=== PATIENT | male | born 1985 | race American Indian/Alaskan Native ===

== ENCOUNTER 2017-03-17 17:02 | Inpatient (IN) | payer MEDICARE, OTHER ==
[2017-03-17] MEDS ORDERED: Oxycodone/Acetaminophen 5/325 mg Tab PO STA ×2 (17:12→18:14)
[2017-03-17] MEDS ORDERED: Oxycodone/Acetaminophen 5/325 mg Tab ONE ×2 (17:26→18:17)
[2017-03-17 17:27] VITALS: BMI 33.9
--- NOTE | 2017-03-17 17:31 | C.PDOC ---
History Of Present Illness 31 y/o male brought to ER by EMT presenting complaints of acute bilateral knee pain. Patient states sitting down on sofa and when standing felt sudden pain and deformity accompanied by swelling on both knees. Patient has past medical history of extensive cardiac and hemodialysis but no blood thinners. No other complaints at this time. Time Seen by Provider: 03/17/17 17:05 Chief Complaint (Nursing): Lower Extremity Problem/Injury History Per: Patient History/Exam Limitations: no limitations Onset/Duration Of Symptoms: Hrs Current Symptoms Are (Timing): Still Present Severity: Mild - Hip Description Of Injury: Other (Sudden after sitting on sofa ) Past Medical History Reviewed: Historical Data, Nursing Documentation, Vital Signs Vital Signs: Last Vital Signs Temp 98.2 F 03/17/17 17:15 Pulse 87 03/17/17 20:10 Resp 22 03/17/17 20:10 BP 164/103 H 03/17/17 20:17 Pulse Ox 97 03/17/17 20:10 - Medical History PMH: Asthma (last attack sep 2013), HTN, End Stage Renal Disease (dialysis [facility]) , Chronic Kidney Disease - [facility] Procedures HEMODIALYSIS (10/05/13) OTHER SKIN & SUBQ I D (06/04/13) Family History: States: Unknown Family Hx - Social History Hx Tobacco Use: No Hx Alcohol Use: No Hx Substance Use: No - Immunization History Hx Tetanus Toxoid Vaccination: Yes Hx Influenza Vaccination: Yes Hx Pneumococcal Vaccination: No Review Of Systems Except As Marked, All Systems Reviewed And Found Negative. Constitutional: Negative for: Fever, Chills Cardiovascular: Negative for: Chest Pain Respiratory: Negative for: Shortness of Breath Gastrointestinal: Negative for: Nausea, Vomiting, Diarrhea Musculoskeletal: Positive for: Other (Pain on both knees) Skin: Negative for: Rash Physical Exam - Physical Exam Appears: Non-toxic Skin: Normal Color Head: Atraumatic, Normacephalic, No Tenderness Eye(s): bilateral: Normal Inspection Oral Mucosa: Moist Neck: Normal ROM Cardiovascular: Rhythm Regular Respiratory: No Rales, No Rhonchi, No Wheezing Back: Normal Inspection Extremity: Deformity (Bilateral knees deformed w/ bilateral effusions), Other Extremity: Bilateral: Joint Effusion Neurological/Psych: Oriented x3, Normal Speech, Normal Cognition Pain Response: Withdraws With Pain ED Course And Treatment - Laboratory Results Result Diagrams: 03/17/17 17:45 03/17/17 17:45 Lab Interpretation: Abnormal (mild elev Trop) ECG: Interpreted By Me ECG Rhythm: Sinus Rhythm, ST/T Changes (depressions v4-6, no ST elevations) ECG Interpretation: Normal, Abnormal Rate From EC O2 Sat by Pulse Oximetry: 98 Pulse Ox Interpretation: Normal - Radiology CXR: Interpreted by Me CXR Interpretation: Yes: Heart Size (impressive cardiomegaly) - CT Scan/US CT Right Lower Extremity w/o Contrast, Knee Other Rad Studies (CT/US): Interpreted By Me, Read By Radiologist CT/US Interpretation: IMPRESSION: 1. Prajapati Geena. 2. Small joint effusion. 3. The patellar tendon is not resolved as a separate structure however there are indirect findings. which suggest abnormal laxity/rupture of the proximal patellar tendon CT Left Lower Extremity w/o Contrast, Knee Other Rad Studies (CT/US): Interpreted By Me, Read By Radiologist CT/US Interpretation: IMPRESSION: 1. Patella geena. 2. Complex joint effusion suggesting hemarthrosis. 3. The patellar tendon is not resolved as a separate structure however there are indirect findings. which suggest abnormal laxity/ rupture of the proximal patellar tendon Progress Note: due to enlarged cardiac silhouette bedside ultrasound brief exam : no pericardial effusion noted. Reevaluation Time: 21:10 Reassessment Condition: Improved - Physician Consult Information Outcome Of Conversation: d/w Dr. Harris- Bank Note Designer- usually M/W/F HD. pt with significant elev Ca++, was due for parathyroidectomy 05/20 but surgery not performed. aware of mild elev Trop- prob secondary to heart condition and ESRD - no acute interventions required- anti-coagulation contraindicated in bleeding b/l knee joints. pt with no designated PMD. d/w Dr. Diaz- Ortho Coil Maker- ok to Consult. asks for b/l knee immobilizers. 2020: d/w Dr. Parr- Medicine Coil Maker- OK to Tele Obs Critical Care Time - Critical Care Note Total Time (in mins): 90 Documented critical care: time excludes all time spent performing seperately billable procedures. Medical Decision Making Medical Decision Making: b/l patellar tendon rupture while standing from sitting, probably related to osteopenia secondary to lower Ca+ due to elevated PTH 1500 (H) Low EJF approx 20% with defibrillator- pt of Dr. Skinner- consult for Medical Clearance Disposition Doctor Will See Patient In The: Hospital Counseled Patient/Family Regarding: Studies Performed, Diagnosis - Disposition Disposition: HOSPITALIZED Disposition Time: 21:14 Condition: GOOD - Clinical Impression Clinical Impression: Elevated troponin, Patellar tendon rupture - PA / FUR DESIGNER / Resident Statement MD/DO has reviewed & agrees with the documentation as recorded. MD/DO has examined the patient and agrees with the treatment plan. - Scribe Statement The provider has reviewed the documentation as recorded by the Chiquisibliberty Iverson All medical record entries made by the Mel were at my direction and personally dictated by me. I have reviewed the chart and agree that the record accurately reflects my personal performance of the history, physical exam, medical decision making, and the department course for this patient. I have also personally directed, reviewed, and agree with the discharge instructions and disposition.
--- NOTE | 2017-03-17 17:31 | RAD ---
PROCEDURE: CHEST RADIOGRAPH, 1 VIEW HISTORY: SOB COMPARISON: Comparison is made to the previous study dated 07/18/2016 FINDINGS: LUNGS: No significant interval change in the lungs. PLEURA: No pneumothorax or pleural fluid seen. CARDIOVASCULAR: The cardiac silhouette is enlarged. Correlate clinically for possible pericardial effusion. Left-sided AICD is seen in place. OSSEOUS STRUCTURES: No significant abnormalities. VISUALIZED UPPER ABDOMEN: Normal. OTHER FINDINGS: None. IMPRESSION: Enlargement of the cardiac silhouette. Correlate clinically for pericardial effusion. No evidence of acute pulmonary disease.
--- NOTE | 2017-03-17 17:34 | RAD ---
PROCEDURE: Bilateral Knee Radiographs. HISTORY: acute pain/deformity while standing COMPARISON: None. FINDINGS: BONES: Right Knee: No evidence of acute fracture. Suspicious for superior dislocation of the patella. Left Knee: Normal. No fracture. JOINTS: Right Knee: Normal. No osteoarthritis. Left knee: Normal. No osteoarthritis. SOFT TISSUES: Right Knee: Soft tissue swelling seen around the right knee. Left Knee: Normal. JOINT EFFUSION: Right Knee: Suspicious for joint effusion. Left Knee: None. OTHER FINDINGS: None. IMPRESSION: Soft tissue swelling at the right knee. Suspicious for dislocation of the right patella and patellar tendon rupture. Right knee joint effusion. Further assessment by CT or MRI is recommended.
[2017-03-17 17:54] LABS: BASO # 0.1 K/uL (0.0-0.2); BASO % 1.5 % (0.0-2.0); EOS # 0.8 K/uL (0.0-0.7); EOS % 9.2 % (0.0-4.0); HEMATOCRIT 31.7 % (35.0-51.0); LYMPH # 0.9 K/uL (1.0-4.3); LYMPH % 10.2 % (20.0-40.0); MEAN CORPUSCULAR HEMOGLOBIN 30.1 pg (27.0-31.0); MEAN CORPUSCULAR HGB CONC 33.2 g/dL (33.0-37.0); MONO # 0.6 K/uL (0.0-0.8); WHITE BLOOD COUNT 8.7 K/uL (4.8-10.8)
[2017-03-17 17:56] LABS: MEAN CELL VOLUME 90.5 fL (80.0-94.0)
[2017-03-17 18:05] LABS: INR 1.1
[2017-03-17 18:12] LABS: CHLORIDE 89 mmol/L (98-107); SODIUM 135 mmol/L (132-148)
[2017-03-17 18:14] LABS: BILIRUBIN,TOTAL 1.2 mg/dL (0.2-1.3); GFR AFRICAN-AMERICAN 7
[2017-03-17 18:15] LABS: ALB/GLOB RATIO 1.1 (1.0-2.1); ALKALINE PHOSPHATASE 676 U/L (38-126); ALT/SGPT 21 U/L (21-72); AST/SGOT 40 U/L (17-59); BLOOD UREA NITROGEN 66 mg/dL (9-20); CALCIUM 9.6 mg/dl (8.6-10.4); CARBON DIOXIDE 28 mmol/L (22-30); GLUCOSE,RANDOM 140 mg/dL (75-110); TOTAL PROTEIN 7.5 g/dL (6.3-8.3)
[2017-03-17 18:16] LABS: ALCOHOL SERUM < 10 mg/dl (0-10)
--- NOTE | 2017-03-17 19:26 | CT ---
EXAM: CT Right Lower Extremity Without Intravenous Contrast, Knee CLINICAL HISTORY: 31 years old, male; Pain; Knee; Bilatera; Additional info: Suspect patellar lig disrupt TECHNIQUE: Axial computed tomography images of the right knee without intravenous contrast. This CT exam was performed using one or more of the following dose reduction techniques: automated exposure control, adjustment of the mA and/or kV according to patient size, and/or use of iterative reconstruction technique. Coronal and sagittal reformatted images were created and reviewed. COMPARISON: No relevant prior studies available. FINDINGS: Bones/joints: There appears to be right lateral patellar subluxation. A small joint effusion is present. The patellar tendon is not clearly resolved. The distal aspect of the patella is angulated anteriorly which suggests abnormal laxity or disruption of the the patellar ligament. Soft tissue thickening is noted inferior to the patella. There is calcification of patellar ligament. No acute fracture. Soft tissues: See above. Vasculature: Prominent vascular calcifications are present. Other findings: There appears to be Prajapati Jaymie IMPRESSION: 1. Prajapati [place] 2. Small joint effusion. 3. The patellar tendon is not resolved as a separate structure however there are indirect findings which suggest abnormal laxity/rupture of the proximal patellar tendon EXAM: CT Left Lower Extremity Without Intravenous Contrast, Knee CLINICAL HISTORY: 31 years old, male; Pain; Knee; Bilatera; Additional info: Suspect patellar lig disrupt TECHNIQUE: Axial computed tomography images of the left knee without intravenous contrast. This CT exam was performed using one or more of the following dose reduction techniques: automated exposure control, adjustment of the mA and/or kV according to patient size, and/or use of iterative reconstruction technique. Coronal and sagittal reformatted images were created and reviewed. EXAM DATE/TIME: Exam ordered 03/17/2017 5:37 PM COMPARISON: No relevant prior studies available. FINDINGS: Bones/joints: Is osteopenia There is a moderate to large joint effusion with a fluid/fluid level present suggesting hemarthrosis. The distal tip of the patella is angled anteriorly which does suggest disruption of the patellar ligament. There is calcification of the patellar ligament. No acute fracture. No dislocation. Soft tissues: Abnormal soft tissue thickening is noted in the region of the soft tissues inferior to the patella. Other findings: There appears to be Prajapati Jaymie. Vascular calcifications are present. IMPRESSION: 1. Patella jaymie 2. Complex joint effusion suggesting hemarthrosis. 3. The patellar tendon is not resolved as a separate structure however there are indirect findings which suggest abnormal laxity/rupture of the proximal patellar tendon
[2017-03-17] MEDS: Oxycodone/Acetaminophen 5/325 mg Tab PO PRN (23:12)
[2017-03-18] MEDS: Oxycodone/Acetaminophen 5/325 mg Tab PO PRN ×4 (04:36→19:33)
--- NOTE | 2017-03-18 07:46 | CP.PCM.CON ---
History of Present Illness - History of Present Illness History of Present Illness: 31 y/omale with h/o cardiomyopatehy,s/p ICD, esrd on dialysis, HTN lost his footing and sufferedtrauma to both pattellers BL. No LOC or shock, no cp sob Review of Systems - Review of Systems Systems not reviewed;Unavailable: Acuity of Condition - Constitutional Constitutional: Fatigue - EENT Eyes: absent: Change in Vision Ears: absent: Ear Discharge Nose/Mouth/Throat: absent: Nasal Discharge - Cardiovascular Cardiovascular: absent: Palpitations, Syncope - Respiratory Respiratory: absent: Dyspnea on Exertion - Gastrointestinal Gastrointestinal: absent: Abdominal Pain - Genitourinary Genitourinary: absent: Dysuria - Musculoskeletal Musculoskeletal: absent: Back Pain - Integumentary Integumentary: absent: Bleeding Lesions - Neurological Neurological: absent: Tingling - Psychiatric Psychiatric: absent: Anxiety - Endocrine Endocrine: absent: Change in Libido - Hematologic/Lymphatic Hematologic: absent: Easy Bruising Past Patient History - Past Medical History & Family History Past Medical History?: Yes - Past Social History Smoking Status: Never Smoked - CARDIAC Hx Hypertension: Yes - PULMONARY Hx Asthma: Yes (last attack sep 2013) - NEUROLOGICAL Hx Neurological Disorder: No - HEENT Hx HEENT Problems: No - RENAL Hx Chronic Kidney Disease: Yes Date of Last Dialysis Treatment: 09/24/15 - ENDOCRINE/METABOLIC Hx Endocrine Disorders: No - HEMATOLOGICAL/ONCOLOGICAL Hx Blood Disorders: Yes Hx Blood Transfusions: Yes (2010) Hx Blood Transfusion Reaction: No - INTEGUMENTARY Hx Dermatological Problems: No - MUSCULOSKELETAL/RHEUMATOLOGICAL Hx Falls: Yes - GASTROINTESTINAL Hx Gastrointestinal Disorders: No - GENITOURINARY/GYNECOLOGICAL Other/Comment: dialysis pt.doesn't make urine - PSYCHIATRIC Hx Substance Use: No - SURGICAL HISTORY Hx Surgeries: Yes Hx Arteriovenous Shunt: Yes (left upper arm 2010) Hx Vascular Access Device: Yes (2010, removed 2 months later) - ANESTHESIA Hx Anesthesia: Yes Hx Anesthesia Reactions: No Hx Malignant Hyperthermia: No Meds Allergies/Adverse Reactions: Allergies Allergy/AdvReac Type Severity Reaction Status Date / Time No Known Allergies Allergy Verified 07/18/16 01:42 - Medications Medications: Current Medications Acetaminophen (Tylenol 325mg Tab) 325 mg PO Q6 PRN PRN Reason: Pain, moderate (4-7) Cinacalcet (Sensipar) 30 mg PO DAILY [facility] Isosorbide Mononitrate (Imdur) 30 mg PO DAILY [facility] Lisinopril (Zestril) 10 mg PO DAILY [facility] Metoprolol Tartrate (Lopressor) 25 mg PO BID [facility] Oxycodone/Acetaminophen (Percocet 5/325 Mg Tab) 1 tab PO Q4H PRN PRN Reason: Pain, moderate (4-7) Stop: 03/20/17 22:32 Last Admin: 03/18/17 04:36 Dose: 1 tab Sevelamer Carbonate (Renvela) 800 mg PO BID [facility] Physical Exam - Constitutional Appears: Well - Head Exam Head Exam: NORMAL INSPECTION - Eye Exam Eye Exam: Normal appearance - ENT Exam ENT Exam: Mucous Membranes Moist - Respiratory Exam Respiratory Exam: Clear to Auscultation Bilateral - Cardiovascular Exam Cardiovascular Exam: REGULAR RHYTHM - GI/Abdominal Exam GI & Abdominal Exam: Normal Bowel Sounds - Exam External exam: NORMAL EXTERNAL EXAM - Extremities Exam Extremities exam: Positive for: normal inspection - Neurological Exam Neurological exam: Alert, Oriented x3 - Psychiatric Exam Psychiatric exam: Normal Affect, Normal Mood - Skin Skin Exam: Warm Results - Vital Signs Recent Vital Signs: Last Vital Signs Temp 98.2 F 03/17/17 23:20 Pulse 83 03/17/17 23:20 Resp 20 03/17/17 23:20 BP 145/87 03/17/17 23:20 Pulse Ox 99 03/17/17 21:30 - Labs Result Diagrams: 03/19/17 12:04 03/19/17 12:04 Labs: Laboratory Results - last 24 hr 03/18/17 00:28 Total Creatine Kinase 207 H CK-MB (Mass) 0.56 Troponin I, Quant 0.1980 H* Assessment & Plan (1) Elevated troponin Assessment and Plan: Pt s/p nl stress in office troponins prob RV dilatation dialysis for fluid removal will have ICD interrogated Status: Acute (2) Patellar tendon rupture Status: Acute (3) Dilated cardiomyopathy Status: Acute (4) ESRD (end stage renal disease) on dialysis Status: Acute
--- NOTE | 2017-03-18 14:34 | CP.PCM.HP ---
History of Present Illness - History of Present Illness History of Present Illness: COMPREHENSIVE HISTORY & PHYSICAL EXAM HPI PT. ADMITTED WITH JARRETT PATELLAR TENDON RUPTURE PT STATES THAT HE TRIED TO GET UP FROM CHAIR AND HEARD A POP: SOUND AND NOTICED SEVERE PAIN AND SWELLING OF BOTH KNEES . PT WAS EVALUATED IN ER AND HAS JARRETT PATELLAR LIG. TEAR. PT IS HAS NOT TAKE ANY AB, QUINILONES RECENT OR PAST PT HAD BORDERLINE TNI POS PAST HIST. HAS END STAGE CARDIOMYOPATHY WITH EF 15% SEC TO HTN. RENAL FAILURE ON HD , AICD NO DM PERSONAL HIST: Smoking. N Alcohol. Y Allergy N Travel_- . FAMILY HIST : ROS : Constitutional: Negative for weight change, chills, night sweats, fatigue and usage of assist device. Eyes: Negative for redness, swelling, itching, discharge, vision changes, blurry vision, double vision, glaucoma, cataracts, Ears: Negative for hearing loss, ringing, , tinnitus, vertigo Nose: Negative for rhinorrhea, stuffiness, sniffing, itching, postnasal drip, discoloration, nasal congestion and epistaxis. Throat: Negative for throat clearing, sore throat, hoarseness, difficulty swallowing and difficulty speaking. Respiratory: Negative for cough, chest tightness, sputum or phlegm, chronic cough, hemoptysis, wheezing, snoring at night, pleuritic chest pain and daytime somnolence. Cardiovascular: Negative for chest pain, palpitations, orthopnea, PND, Edema of legs, leg cramps, angina, claudication, , irregular heartbeat, Neurology: Negative for irritability, muscle weakness, numbness and tingling, seizures, tremors, migraines, slurred speech, syncope, memory loss, mood changes , recurrent headaches Gastrointestinal: Negative for difficulty swallowing, diarrhea, constipation, black stools, rectal bleeding, nausea, flatulence, reflux, poor appetite, changes in bowel habits, abdominal pain Genitourinary: Negative for frequent urination, hematuria, discharge, incontinence, urinary retention, frequent UTI, Psychiatric: Negative for depression, anxiety/panic, suicidal tendencies, Musculoskeletal: JARRETT KNEE PAIN AND SWELLING . Skin: Negative for rash, ulcers, itching, dry skin and pigmented lesions. P/E: Constitutional: Appears stated age and in no apparent distress. Head: Normocephalic. Ears: External ear canals patent without inflammation. Tympanic membranes intact with normal light reflex and landmark. Eyes: Pupils are central, bilaterally equal, symmetrical and reacts to light with normal movements and no icterus or pallor. Nose: External nares are patent. Mucosa is pink Mouth-Throat: Good general appearance and condition. No post-pharyngeal/oropharyngeal erythema and tonsillar hypertrophy. Good dental hygiene. Neck-Lymphatic: Neck is supple with normal ROM, no thyromegaly, lymph nodes or masses. JVD is normal with no carotid bruit. Lungs: Clear to percussion and auscultation with bilateral normal air entry. Cardiovascular: S1 and S2 are normal with no murmurs, gallops and rub. GI Exam: No hepatomegaly. Abdomen is soft and non-tender. No Organomegaly , masses or hernias are evident and bowel sounds are normal and active. Neurology: Higher function and all cranial nerves intact, with no gross motor or sensory deficit. Superficial and deep reflexes are normal with downwards planters. No cerebellar deficit with normal gait. Musculoskeletal: No tender spots with normal curvature of the spine with no swelling or restricted ROM of the small and large joints. Extremities: Homans sign absent. Intact pulses with no pitting edema, calf tenderness or skin color changes. LEFT ARM AV SHUNT WITH THRILL. BOTH KNEES ARE SWOLLEN WITH DEC. ROM . A GAP IN THE PATELLAR LIGAMENT Skin: No rash, eruptions or abnormal skin pigmentation LAB/RADIOLOGY: ASSESMENT : SPONTANEOUS PATELLAR RUPTURE NON ISCHEMIC CARDIOMYOPATHY WITH AICD CRF ON HD HTN PLAN: LOCAL SUPPORTIVE TREATMENT HIGH RISK FOR SURGICAL INTERVENTION POS TNI ARE NON SPECIFIC Present on Admission - Present on Admission Any Indicators Present on Admission: No Past Patient History - Past Medical History & Family History Past Medical History?: Yes - Past Social History Smoking Status: Never Smoked - CARDIAC Hx Hypertension: Yes - PULMONARY Hx Asthma: Yes (last attack sep 2013) - NEUROLOGICAL Hx Neurological Disorder: No - HEENT Hx HEENT Problems: No - RENAL Hx Chronic Kidney Disease: Yes Date of Last Dialysis Treatment: 09/24/15 - ENDOCRINE/METABOLIC Hx Endocrine Disorders: No - HEMATOLOGICAL/ONCOLOGICAL Hx Blood Disorders: Yes Hx Blood Transfusions: Yes (2010) Hx Blood Transfusion Reaction: No - INTEGUMENTARY Hx Dermatological Problems: No - MUSCULOSKELETAL/RHEUMATOLOGICAL Hx Falls: Yes - GASTROINTESTINAL Hx Gastrointestinal Disorders: No - GENITOURINARY/GYNECOLOGICAL Other/Comment: dialysis pt.doesn't make urine - PSYCHIATRIC Hx Substance Use: No - SURGICAL HISTORY Hx Surgeries: Yes Hx Arteriovenous Shunt: Yes (left upper arm 2010) Hx Vascular Access Device: Yes (2010, removed 2 months later) - ANESTHESIA Hx Anesthesia: Yes Hx Anesthesia Reactions: No Hx Malignant Hyperthermia: No Meds Allergies/Adverse Reactions: Allergies Allergy/AdvReac Type Severity Reaction Status Date / Time No Known Allergies Allergy Verified 07/18/16 01:42 Results - Vital Signs Recent Vital Signs: Last Vital Signs Temp 98.1 F 03/18/17 07:30 Pulse 78 03/18/17 07:30 Resp 18 03/18/17 07:30 BP 130/72 03/18/17 12:37 Pulse Ox 97 03/18/17 07:30 - Labs Result Diagrams: 03/17/17 17:45 03/17/17 17:45 Labs: Laboratory Results - last 24 hr 03/18/17 03/18/17 00:28 07:48 Total Creatine Kinase 207 H 254 H CK-MB (Mass) 0.56 0.61 Troponin I, Quant 0.1980 H* 0.2170 H*
--- NOTE | 2017-03-18 16:17 | CP.PCM.PN ---
Subjective - Date & Time of Evaluation Date of Evaluation: 03/18/17 Time of Evaluation: 16:16 - Subjective Subjective: consulr dictated orders written Objective - Vital Signs/Intake and Output Vital Signs (last 24 hours): Temp Pulse Resp BP Pulse Ox 98.1 F 78 18 130/72 97 03/18/17 07:30 03/18/17 07:30 03/18/17 07:30 03/18/17 12:37 03/18/17 07:30 - Medications Medications: Current Medications Acetaminophen (Tylenol 325mg Tab) 325 mg PO Q6 PRN PRN Reason: Pain, moderate (4-7) Cinacalcet (Sensipar) 30 mg PO DAILY [facility] Isosorbide Mononitrate (Imdur) 30 mg PO DAILY [facility] Last Admin: 03/18/17 09:06 Dose: 30 mg Lisinopril (Zestril) 10 mg PO DAILY [facility] Last Admin: 03/18/17 09:06 Dose: 10 mg Metoprolol Tartrate (Lopressor) 25 mg PO BID [facility] Last Admin: 03/18/17 12:37 Dose: 25 mg Oxycodone/Acetaminophen (Percocet 5/325 Mg Tab) 1 tab PO Q4H PRN PRN Reason: Pain, moderate (4-7) Stop: 03/20/17 22:32 Last Admin: 03/18/17 12:35 Dose: 1 tab Sevelamer Carbonate (Renvela) 2,400 mg PO TIDCC [facility] - Labs Labs: PT 12.8 SECONDS (9.7-12.2) H 03/17/17 17:45 INR 1.1 03/17/17 17:45 APTT 31 SECONDS (21-34) 03/17/17 17:45
--- NOTE | 2017-03-18 17:50 | CON ---
DATE: 03/18/2017 REQUESTING PHYSICIAN: Dr. Parr. HISTORY OF PRESENT ILLNESS: This is 31-year-old black gentleman is being seen in renal consultation because of chronic renal failure, end-stage renal disease, and dialysis dependence. He is on dialysi s Sunday, Sunday and Sunday at the [facility] located in [place]. His last treatmen t was on Sunday without events. Yesterday at home, he tried to get up from a chair and heard bilater al pops in his knees, which became swollen, and he was unable to stand or walk and ER evaluation has shown bilateral patellar ligament tears. This is consistent with his longstanding history of severe secondary hyperparathyroidism, for which we have been trying to get him to have surgical intervention for over the last 2 years without success or to no avail. The patient is well known to us and is followed both in the office and in the dialysis center. His m edicine list includes Renvela 800 three tablets 3 times a day with meals and also with snacks t ablets p.o. daily, sodium bicarbonate 650 twice a day, isosorbide 60 once a day, renal capsules, a mu ltivitamin once a day, clonidine 0.1 in the a.m. and 2 tablets in the p.m., add amlodipine 10, isosor bide 60 in the afternoon. The patient was planning parathyroid surgery with Dr. Hodge, I believe, at [facility]. He was asked to have a transplant and cardiac clearance [facility] in [facility], which was ongoing. Unfortunately, over the past 2-3 years, he has had multiple e xcuses for not following up and having the surgery done when recommended A copious amount of outpatie nt data and charts from the office were printed and placed on his physical paper chart at [facility]. The patient was originally seen by me in 01/2009 at the request of Dr. Demarco Cerna, his prim [place] [facility] physician at that time, in [place] for renal evaluation. At that time, he also had signific ant azotemia with a serum creatinine of 2.88, MDRD clearance of only 34 mL per minute, stage III CKD at presentation, and he was only 23 years old. He had significant accelerated or malignant hypertensi on. He has had some hospital stays with systolics well over 200 over the years. In 01/2009, he was recommended to have admission to the hospital, but he declined. Prior to his initial evaluation, the re was no history of nephritis, nephrosis, Bright's disease, scarlet fever, diphtheria, or rheumatic heart disease. Denied chronic urinary tract infections, bladder infections, cystitis, or pyelonephri tis. Denied frequency, urgency, or hesitancy. There was a significant history of kidney diseases. Ute is aunt had kidney disease, was on dialysis. The whole family has hypertension and his mother also h ad diabetes. During his hospital physical back in 2005, he was told that his blood pressure was high . He has had significant microalbuminuria in the past and workup and evaluation was initiated in . We discussed the need of kidney biopsy at that time. Unfortunately, patient did not follow up wi th any of the recommendations and did not return for further treatment. He then again was seen in 24 09 with a creatinine of 12 and a blood pressure systolic of 204 and I believe he was placed on dialys is at that point in time. Since 2014, we have been strenuously encouraging him to have parathyroid s urgery. He has had some of the highest PTH levels I have seen in my 35 years of nephrology practice; however, it is not the first case of ligament rupture that I have had because of severe secondary hy perparathyroidism. This is a known consequence of poorly controlled secondary hyperparathyroidism. In 2012, he was also seen here at [facility] when he presented with shortness of breath and hype rtension. He also had 05/2013 presentation with an abscess in his right hand that was infected. Had an I and D done by Dr. Ferguson at that time and was placed on antibiotics and thankfully that was n ot a problem thereafter. When seen in renal consultation 11/2011 when he was 26, he was not complian t with his medications at that time and the BUN was 207 with a creatinine of 44. He has had obviousl y a problem with compliance, both to medical care, antibiotics and followup over the years. This was again expressed to him today at the bedside and in front of his family, who hopefully will get him t o follow up with the medical management that has been recommended over the course of the years; michelle jensen, unfortunately, we his rupture of his patellar tendons at this time. SOCIAL HISTORY: Born in 1984 at [place]. Nonsmoker. Single, has a girlfriend. No alcohol, no IV d rug abuse. FAMILY HISTORY: As stated above. REVIEW OF SYSTEMS: Rest of the 10-point review of systems is negative except as outlined above. PHYSICAL EXAMINATION: GENERAL: Shows a well-developed, well-nourished gentleman, in no acute distress. HEAD: Normocephalic, atraumatic. EYES: PERRLA, EOMs full, unable to visualize fundi. NECK: Supple. Neck veins flat, fill from above. No bruit. Thyroid not enlarged. THORAX: Symmetrical. LUNGS: Decreased breath sounds, but clear to percussion and auscultation. CARDIAC: PMI in the 6th left intercostal space to midclavicular line. Heart sounds good quality wit h a II-III/ systolic murmur, no S3, no rub. ABDOMEN: Soft, nontender, no gross organomegaly, no mass, no bruit. EXTREMITIES: Trace edema. Pulses are equal and intact. NEUROLOGIC: Oriented to time, place, and person. Gross motor, sensory, coordination within normal l imits. IMPRESSION: Chronic renal failure, end-stage renal disease in a 31-year-old gentleman with severe se condary hyperparathyroidism. PTH levels despite medications between 3000 and 4000, 65. Parathy roidectomy is still recommended. May need orthopedic intervention, as per ortho. Overall, prognosis is guarded. Presently, the BNP is quite high along with an elevated troponin. Dr. Parr with card iology will follow up in that regard. Overall, prognosis is guarded. We will follow with you and Dr Onur Beth will cover me while here. Thank you for involving me in your patient's care. Toro Meeks MD cc: [id number] TT: 03/18/2017 17:49:41 Confirmation # [id number] Dictation # [id number] ln
[2017-03-19] MEDS: Oxycodone/Acetaminophen 5/325 mg Tab PO PRN ×5 (00:29→21:21)
--- NOTE | 2017-03-19 09:55 | CP.PCM.CON ---
History of Present Illness - History of Present Illness History of Present Illness: Orthopedic consultation requested Dr. Diaz for B knee pain 31M complains of B knee pain x 2 days. He says he was quickly getting up from sofa, and he felt severe pain and heard pop in both knees. After this, he was unable to move his knees and he came to the ER. Denies numbness/tingling. Denies CP/SOB/dizziness. Denies nausea/vomiting. Prior antibiotic use, nothing recent. Denies any prior knee pain, injury, or injection. He denies any other injury. PMH: ESRD on HD, cardiomyopathy, AICD, HTN, asthma, secondary hyperparathyroidism, (parathyroidectomy recommended, patient did not complete) Review of Systems - Review of Systems All systems: reviewed and no additional remarkable complaints except - Constitutional Additional comments: denies - Cardiovascular Cardiovascular: As Per HPI - Respiratory Respiratory: As Per HPI - Gastrointestinal Gastrointestinal: As Per HPI - Musculoskeletal Musculoskeletal: As Per HPI - Integumentary Integumentary: Swelling - Neurological Neurological: As Per HPI - Hematologic/Lymphatic Hematologic: absent: As Per HPI, Easy Bleeding, Easy Bruising, Lymphadenopathy, Other Past Patient History - Past Medical History & Family History Past Medical History?: Yes Past Family History: Reviewed and not pertinent - Past Social History Smoking Status: Never Smoked - CARDIAC Hx Cardiac Disorders: Yes Hx Hypertension: Yes Other/Comment: cardiomyopathy, low EF - PULMONARY Hx Asthma: Yes (last attack sep 2013) - NEUROLOGICAL Hx Neurological Disorder: No - HEENT Hx HEENT Problems: No - RENAL Hx Chronic Kidney Disease: Yes Date of Last Dialysis Treatment: 03/16/17 - ENDOCRINE/METABOLIC Hx Endocrine Disorders: No - HEMATOLOGICAL/ONCOLOGICAL Hx Blood Disorders: Yes Hx Blood Transfusions: Yes (2010) Hx Blood Transfusion Reaction: No - INTEGUMENTARY Hx Dermatological Problems: No - MUSCULOSKELETAL/RHEUMATOLOGICAL Hx Falls: Yes - GASTROINTESTINAL Hx Gastrointestinal Disorders: No - GENITOURINARY/GYNECOLOGICAL Other/Comment: dialysis pt.doesn't make urine - PSYCHIATRIC Hx Substance Use: No - SURGICAL HISTORY Hx Surgeries: Yes Hx Arteriovenous Shunt: Yes (left upper arm 2010) Hx Vascular Access Device: Yes (2010, removed 2 months later) Other/Comment: AICD - ANESTHESIA Hx Anesthesia: Yes Hx Anesthesia Reactions: No Hx Malignant Hyperthermia: No Meds Allergies/Adverse Reactions: Allergies Allergy/AdvReac Type Severity Reaction Status Date / Time No Known Allergies Allergy Verified 07/18/16 01:42 - Medications Medications: Current Medications Acetaminophen (Tylenol 325mg Tab) 325 mg PO Q6 PRN PRN Reason: Pain, moderate (4-7) Cinacalcet (Sensipar) 30 mg PO DAILY [facility] Isosorbide Mononitrate (Imdur) 30 mg PO DAILY [facility] Last Admin: 03/18/17 09:06 Dose: 30 mg Lisinopril (Zestril) 10 mg PO DAILY [facility] Last Admin: 03/18/17 09:06 Dose: 10 mg Metoprolol Tartrate (Lopressor) 25 mg PO BID [facility] Last Admin: 03/18/17 18:27 Dose: 25 mg Oxycodone/Acetaminophen (Percocet 5/325 Mg Tab) 1 tab PO Q4H PRN PRN Reason: Pain, moderate (4-7) Stop: 03/20/17 22:32 Last Admin: 03/19/17 08:28 Dose: 1 tab Pneumococcal Polyvalent Vaccine (Pneumovax 23 Vaccine) 0.5 ml IM .ONCE ONE Stop: 03/19/17 10:01 Sevelamer Carbonate (Renvela) 2,400 mg PO TIDCC [facility] Last Admin: 03/19/17 09:50 Dose: 2,400 mg Physical Exam - Constitutional Appears: Well, No Acute Distress - Head Exam Head Exam: ATRAUMATIC, NORMAL INSPECTION - Respiratory Exam Respiratory Exam: NORMAL BREATHING PATTERN - Cardiovascular Exam Additional comments: +DP/PT pulses BLE calves soft NT neg homans - Expanded Lower Extremities Exam Left Knee exam: effusion, swelling, tenderness (No active extension of knee. Palpable defect of patellar tendon. Patella sits proximally to joint. Sensation intact to BLE. Calves soft NT neg homans. +ROM ankle/toes. Geoff bandages and knee immobilizers applied BLE. ) Neuro vacular tendon exam: no vascular compromise Right Knee exam: effusion (No active extension of knee. Palpable defect of patellar tendon. Patella sits proximally to joint. Sensation intact to BLE. Calves soft NT neg homans. +ROM ankle/toes. Geoff bandages and knee immobilizers applied BLE.) , swelling, tenderness Neuro vacular tendon exam: no vascular compromise - Neurological Exam Neurological exam: Alert, Oriented x3 - Psychiatric Exam Psychiatric exam: Normal Affect, Normal Mood - Skin Skin Exam: Dry, Intact, Normal Color, Warm Results - Vital Signs Recent Vital Signs: Last Vital Signs Temp 98.1 F 03/19/17 07:54 Pulse 93 H 03/19/17 07:54 Resp 20 03/19/17 07:54 BP 147/96 H 03/19/17 07:54 Pulse Ox 97 03/19/17 07:54 - Labs Result Diagrams: 03/17/17 17:45 03/17/17 17:45 Labs: Laboratory Results - last 24 hr 03/18/17 17:11 Total Creatine Kinase 241 H CK-MB (Mass) 0.58 Troponin I, Quant 0.1850 H* Assessment & Plan (1) Rupture of right patellar tendon Assessment and Plan: surgical repair of bilateral patellar tendons indicated knee immobilizer, ice, elevation WBAT in immobilizers, PT referral today d/w Dr. Diaz, states patient to be discharged home and to f/u in office for scheduling as outpatient, likely to be scheduled for surgery 03/27. Will wait for swelling to improve, ice, knee immobilizers at all times. Patient to call immediately upon d/c for f/u appt with Dr. Diaz Patient will need medical/cardio/nephrology clearance prior to OR echo completed today, for HD today Per Dr. Diaz, recommend patient to be started on lovenox and discharged on lovenox 30mg SQ daily for VTE proph as patient increased risk due to swelling and decreased mobility. Lovenox to be held 24 hours prior to OR. PT ordered, patient has approx 12 steps into home. D/w Dr. Diaz, agrees with above Status: Acute (2) Rupture of left patellar tendon Assessment and Plan: see above Status: Acute Radiology Interpretation - Radiology Interpretation #2 Interpretation: Patient Name / ID : KAYLEEN AVALOS / [id number] Exam Date : 03/17/2017 18:39:08 ( Approved ) Study Comment : Sex / Age : M / 31Y Creator : CASSIA LACEY Dictator : Sewing Line Baler : Phototypesetter Operator : CASSIA LACEY Approver2 : Report Date : 03/17/2017 19:25:00 My Comment : [facility] Radiology [address] [place] [address] Tel. no. Patient Name: BAILEY BEYER Pt. Address: [address] [place] [address]. Rec #: [id number] [place] [address]: Don COTA,Mo Hoffman Pt Order Location: [facility] : 1985 Male Age: 31 Order #: [id number] Reason for exam: suspect patellar lig disrupt CT Scan EXT LOWER W/O CONTRAST BI Exam Date: 03/17/17 This imaging exam was performed at [facility] EXAM: CT Right Lower Extremity Without Intravenous Contrast, Knee CLINICAL HISTORY: 31 years old, male; Pain; Knee; Bilatera; Additional info: Suspect patellar lig disrupt TECHNIQUE: Axial computed tomography images of the right knee without intravenous contrast. This CT exam was performed using one or more of the following dose reduction techniques: automated exposure control, adjustment of the mA and/or kV according to patient size, and/or use of iterative reconstruction technique. Coronal and sagittal reformatted images were created and reviewed. COMPARISON: No relevant prior studies available. FINDINGS: Bones/joints: There appears to be right lateral patellar subluxation. A small joint effusion is present. The patellar tendon is not clearly resolved. The distal aspect of the patella is angulated anteriorly which suggests abnormal laxity or disruption of the the patellar ligament. Soft tissue thickening is noted inferior to the patella. There is calcification of patellar ligament. No acute fracture. Soft tissues: See above. Vasculature: Prominent vascular calcifications are present. Other findings: There appears to be Prajapati Geena IMPRESSION: 1. Prajapati [place] 2. Small joint effusion. 3. The patellar tendon is not resolved as a separate structure however there are indirect findings which suggest abnormal laxity/rupture of the proximal patellar tendon EXAM: CT Left Lower Extremity Without Intravenous Contrast, Knee CLINICAL HISTORY: 31 years old, male; Pain; Knee; Bilatera; Additional info: Suspect patellar lig disrupt TECHNIQUE: Axial computed tomography images of the left knee without intravenous contrast. This CT exam was performed using one or more of the following dose reduction techniques: automated exposure control, adjustment of the mA and/or kV according to patient size, and/or use of iterative reconstruction technique. Coronal and sagittal reformatted images were created and reviewed. EXAM DATE/TIME: Exam ordered 03/17/2017 5:37 PM COMPARISON: No relevant prior studies available. FINDINGS: Bones/joints: Is osteopenia There is a moderate to large joint effusion with a fluid/fluid level present suggesting hemarthrosis. The distal tip of the patella is angled anteriorly which does suggest disruption of the patellar ligament. There is calcification of the patellar ligament. No acute fracture. No dislocation. Soft tissues: Abnormal soft tissue thickening is noted in the region of the soft tissues inferior to the patella. Other findings: There appears to be Prajapati [place]. Vascular calcifications are present. IMPRESSION: 1. Patella geena 2. Complex joint effusion suggesting hemarthrosis. 3. The patellar tendon is not resolved as a separate structure however there are indirect findings which suggest abnormal laxity/rupture of the proximal patellar tendon Dictated By: Cassia Lacey MD Dictated Date/Time: 03/17/171924 Signed By: Cassia Lacey MD Date Signed: 1924 Transcribed By: [facility] Transcribe Date/Time : 03/17/171924 AKANKSHA/VALENTIN Patient Name / ID : KAYLEEN AVALOS / [id number] Exam Date : 03/17/2017 17:14:46 ( Approved ) Study Comment : Sex / Age : M / 31Y Creator : Naif Doherty Dictator : Naif Doherty Sewing Line Baler : Phototypesetter Operator : Naif Doherty Approver2 : Report Date : 03/17/2017 17:32:37 My Comment : PROCEDURE: Bilateral Knee Radiographs. HISTORY: acute pain/deformity while standing COMPARISON: None. FINDINGS: BONES: Right Knee: No evidence of acute fracture. Suspicious for superior dislocation of the patella. Left Knee: Normal. No fracture. JOINTS: Right Knee: Normal. No osteoarthritis. Left knee: Normal. No osteoarthritis. SOFT TISSUES: Right Knee: Soft tissue swelling seen around the right knee. Left Knee: Normal. JOINT EFFUSION: Right Knee: Suspicious for joint effusion. Left Knee: None. OTHER FINDINGS: None. IMPRESSION: Soft tissue swelling at the right knee. Suspicious for dislocation of the right patella and patellar tendon rupture. Right knee joint effusion. Further assessment by CT or MRI is recommended.
[2017-03-19] MEDS ORDERED: Pneumococcal 23-Valent Vaccine IM ONE (10:00)
--- NOTE | 2017-03-19 10:56 | CP.PCM.PN ---
<Cheryl Miner - Last Filed: 03/19/17 14:15> Subjective - Date & Time of Evaluation Date of Evaluation: 03/19/17 Time of Evaluation: 10:54 - Subjective Subjective: PGY-[address] Skinner Pt complained of b/l knee pain on knee immobilizer. Denies CP, SOB, diaphoresis , N.V.D.C. Pt is anuric Objective - Vital Signs/Intake and Output Vital Signs (last 24 hours): Temp Pulse Resp BP Pulse Ox 98.1 F 93 H 20 149/82 97 03/19/17 07:54 03/19/17 07:54 03/19/17 07:54 03/19/17 09:51 03/19/17 07:54 - Medications Medications: Current Medications Acetaminophen (Tylenol 325mg Tab) 325 mg PO Q6 PRN PRN Reason: Pain, moderate (4-7) Cinacalcet (Sensipar) 30 mg PO DAILY [facility] Last Admin: 03/19/17 09:51 Dose: 30 mg Isosorbide Mononitrate (Imdur) 30 mg PO DAILY [facility] Last Admin: 03/19/17 09:54 Dose: 30 mg Lisinopril (Zestril) 10 mg PO DAILY [facility] Last Admin: 03/19/17 09:51 Dose: 10 mg Metoprolol Tartrate (Lopressor) 25 mg PO BID [facility] Last Admin: 03/19/17 09:51 Dose: 25 mg Oxycodone/Acetaminophen (Percocet 5/325 Mg Tab) 1 tab PO Q4H PRN PRN Reason: Pain, moderate (4-7) Stop: 03/20/17 22:32 Last Admin: 03/19/17 08:28 Dose: 1 tab Sevelamer Carbonate (Renvela) 2,400 mg PO TIDCC [facility] Last Admin: 03/19/17 09:50 Dose: 2,400 mg - Labs Labs: PT 12.8 SECONDS (9.7-12.2) H 03/17/17 17:45 INR 1.1 03/17/17 17:45 APTT 31 SECONDS (21-34) 03/17/17 17:45 - Constitutional Appears: No Acute Distress - Eye Exam Eye Exam: EOMI, Normal appearance - ENT Exam ENT Exam: Mucous Membranes Moist - Cardiovascular Exam Cardiovascular Exam: REGULAR RHYTHM, +S1, +S2, Murmur (diastolic) - GI/Abdominal Exam GI & Abdominal Exam: Soft, Normal Bowel Sounds. absent: Guarding, Rigid, Tenderness, Organomegaly - Extremities Exam Extremities Exam: Normal Capillary Refill, Pedal Edema. absent: Calf Tenderness Additional comments: increase warmth, no erythemia, inferior knee b/l - Back Exam Back Exam: absent: CVA tenderness (L), CVA tenderness (R) - Neurological Exam Neurological Exam: Alert, Awake, Oriented x3 - Psychiatric Exam Psychiatric exam: Normal Affect, Normal Mood - Skin Skin Exam: Dry, Warm Assessment and Plan - Assessment and Plan (Free Text) Plan: 31 M, Hx non-compliant, cardiomyopathy on ICD, CHF diastolic and systolic, ESRD on HD MWF, asthma, admitted for Patellar tendonitis b/l knees likely secondary to severe secondary hyperparathyroidism. Cardiomyopathy s/p ICD, EF 15%, secondary to HTN Valvular disorder: Severe MR, moderate TR CHF diastolic and systolic - Dilated LV, severe global hypokinesis, EF 30% - pending echo (03/17/17) Elevated BNP and trops - BNP = 112K - trops 0.2 --> 0.2--> 0.18, likely ventricular stretch. No CP Pulm HTN - PASP 55 - may consider RHC: PAH vs Pulm HTN HTN - 149/96, HR 80s - On home isosorbide mononitrate (Imdur) 30, lisinopril 10, lopressor 25 Bid - [ ] get 1 set of vitals s/p dialysis Normocytic anemia, chronic - managed by primary or outpt DVT prophylaxis - discharge home on lovemnox 30mg SQ daily Patellar tendonitis b/l knees with effusion Patellar tendon, proximal laxity suspicious of rupture - knee immobilizer - PT Will S/R/D/w Dr. Skinner <Yair Skinner - Last Filed: 03/19/17 16:36> Objective - Vital Signs/Intake and Output Vital Signs (last 24 hours): Temp Pulse Resp BP Pulse Ox 98.6 F 82 20 151/97 H 97 03/19/17 15:00 03/19/17 15:00 03/19/17 15:00 03/19/17 15:00 03/19/17 15:00 - Medications Medications: Current Medications Acetaminophen (Tylenol 325mg Tab) 325 mg PO Q6 PRN PRN Reason: Pain, moderate (4-7) Cinacalcet (Sensipar) 30 mg PO DAILY [facility] Last Admin: 03/19/17 09:51 Dose: 30 mg Isosorbide Mononitrate (Imdur) 30 mg PO DAILY [facility] Last Admin: 03/19/17 09:54 Dose: 30 mg Lisinopril (Zestril) 10 mg PO DAILY [facility] Last Admin: 03/19/17 09:51 Dose: 10 mg Metoprolol Tartrate (Lopressor) 25 mg PO BID [facility] Last Admin: 03/19/17 09:51 Dose: 25 mg Oxycodone/Acetaminophen (Percocet 5/325 Mg Tab) 1 tab PO Q4H PRN PRN Reason: Pain, moderate (4-7) Stop: 03/20/17 22:32 Last Admin: 03/19/17 15:58 Dose: 1 tab Sevelamer Carbonate (Renvela) 2,400 mg PO TIDCC [facility] Last Admin: 03/19/17 12:00 Dose: Not Given - Labs Labs: 03/19/17 12:04 03/19/17 12:04 PT 12.8 SECONDS (9.7-12.2) H 03/17/17 17:45 INR 1.1 03/17/17 17:45 APTT 31 SECONDS (21-34) 03/17/17 17:45 Assessment and Plan (1) Elevated troponin Status: Acute (2) Patellar tendon rupture Status: Acute (3) Dilated cardiomyopathy Status: Acute (4) ESRD (end stage renal disease) on dialysis Status: Acute Attending/Attestation - Attestation I have personally seen and examined this patient.: Yes I have fully participated in the care of the patient.: Yes I have reviewed all pertinent clinical information, including history, physical exam and plan: Yes Notes (Text): 03/19/17 16:36 Pt stable will have icd checked
[2017-03-19 12:19] LABS: BASO # 0.1 K/uL (0.0-0.2); BASO % 0.8 % (0.0-2.0); EOS # 0.7 K/uL (0.0-0.7); EOS % 7.9 % (0.0-4.0); HEMATOCRIT 26.3 % (35.0-51.0); LYMPH # 1.1 K/uL (1.0-4.3); LYMPH % 11.9 % (20.0-40.0); MEAN CELL VOLUME 90.3 fL (80.0-94.0); MEAN CORPUSCULAR HEMOGLOBIN 30.3 pg (27.0-31.0); MEAN CORPUSCULAR HGB CONC 33.6 g/dL (33.0-37.0); MEAN PLATELET VOLUME 8.1 fL (7.2-11.7); MONO # 0.8 K/uL (0.0-0.8); MONO % 9.1 % (0.0-10.0); NRBC % 0.1 % (0.0-2.0); RED CELL DISTRIBUTION WIDTH 17.1 % (11.5-14.5); WHITE BLOOD COUNT 8.9 K/uL (4.8-10.8)
[2017-03-19 12:20] LABS: POTASSIUM 4.6 mmol/L (3.6-5.2)
[2017-03-19 12:22] LABS: PHOSPHOROUS 7.4 mg/dL (2.5-4.5); TOTAL PROTEIN 7.1 g/dL (6.3-8.3)
[2017-03-19 12:23] LABS: CALCIUM 9.6 mg/dl (8.6-10.4); MAGNESIUM 2.4 mg/dL (1.6-2.3)
[2017-03-19 12:59] LABS: THYROID STIMULATING HORMONE 4.38 mIU/L (0.46-4.68)
--- NOTE | 2017-03-19 13:42 | CP.PCM.PN ---
Subjective - Date & Time of Evaluation Date of Evaluation: 03/19/17 Time of Evaluation: 13:39 - Subjective Subjective: afebrile PAIN BOTH KNEES CARDIAC STATUS STABLE ECHO : EF 35-40% RVE , SEVERE PULM HTN , MOD MR , LAR , LV FILLING WV UP , CT KNEES SHOWS HEMARTHROSIS . ORTHO REC LEVONEX ? BRI Objective - Vital Signs/Intake and Output Vital Signs (last 24 hours): Temp Pulse Resp BP Pulse Ox 98.3 F 82 17 153/83 H 96 03/19/17 11:30 03/19/17 12:30 03/19/17 12:30 03/19/17 12:30 03/19/17 12:30 - Medications Medications: Current Medications Acetaminophen (Tylenol 325mg Tab) 325 mg PO Q6 PRN PRN Reason: Pain, moderate (4-7) Cinacalcet (Sensipar) 30 mg PO DAILY [facility] Last Admin: 03/19/17 09:51 Dose: 30 mg Isosorbide Mononitrate (Imdur) 30 mg PO DAILY [facility] Last Admin: 03/19/17 09:54 Dose: 30 mg Lisinopril (Zestril) 10 mg PO DAILY [facility] Last Admin: 03/19/17 09:51 Dose: 10 mg Metoprolol Tartrate (Lopressor) 25 mg PO BID [facility] Last Admin: 03/19/17 09:51 Dose: 25 mg Oxycodone/Acetaminophen (Percocet 5/325 Mg Tab) 1 tab PO Q4H PRN PRN Reason: Pain, moderate (4-7) Stop: 03/20/17 22:32 Last Admin: 03/19/17 08:28 Dose: 1 tab Sevelamer Carbonate (Renvela) 2,400 mg PO TIDCC [facility] Last Admin: 03/19/17 09:50 Dose: 2,400 mg - Labs Labs: 03/19/17 12:04 03/19/17 12:04 PT 12.8 SECONDS (9.7-12.2) H 03/17/17 17:45 INR 1.1 03/17/17 17:45 APTT 31 SECONDS (21-34) 03/17/17 17:45
[2017-03-20] MEDS: Oxycodone/Acetaminophen 5/325 mg Tab PO PRN ×5 (01:26→22:06)
--- NOTE | 2017-03-20 06:50 | CP.PCM.PN ---
Subjective - Date & Time of Evaluation Date of Evaluation: 03/19/17 Time of Evaluation: 15:00 - Subjective Subjective: SEEN ON RENAL F/U RECIEVED HIS HD EARLIER .. TOLERATED WELL ALL PREVIOUS EMR REVIEWED WAS SEEN BY DR TRIPLETT ON RENAL CONSULTATION YESTERDAY Objective - Vital Signs/Intake and Output Vital Signs (last 24 hours): Temp Pulse Resp BP Pulse Ox 99.4 F 83 20 158/99 H 97 03/19/17 23:20 03/20/17 04:25 03/19/17 23:20 03/19/17 23:20 03/19/17 23:20 - Medications Medications: Current Medications Acetaminophen (Tylenol 325mg Tab) 325 mg PO Q6 PRN PRN Reason: Pain, moderate (4-7) Cinacalcet (Sensipar) 30 mg PO DAILY REPLACED BY [facility] Last Admin: 03/19/17 09:51 Dose: 30 mg Isosorbide Mononitrate (Imdur) 30 mg PO DAILY REPLACED BY [facility] Last Admin: 03/19/17 09:54 Dose: 30 mg Lisinopril (Zestril) 10 mg PO DAILY REPLACED BY [facility] Last Admin: 03/19/17 09:51 Dose: 10 mg Metoprolol Tartrate (Lopressor) 25 mg PO BID REPLACED BY [facility] Last Admin: 03/19/17 17:46 Dose: 25 mg Oxycodone/Acetaminophen (Percocet 5/325 Mg Tab) 1 tab PO Q4H PRN PRN Reason: Pain, moderate (4-7) Stop: 03/20/17 22:32 Last Admin: 03/20/17 05:25 Dose: 1 tab Sevelamer Carbonate (Renvela) 2,400 mg PO TIDCC REPLACED BY [facility] Last Admin: 03/19/17 17:45 Dose: 2,400 mg - Labs Labs: 03/19/17 12:04 03/19/17 12:04 PT 12.8 SECONDS (9.7-12.2) H 03/17/17 17:45 INR 1.1 03/17/17 17:45 APTT 31 SECONDS (21-34) 03/17/17 17:45 Assessment and Plan - Assessment and Plan (Free Text) Assessment: ESRD ON HD M W F ANEMIA OF CKD .. ON EPO MULTIPLE CO MORBIDITIES P : C/O CURRENT CARE
--- NOTE | 2017-03-20 08:15 | CP.PCM.PN ---
Subjective - Date & Time of Evaluation Date of Evaluation: 03/20/17 Time of Evaluation: 08:12 - Subjective Subjective: Patient states knee pain is controlled. Denies CP/SOB/dizziness. Denies numbness /tingling. Objective - Vital Signs/Intake and Output Vital Signs (last 24 hours): Temp Pulse Resp BP Pulse Ox 98.7 F 92 H 20 116/77 100 03/20/17 07:45 03/20/17 07:45 03/20/17 07:45 03/20/17 07:45 03/20/17 07:45 Intake and Output: 03/20/17 03/20/17 06:59 18:59 Intake Total 240 Balance 240 - Medications Medications: Current Medications Acetaminophen (Tylenol 325mg Tab) 325 mg PO Q6 PRN PRN Reason: Pain, moderate (4-7) Cinacalcet (Sensipar) 30 mg PO DAILY [facility] Last Admin: 03/19/17 09:51 Dose: 30 mg Isosorbide Mononitrate (Imdur) 30 mg PO DAILY [facility] Last Admin: 03/19/17 09:54 Dose: 30 mg Lisinopril (Zestril) 10 mg PO DAILY [facility] Last Admin: 03/19/17 09:51 Dose: 10 mg Metoprolol Tartrate (Lopressor) 25 mg PO BID [facility] Last Admin: 03/19/17 17:46 Dose: 25 mg Oxycodone/Acetaminophen (Percocet 5/325 Mg Tab) 1 tab PO Q4H PRN PRN Reason: Pain, moderate (4-7) Stop: 03/20/17 22:32 Last Admin: 03/20/17 05:25 Dose: 1 tab Sevelamer Carbonate (Renvela) 2,400 mg PO TIDCC [facility] Last Admin: 03/19/17 17:45 Dose: 2,400 mg - Labs Labs: 03/19/17 12:04 03/19/17 12:04 PT 12.8 SECONDS (9.7-12.2) H 03/17/17 17:45 INR 1.1 03/17/17 17:45 APTT 31 SECONDS (21-34) 03/17/17 17:45 - Extremities Exam Additional comments: +ROM ankle/toes, knee immob intact, calves soft NT neg homans +DP pulses Assessment and Plan (1) Rupture of right patellar tendon Assessment & Plan: plan d/c home and return for OR as outpatient needs clearance for OR Per Dr. Diaz, start lovenox (or heparin) now, to be held 24 hours pre op PT OOB d/w Dr. Diaz, agrees with above Status: Acute (2) Rupture of left patellar tendon Status: Acute
--- NOTE | 2017-03-20 09:45 | CARD ---
APPROVED REPORT EKG Measurement Heart [id number] <Conclusion> Normal sinus rhythm Moderate voltage criteria for LVH, may be normal variant T wave abnormality, consider lateral ischemia Prolonged QT Abnormal ECG
--- NOTE | 2017-03-20 10:21 | CP.PCM.PN ---
<Lino Vee - Last Filed: 03/20/17 10:14> Subjective - Date & Time of Evaluation Date of Evaluation: 03/20/17 Time of Evaluation: 07:45 - Subjective Subjective: Cardiology Progress Note Dr. Skinner Patient seen and examined at the bedside. No acute distress. No issues overnight. Received dialysis yesterday, tolerated well. He states no SOB today , and his chest pain is fully resolved and has not recurred since receiving dialysis. Some persistent knee pain, but well controlled on current regimen. He denies all other cardiovascular complaints this morning. 12 point review of systems was completed and negative except for the above, stated complaints. He is pending ICD interrogation, possibly today. Objective - Vital Signs/Intake and Output Vital Signs (last 24 hours): Temp Pulse Resp BP Pulse Ox 98.7 F 92 H 20 136/80 100 03/20/17 07:45 03/20/17 07:45 03/20/17 07:45 03/20/17 09:07 03/20/17 07:45 Intake and Output: 03/20/17 03/20/17 06:59 18:59 Intake Total 240 Balance 240 - Medications Medications: Current Medications Acetaminophen (Tylenol 325mg Tab) 325 mg PO Q6 PRN PRN Reason: Pain, moderate (4-7) Cinacalcet (Sensipar) 30 mg PO DAILY [facility] Last Admin: 03/20/17 09:08 Dose: 30 mg Isosorbide Mononitrate (Imdur) 30 mg PO DAILY [facility] Last Admin: 03/20/17 09:09 Dose: 30 mg Lisinopril (Zestril) 10 mg PO DAILY [facility] Last Admin: 03/20/17 09:07 Dose: 10 mg Metoprolol Tartrate (Lopressor) 25 mg PO BID [facility] Last Admin: 03/20/17 09:07 Dose: 25 mg Oxycodone/Acetaminophen (Percocet 5/325 Mg Tab) 1 tab PO Q4H PRN PRN Reason: Pain, moderate (4-7) Stop: 03/20/17 22:32 Last Admin: 03/20/17 09:44 Dose: 1 tab Sevelamer Carbonate (Renvela) 2,400 mg PO TIDCC [facility] Last Admin: 03/20/17 09:04 Dose: 2,400 mg - Labs Labs: 03/19/17 12:04 03/19/17 12:04 PT 12.8 SECONDS (9.7-12.2) H 03/17/17 17:45 INR 1.1 03/17/17 17:45 APTT 31 SECONDS (21-34) 03/17/17 17:45 - Constitutional Appears: Well, Non-toxic, No Acute Distress - Head Exam Head Exam: ATRAUMATIC, NORMAL INSPECTION, NORMOCEPHALIC - Eye Exam Eye Exam: EOMI, Normal appearance. absent: Conjunctival injection, Scleral icterus Pupil Exam: absent: Irregular, Unequal - ENT Exam ENT Exam: Mucous Membranes Moist - Neck Exam Neck Exam: Full ROM - Respiratory Exam Respiratory Exam: Clear to Ausculation Bilateral, NORMAL BREATHING PATTERN. absent: Accessory Muscle Use, Chest Wall Tenderness, Decreased Breath Sounds, Rales, Rhonchi, Wheezes - Cardiovascular Exam Cardiovascular Exam: REGULAR RHYTHM, RRR, +S1, +S2, Murmur (holosystolic murmur , most prominent at left 2nd intercostal space). absent: Bradycardia, Tachycardia - GI/Abdominal Exam GI & Abdominal Exam: Soft, Normal Bowel Sounds. absent: Distended, Firm, Rigid , Diminished Bowel Sounds, Hyperactive Bowel Sounds, Hypoactive Bowel Sounds - Extremities Exam Additional comments: Limited exam as wearing immobilizers/casts and SCDs No pedal edema Faintly palpable bilateral dorsalis pedis pulses Warm to palpation No gross erythema, tenderness to palpation, or temperature abnormalities of bilateral feet Left arm AV fisutala for dialysis bandaged, palpable thrill - Back Exam Back Exam: NORMAL INSPECTION. absent: rash noted - Neurological Exam Neurological Exam: Alert, Awake, Oriented x3 - Psychiatric Exam Psychiatric exam: Normal Affect, Normal Mood - Skin Skin Exam: Dry, Intact, Normal Color, Warm Assessment and Plan (1) Elevated troponin Assessment & Plan: EKG 03/17/17: Unusual P axis and short ND, probable junctional tachycardia, Voltage criteria for left ventricular hypertrophy, T wave abnormality, consider lateral ischemia, Prolonged QT, Abnormal ECG EKG 03/18/17: Normal sinus rhythm, Moderate voltage criteria for LVH, may be normal variant, T wave abnormality, consider lateral ischemia, Prolonged QT, Abnormal ECG Echo 09/25/15: LVEF 32%, Dilated LV with severe global hypokinesis, Mod-Severe MR, Mod TR, Mod-Severe Pulm HTN (PASP = 55mmHG) Echo 03/18/17: read pending Trops (admit --> most recent): 0.1920, 0.1980, 0.2170, 0.1850, 0.1970 -ACS vs 2/2 fluid overload causing RV dilation vs Renal leak -Hx of Cardiomyopathy s/p ICD secondary to poorly controlled HTN, EF 15% -Fluid overloaded, 2/2 increased PO intake and ESRD on HD (MWF). -Cardiac stable, hemodynamically stable, No chest pain currently, trops holding steady -Will need to interrogate ICD, possibly today -Continue medical management, HD as per Nephro Status: Acute (2) Chest pain Assessment & Plan: EKG 03/17/17: Unusual P axis and short ND, probable junctional tachycardia, Voltage criteria for left ventricular hypertrophy, T wave abnormality, consider lateral ischemia, Prolonged QT, Abnormal ECG EKG 03/18/17: Normal sinus rhythm, Moderate voltage criteria for LVH, may be normal variant, T wave abnormality, consider lateral ischemia, Prolonged QT, Abnormal ECG Echo 09/25/15: LVEF 32%, Dilated LV with severe global hypokinesis, Mod-Severe MR, Mod TR, Mod-Severe Pulm HTN (PASP = 55mmHG) Echo 03/18/17: read pending Trops (admit --> most recent): 0.1920, 0.1980, 0.2170, 0.1850, 0.1970 -ACS vs RV strain 2/2 fluid overload vs anxiety: resolved -No chest pain on exam today -Hemodynamically stable, cardiac stable, trops holding steady -Continue to monitor Status: Resolved (3) Dilated cardiomyopathy Assessment & Plan: EKG 03/17/17: Unusual P axis and short ND, probable junctional tachycardia, Voltage criteria for left ventricular hypertrophy, T wave abnormality, consider lateral ischemia, Prolonged QT, Abnormal ECG EKG 03/18/17: Normal sinus rhythm, Moderate voltage criteria for LVH, may be normal variant, T wave abnormality, consider lateral ischemia, Prolonged QT, Abnormal ECG Echo 09/25/15: LVEF 32%, Dilated LV with severe global hypokinesis, Mod-Severe MR, Mod TR, Mod-Severe Pulm HTN (PASP = 55mmHG) Echo 03/18/17: read pending Trops (admit --> most recent): 0.1920, 0.1980, 0.2170, 0.1850, 0.1970 -Hx Cardiomyopathy with EF 32% (on last echo, current echo read pending), 2/2 to poorly controlled HTN (pt frequently noted to be non-compliant) -s/p ICD, will likely need to interrogate -continue to medically manage Status: Chronic (4) ESRD (end stage renal disease) on dialysis Assessment & Plan: Trops (admit --> most recent): 0.1920, 0.1980, 0.2170, 0.1850, 0.1970 -HD MWF, continue as per Nephro -elevated trops may be due to renal leak vs RV strain from fluid overload, will continue to monitor s/p dialysis Status: Chronic (5) HTN (hypertension) Assessment & Plan: -Intermittently elevated BPs, improved since HD yesterday -Cardiomyopathy 2/2 poorly controlled HTN, frequently noted to be non-compliant with med regimen and followup -Continue daily Imdur and Lisinopril, BID Metoprolol -continue to monitor Status: Chronic - Assessment and Plan (Free Text) Assessment: Case discussed with Dr. Skinner. <Yair Skinner - Last Filed: 03/20/17 19:46> Objective - Vital Signs/Intake and Output Vital Signs (last 24 hours): Temp Pulse Resp BP Pulse Ox 98.2 F 88 20 133/71 96 03/20/17 15:00 03/20/17 15:00 03/20/17 15:00 03/20/17 17:29 03/20/17 15:00 - Medications Medications: Current Medications Acetaminophen (Tylenol 325mg Tab) 325 mg PO Q6 PRN PRN Reason: Pain, moderate (4-7) Cinacalcet (Sensipar) 30 mg PO DAILY [facility] Last Admin: 03/20/17 09:08 Dose: 30 mg Heparin Sodium (Porcine) (Heparin) 5,000 units SC Q12 [facility] Isosorbide Mononitrate (Imdur) 30 mg PO DAILY [facility] Last Admin: 03/20/17 09:09 Dose: 30 mg Lisinopril (Zestril) 10 mg PO DAILY [facility] Last Admin: 03/20/17 09:07 Dose: 10 mg Metoprolol Tartrate (Lopressor) 25 mg PO BID [facility] Last Admin: 03/20/17 17:29 Dose: 25 mg Oxycodone/Acetaminophen (Percocet 5/325 Mg Tab) 1 tab PO Q4H PRN PRN Reason: Pain, moderate (4-7) Stop: 03/20/17 22:32 Last Admin: 03/20/17 15:50 Dose: 1 tab Sevelamer Carbonate (Renvela) 2,400 mg PO TIDCC [facility] Last Admin: 03/20/17 17:29 Dose: 2,400 mg - Labs Labs: 03/19/17 12:04 03/19/17 12:04 PT 12.8 SECONDS (9.7-12.2) H 03/17/17 17:45 INR 1.1 03/17/17 17:45 APTT 31 SECONDS (21-34) 03/17/17 17:45 Assessment and Plan (1) Elevated troponin Status: Acute (2) Patellar tendon rupture Status: Acute (3) Dilated cardiomyopathy Status: Chronic (4) ESRD (end stage renal disease) on dialysis Status: Chronic Attending/Attestation - Attestation I have personally seen and examined this patient.: Yes I have fully participated in the care of the patient.: Yes I have reviewed all pertinent clinical information, including history, physical exam and plan: Yes Notes (Text): 03/20/17 19:45 d/c with follow up discussed Dana kirby
--- NOTE | 2017-03-20 10:31 | CARD ---
APPROVED REPORT EXAM: Two-dimensional and M-mode echocardiogram with Doppler and color Doppler. Other Information Quality : GoodRhythm : NSR INDICATION Cardiomyopathy DEFI RISK FACTORS Hypertension M-Mode DIMENSIONS RVDd2.11 (2.1-3.2cm)Left Atrium (MM)4.49 (2.5-4.0cm) IVSd1.05 (0.7-1.1cm)Aortic Root3.36 (2.2-3.7cm) LVDd7.85 (4.0-5.6cm)Aortic Cusp Exc.2.50 (1.5-2.0cm) PWd1.25 (0.7-1.1cm)FS (%) 25 % LVDs5.90 (2.0-3.8cm)LVEF (%)48 (>50%) Mitral Valve MV E Ljpmlodi880.3cm/sMV A Elxognlr520.2cm/sE/A ratio1.2 TDI E/Lateral E'0.0E/Medial E'0.0 Tricuspid Valve TR Peak Lqgiiwxf513yw/sTR Peak Gr.40gwHrEJLI48mzOs <Conclusion> Left ventricle: thickness: normal; size: dilated; overall ejection fraction:25%: diastolic filling pressures: elevated; no definitive evidence of an intraluminal thrombus ; suggest contrast studies Mitral valve: annulus: normal: leaflets: mild calcification: excursion: normal; no significant trans-mitral gradient: mild incompetence: left atrium: dilated Aortic valve: leaflets:calcific thickening: excursion: normal; no significant trans-aortic gradient: No significant incompetence: aortic root: normal Right sided Structures: ICD lead noted Pulmonary valve: normal; no significant incompetence; Tricuspid valve: normal;moderate incompetence: Intra-cardiac hemodynamics: pulmonary systolic pressures: 80mmHg; central venous pressures: normal No pericardial effusion
--- NOTE | 2017-03-20 13:19 | CP.PCM.DIS ---
Provider - Provider Date of Admission: 03/17/17 19:43 Attending physician: Aravind Parr MD Time Spent in preparation of Discharge (in minutes): 35 Hospital Course - Lab Results Lab Results: Most Recent Lab Values WBC 8.9 K/uL (4.8-10.8) 03/19/17 12:04 RBC 2.92 Mil/uL (4.40-5.90) L 03/19/17 12:04 Hgb 8.8 g/dL (12.0-18.0) L 03/19/17 12:04 Hct 26.3 % (35.0-51.0) L 03/19/17 12:04 MCV 90.3 fL (80.0-94.0) 03/19/17 12:04 MCH 30.3 pg (27.0-31.0) 03/19/17 12:04 MCHC 33.6 g/dL (33.0-37.0) 03/19/17 12:04 RDW 17.1 % (11.5-14.5) H 03/19/17 12:04 Plt Count 209 K/uL (130-400) 03/19/17 12:04 MPV 8.1 fL (7.2-11.7) 03/19/17 12:04 Neut % (Auto) 70.3 % (50.0-75.0) 03/19/17 12:04 Lymph % (Auto) 11.9 % (20.0-40.0) L 03/19/17 12:04 [place] % (Auto) 9.1 % (0.0-10.0) 03/19/17 12:04 Eos % (Auto) 7.9 % (0.0-4.0) H 03/19/17 12:04 Baso % (Auto) 0.8 % (0.0-2.0) 03/19/17 12:04 Neut # 6.3 K/uL (1.8-7.0) 03/19/17 12:04 Lymph # 1.1 K/uL (1.0-4.3) 03/19/17 12:04 [place] # 0.8 K/uL (0.0-0.8) 03/19/17 12:04 Eos # 0.7 K/uL (0.0-0.7) 03/19/17 12:04 Baso # 0.1 K/uL (0.0-0.2) 03/19/17 12:04 PT 12.8 SECONDS (9.7-12.2) H 03/17/17 17:45 INR 1.1 03/17/17 17:45 APTT 31 SECONDS (21-34) 03/17/17 17:45 Sodium 132 mmol/L (132-148) 03/19/17 12:04 Potassium 4.6 mmol/L (3.6-5.2) 03/19/17 12:04 Chloride 86 mmol/L (98-107) L 03/19/17 12:04 Carbon Dioxide 27 mmol/L (22-30) 03/19/17 12:04 Anion Gap 23 (10-20) H 03/19/17 12:04 BUN 86 mg/dL (9-20) H 03/19/17 12:04 Creatinine 15.2 MG/DL (0.8-1.5) H* D 03/19/17 12:04 Est GFR ( Amer) 5 03/19/17 12:04 Est GFR (Non-Af Amer) 4 03/19/17 12:04 Random Glucose 87 mg/dL (75-110) 03/19/17 12:04 Calcium 9.6 mg/dl (8.6-10.4) 03/19/17 12:04 Phosphorus 7.4 mg/dL (2.5-4.5) H 03/19/17 12:04 Magnesium 2.4 mg/dL (1.6-2.3) H 03/19/17 12:04 Total Bilirubin 1.0 mg/dL (0.2-1.3) 03/19/17 12:04 AST 16 U/L (17-59) L D 03/19/17 12:04 ALT 18 U/L (21-72) L 03/19/17 12:04 Alkaline Phosphatase 611 U/L (38-126) H 03/19/17 12:04 Total Creatine Kinase 173 U/L (55-170) H 03/19/17 12:04 CK-MB (Mass) 0.63 ng/mL (0.0-3.38) 03/19/17 12:04 Troponin I 0.1920 ng/mL (0.00-0.120) H* 03/17/17 17:45 Troponin I, Quant 0.1970 ng/mL (0.00-0.120) H* 03/19/17 12:04 NT-Pro-B Natriuret Pep 75395 pg/mL (0-450) H 03/19/17 12:04 Total Protein 7.1 g/dL (6.3-8.3) 03/19/17 12:04 Albumin 3.6 g/dL (3.5-5.0) 03/19/17 12:04 Globulin 3.5 gm/dL (2.2-3.9) 03/19/17 12:04 Albumin/Globulin Ratio 1.0 (1.0-2.1) 03/19/17 12:04 TSH 3rd Generation 4.38 mIU/L (0.46-4.68) 03/19/17 12:04 Alcohol, Quantitative < 10 mg/dl (0-10) 03/17/17 17:45 - Hospital Course Hospital Course: PT. ADMITTED WITH JARRETT PATELLAR TENDON RUPTURE PT STATES THAT HE TRIED TO GET UP FROM CHAIR AND HEARD A POP: SOUND AND NOTICED SEVERE PAIN AND SWELLING OF BOTH KNEES . PT WAS EVALUATED IN ER AND HAS JARRETT PATELLAR LIG. TEAR. PT IS HAS NOT TAKE ANY AB, QUINILONES RECENT OR PAST PT HAD BORDERLINE TNI POS PAST HIST. HAS END STAGE CARDIOMYOPATHY WITH EF 15% SEC TO HTN. RENAL FAILURE ON HD , AICD NO DM ORTHO AND EP CARD WAS CONSULTED ORTHO : D/C PT ON ANTICOAGULATION AND OR NEXT WEEK PT REFUSED REHAB. FAMILY PRESENT THERE WAS STILL A QUESTION OF ANTICOAGULATION IN PRESENTENCE OF CT REPORT OF HEMARTHROSIS ADDENDUM PT WAS DISCHARGE NEXT DAY 03/21 DUE TO FAMILY ISSUES Discharge Exam - Head Exam Head Exam: ATRAUMATIC, NORMAL INSPECTION, NORMOCEPHALIC Discharge Plan - Discharge Medications Prescriptions: Syringe W-Needle,Disposab,3 ml [Easy Touch] 1 each MC BID #20 disp.syrin Heparin 5,000 units SC Q12 #20 vial - Follow Up Plan Condition: GOOD Disposition: HOME/ ROUTINE Instructions: Heparin (By injection), Heart Failure (DC), Crutch Instructions ( DC), Dialysis Diet (DC), End Stage Kidney Disease (DC), Tendon Rupture (GEN) Additional Instructions: f/u with DR. Strange office ( scheduled OR on 03/26/17) confirm OR schedule - continue HD as scheduled stop taking heparin 24 hrs before surgrery - other instructions as per Dr. Diaz Resume all other home medication Referrals: Gilda Diaz MD [Staff Provider] - Aravind Parr MD [Staff Provider] -
--- NOTE | 2017-03-20 22:12 | CP.PCM.PN ---
Subjective - Date & Time of Evaluation Date of Evaluation: 03/20/17 Time of Evaluation: 14:00 - Subjective Subjective: SEEN ON RENAL F/U HD ON M W F FEELS BETTER Objective - Vital Signs/Intake and Output Vital Signs (last 24 hours): Temp Pulse Resp BP Pulse Ox 98.2 F 88 20 133/71 96 03/20/17 15:00 03/20/17 15:00 03/20/17 15:00 03/20/17 17:29 03/20/17 15:00 - Medications Medications: Current Medications Acetaminophen (Tylenol 325mg Tab) 325 mg PO Q6 PRN PRN Reason: Pain, moderate (4-7) Cinacalcet (Sensipar) 30 mg PO DAILY [facility] Last Admin: 03/20/17 09:08 Dose: 30 mg Heparin Sodium (Porcine) (Heparin) 5,000 units SC Q12 [facility] Last Admin: 03/20/17 21:18 Dose: 5,000 units Isosorbide Mononitrate (Imdur) 30 mg PO DAILY [facility] Last Admin: 03/20/17 09:09 Dose: 30 mg Lisinopril (Zestril) 10 mg PO DAILY [facility] Last Admin: 03/20/17 09:07 Dose: 10 mg Metoprolol Tartrate (Lopressor) 25 mg PO BID [facility] Last Admin: 03/20/17 17:29 Dose: 25 mg Oxycodone/Acetaminophen (Percocet 5/325 Mg Tab) 1 tab PO Q4H PRN PRN Reason: Pain, moderate (4-7) Stop: 03/20/17 22:32 Last Admin: 03/20/17 22:06 Dose: 1 tab Sevelamer Carbonate (Renvela) 2,400 mg PO TIDCC [facility] Last Admin: 03/20/17 17:29 Dose: 2,400 mg - Labs Labs: 03/19/17 12:04 03/19/17 12:04 PT 12.8 SECONDS (9.7-12.2) H 03/17/17 17:45 INR 1.1 03/17/17 17:45 APTT 31 SECONDS (21-34) 03/17/17 17:45 Assessment and Plan - Assessment and Plan (Free Text) Assessment: ESRD ON HD M W F ANEMIA OF CKD .. H/H STABLE C/O CURRENT CARE
[2017-03-21] MEDS ORDERED: Oxycodone/Acetaminophen 5/325 mg Tab PO STA (03:13)
--- NOTE | 2017-03-21 07:24 | CP.PCM.PN ---
Subjective - Date & Time of Evaluation Date of Evaluation: 03/21/17 Time of Evaluation: 07:18 - Subjective Subjective: Patient states pain is well controlled B legs. Denies CP/SOB/dizziness. He says he has made arrangements to stay at mother's house, as she has ramp and lives on first floor. Objective - Vital Signs/Intake and Output Vital Signs (last 24 hours): Temp Pulse Resp BP Pulse Ox 98.7 F 88 20 141/88 98 03/20/17 23:20 03/21/17 03:30 03/20/17 23:20 03/20/17 23:20 03/20/17 23:20 - Medications Medications: Current Medications Acetaminophen (Tylenol 325mg Tab) 325 mg PO Q6 PRN PRN Reason: Pain, moderate (4-7) Cinacalcet (Sensipar) 30 mg PO DAILY [facility] Last Admin: 03/20/17 09:08 Dose: 30 mg Heparin Sodium (Porcine) (Heparin) 5,000 units SC Q12 [facility] Last Admin: 03/20/17 21:18 Dose: 5,000 units Isosorbide Mononitrate (Imdur) 30 mg PO DAILY [facility] Last Admin: 03/20/17 09:09 Dose: 30 mg Lisinopril (Zestril) 10 mg PO DAILY [facility] Last Admin: 03/20/17 09:07 Dose: 10 mg Metoprolol Tartrate (Lopressor) 25 mg PO BID [facility] Last Admin: 03/20/17 17:29 Dose: 25 mg Sevelamer Carbonate (Renvela) 2,400 mg PO TIDCC [facility] Last Admin: 03/20/17 17:29 Dose: 2,400 mg - Labs Labs: 03/19/17 12:04 03/19/17 12:04 PT 12.8 SECONDS (9.7-12.2) H 03/17/17 17:45 INR 1.1 03/17/17 17:45 APTT 31 SECONDS (21-34) 03/17/17 17:45 - Extremities Exam Additional comments: BLE: +DP pulses, calves soft NT neg homans, noted swelling to B knees, no change. Sensation intact. +ROM ankle/toes Assessment and Plan (1) Rupture of right patellar tendon Assessment & Plan: Plan surgical repair of B patellar tendon ruptures as outpatient per Dr. Diaz cardiology noted, AICD interrogation medical clearance for OR plan d/c home and return as outpatient for surgery 03/[address] Diaz knee immob at all times PT crutches ice elevation ortho stable for d/c VTE proph on heparin, to continue until 24 hours pre op there is expected hemarthrosis from tendon ruptures, however patient at increased risk of DVT from swelling and immobility, and therefore prophylaxis indicated per Dr. Diaz Status: Acute (2) Rupture of left patellar tendon Assessment & Plan: see above Status: Acute
[2017-03-21] MEDS: Oxycodone/Acetaminophen 5/325 mg Tab PO PRN ×2 (07:53→16:38)
--- NOTE | 2017-03-21 08:32 | CP.PCM.PN ---
<Cheryl Miner - Last Filed: 03/21/17 10:44> Subjective - Date & Time of Evaluation Date of Evaluation: 03/21/17 Time of Evaluation: 08:31 - Subjective Subjective: PGY-[address] Skinner Pt seen and examined. No acute complaint per 10 point review. Objective - Vital Signs/Intake and Output Vital Signs (last 24 hours): Temp Pulse Resp BP Pulse Ox 98.4 F 90 20 152/96 H 97 03/21/17 07:00 03/21/17 07:15 03/21/17 07:00 03/21/17 07:00 03/21/17 07:00 - Medications Medications: Current Medications Acetaminophen (Tylenol 325mg Tab) 325 mg PO Q6 PRN PRN Reason: Pain, moderate (4-7) Cinacalcet (Sensipar) 30 mg PO DAILY [facility] Last Admin: 03/20/17 09:08 Dose: 30 mg Heparin Sodium (Porcine) (Heparin) 5,000 units SC Q12 [facility] Last Admin: 03/20/17 21:18 Dose: 5,000 units Isosorbide Mononitrate (Imdur) 30 mg PO DAILY [facility] Last Admin: 03/20/17 09:09 Dose: 30 mg Lisinopril (Zestril) 10 mg PO DAILY [facility] Last Admin: 03/20/17 09:07 Dose: 10 mg Metoprolol Tartrate (Lopressor) 25 mg PO BID [facility] Last Admin: 03/20/17 17:29 Dose: 25 mg Oxycodone/Acetaminophen (Percocet 5/325 Mg Tab) 1 tab PO Q6H PRN PRN Reason: Pain, Mild (1-3) Stop: 03/24/17 07:19 Last Admin: 03/21/17 07:53 Dose: 1 tab Sevelamer Carbonate (Renvela) 2,400 mg PO TIDCC [facility] Last Admin: 03/21/17 07:55 Dose: 2,400 mg - Labs Labs: 03/19/17 12:04 03/19/17 12:04 PT 12.8 SECONDS (9.7-12.2) H 03/17/17 17:45 INR 1.1 03/17/17 17:45 APTT 31 SECONDS (21-34) 03/17/17 17:45 - Constitutional Appears: No Acute Distress - Head Exam Head Exam: ATRAUMATIC, NORMOCEPHALIC - Eye Exam Eye Exam: EOMI, Normal appearance - ENT Exam ENT Exam: Mucous Membranes Moist - Neck Exam Neck Exam: absent: Meningismus - Respiratory Exam Respiratory Exam: Clear to Ausculation Bilateral, NORMAL BREATHING PATTERN. absent: Rales, Rhonchi, Wheezes - Cardiovascular Exam Cardiovascular Exam: REGULAR RHYTHM, +S1, +S2. absent: Murmur - GI/Abdominal Exam GI & Abdominal Exam: Soft, Normal Bowel Sounds. absent: Tenderness - Extremities Exam Extremities Exam: Normal Capillary Refill, Pedal Edema (On knee binders, slight edema) - Neurological Exam Neurological Exam: Alert, Awake, Oriented x3 - Psychiatric Exam Psychiatric exam: Normal Affect, Normal Mood - Skin Skin Exam: Dry, Warm Assessment and Plan - Assessment and Plan (Free Text) Plan: 31 M, Hx non-compliant, cardiomyopathy on ICD, CHF diastolic and systolic, ESRD on HD MWF, asthma, admitted for Patellar tendonitis b/l knees likely secondary to severe secondary hyperparathyroidism. 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 Function probably. Magnet safe for surgery - Hx Cardiomyopathy with EF 25%, 2/2 to poorly controlled HTN (pt frequently noted to be non-compliant) - continue to medically manage - d/c with follow up discussed Dana as 2nd opnion Pulm HTN - PASP 55 - may consider RHC: PAH vs Pulm HTN Elevated troponin - resolved Atypical chest pain - resolved - Trops (admit --> most recent): 0.1920, 0.1980, 0.2170, 0.1850, 0.1970 - ACS vs 2/2 fluid overload causing RV dilation vs Renal leak - Fluid overloaded, 2/2 increased PO intake and ESRD on HD (MWF). - Continue medical management, HD as per Nephro ESRD (end stage renal disease) on dialysis -HD MWF, continue as per Nephro HTN (hypertension) -Intermittently elevated BPs, improved since HD yesterday -Continue daily Imdur and Lisinopril, BID Metoprolol DVT prophylasix - Called primary team Dr. Parr on 03/21/15. Primary team has plan to send pt home on heparin, management Disposition - Outpt b/l knee tenden repair next week - Continue outpt DVT prophylasix - follow up with Dr. Skinner in 1-2 weeks Imaging: EKG 03/17/17: Unusual P axis and short MD, probable junctional tachycardia, Voltage criteria for left ventricular hypertrophy, T wave abnormality, consider lateral ischemia, Prolonged QT, Abnormal ECG EKG 03/18/17: Normal sinus rhythm, Moderate voltage criteria for LVH, may be normal variant, T wave abnormality, consider lateral ischemia, Prolonged QT, Abnormal ECG Echo 09/25/15: LVEF 32%, Dilated LV with severe global hypokinesis, Mod-Severe MR, Mod TR, Mod-Severe Pulm HTN (PASP = 55mmHG) Echo 03/18/17: EF 25%, diastolic filling pressure elevated; L atrium dilated. Pulm systolic pressure 80 mmHg S/R/D/w Dr. Skinner <Yair Skinner - Last Filed: 03/21/17 14:53> Objective - Vital Signs/Intake and Output Vital Signs (last 24 hours): Temp Pulse Resp BP Pulse Ox 97.9 F 90 16 138/78 98 03/21/17 12:17 03/21/17 12:17 03/21/17 12:17 03/21/17 12:59 03/21/17 12:17 - Medications Medications: Current Medications Acetaminophen (Tylenol 325mg Tab) 325 mg PO Q6 PRN PRN Reason: Pain, moderate (4-7) Cinacalcet (Sensipar) 30 mg PO DAILY [facility] Last Admin: 03/21/17 12:54 Dose: 30 mg Epoetin Stephen (Procrit) 10,000 unit IV [facility] Stop: 04/02/17 09:01 Last Admin: 03/21/17 11:30 Dose: 10,000 unit Heparin Sodium (Porcine) (Heparin) 5,000 units SC Q12 [facility] Last Admin: 03/21/17 10:00 Dose: Not Given Isosorbide Mononitrate (Imdur) 30 mg PO DAILY [facility] Last Admin: 03/21/17 12:59 Dose: 30 mg Lisinopril (Zestril) 10 mg PO DAILY [facility] Last Admin: 03/21/17 12:54 Dose: 10 mg Metoprolol Tartrate (Lopressor) 25 mg PO BID [facility] Last Admin: 03/21/17 12:59 Dose: 25 mg Oxycodone/Acetaminophen (Percocet 5/325 Mg Tab) 1 tab PO Q6H PRN PRN Reason: Pain, Mild (1-3) Stop: 03/24/17 07:19 Last Admin: 03/21/17 07:53 Dose: 1 tab Sevelamer Carbonate (Renvela) 2,400 mg PO TIDCC [facility] Last Admin: 03/21/17 12:54 Dose: 2,400 mg - Labs Labs: 03/19/17 12:04 03/19/17 12:04 PT 12.8 SECONDS (9.7-12.2) H 03/17/17 17:45 INR 1.1 03/17/17 17:45 APTT 31 SECONDS (21-34) 03/17/17 17:45 Assessment and Plan (1) Elevated troponin Status: Acute (2) Patellar tendon rupture Status: Acute (3) Dilated cardiomyopathy Status: Chronic (4) ESRD (end stage renal disease) on dialysis Status: Chronic Attending/Attestation - Attestation I have personally seen and examined this patient.: Yes I have fully participated in the care of the patient.: Yes I have reviewed all pertinent clinical information, including history, physical exam and plan: Yes Notes (Text): 03/21/17 14:52 Pt waiting for wheelchair will follow up as outpt
[2017-03-21] MEDS ORDERED: Epoetin Alfa 10,000 unit/ml Dialysis IV SCH (11:00)
[2017-03-21 12:19] VITALS: O2SAT 98
[2017-03-21 15:46] VITALS: RESP 20; TEMP 99.2
--- NOTE | 2017-03-21 17:05 | CP.PCM.PN ---
Subjective - Date & Time of Evaluation Date of Evaluation: 03/21/17 Time of Evaluation: 13:00 - Subjective Subjective: Pt seen today, states pain improved on B/l legs. Denies CP/SOB/dizziness. He states he is ready to go home today ,says he has made arrangements to stay at mother's house, PT seen today and safe gait training demonstrated by patient orthopedic seen today and cleared patient for discharge from ortho stand point with f/u with DR. Strange office ( scheduled OR on 03/26/17) confirm OR schedule - continue HD as scheduled stop taking heparin 24 hrs before surgery - other instructions as per Dr. Diaz Objective - Vital Signs/Intake and Output Vital Signs (last 24 hours): Temp Pulse Resp BP Pulse Ox 99.2 F 93 H 20 135/78 98 03/21/17 15:41 03/21/17 16:59 03/21/17 16:59 03/21/17 17:00 03/21/17 15:41 - Medications Medications: Current Medications Acetaminophen (Tylenol 325mg Tab) 325 mg PO Q6 PRN PRN Reason: Pain, moderate (4-7) Cinacalcet (Sensipar) 30 mg PO DAILY [facility] Last Admin: 03/21/17 12:54 Dose: 30 mg Epoetin Stephen (Procrit) 10,000 unit IV MWF [facility] Stop: 04/02/17 09:01 Last Admin: 03/21/17 11:30 Dose: 10,000 unit Heparin Sodium (Porcine) (Heparin) 5,000 units SC Q12 [facility] Last Admin: 03/21/17 16:59 Dose: 5,000 units Isosorbide Mononitrate (Imdur) 30 mg PO DAILY [facility] Last Admin: 03/21/17 12:59 Dose: 30 mg Lisinopril (Zestril) 10 mg PO DAILY [facility] Last Admin: 03/21/17 12:54 Dose: 10 mg Metoprolol Tartrate (Lopressor) 25 mg PO BID [facility] Last Admin: 03/21/17 17:00 Dose: 25 mg Oxycodone/Acetaminophen (Percocet 5/325 Mg Tab) 1 tab PO Q6H PRN PRN Reason: Pain, Mild (1-3) Stop: 03/24/17 07:19 Last Admin: 03/21/17 16:38 Dose: 1 tab Sevelamer Carbonate (Renvela) 2,400 mg PO TIDCC [facility] Last Admin: 03/21/17 16:59 Dose: 2,400 mg - Labs Labs: 03/19/17 12:04 03/19/17 12:04 PT 12.8 SECONDS (9.7-12.2) H 03/17/17 17:45 INR 1.1 03/17/17 17:45 APTT 31 SECONDS (21-34) 03/17/17 17:45 Assessment and Plan - Assessment and Plan (Free Text) Assessment: 31 yr old male admitted for B/L patellar tendon ruptures seen by orthopedics today ,Plan surgical repair of B patellar tendon ruptures as outpatient per Dr. Diaz and stable for discharge from othro standpoint and return as outpatient for surgery 03/[address] Diaz knee immob at all times Discharge plan discussed with Dr. Parr, cleared for discharge home today and call Dr. Diaz office for schedule OR Discharge plan discussed with patient who understands and agrees with plan continue HD as scheduled stop taking heparin 24 hrs before surgery - other instructions as per Dr. Diaz
--- NOTE | 2017-03-21 17:41 | PCM.HF ---
Heart Failure Core Measure - Heart Failure Ejection Fraction: Less Than 40 % HAKEEM Inhibitor Prescribed: Yes Beta-Sai Prescribed: Metoprolol Succinate Angiotensin II Receptor Sai Prescribed: No Contraindication/Reason for not providing: on HAKEEM AnticoagulationTherapy for Atrial Fibrillation/Atrialflutter: Yes Aldosterone Antagonist Prescribed: No Contraindication/Reason for not providing: risk for hyperkalemia Hydralazine Nitrate Prescribed: No Contraindication/Reason for not providing: on imudur Implantable Cardioverter Defibrillator Therapy: Yes Cardiac Resynchronization Therapy Prescribed: No Contraindication/Reason for not providing: pt has ICD - Follow up Will be discharged to: Home Follow Up Date (must be within 7 days from discharge): 03/26/17 Follow Up Time: 09:00
[2017-03-21 19:52] VITALS: BP 138/89; PULSE 90
--- NOTE | 2017-03-22 15:05 | CARD ---
APPROVED REPORT EKG Measurement Heart [id number] <Conclusion> Unusual P axis and short NE, probable junctional tachycardia Voltage criteria for left ventricular hypertrophy T wave abnormality, consider lateral ischemia Prolonged QT Abnormal ECG
== END 2017-03-21 18:30 | disposition home or self-care (01) | DRG 557 ==
LOC: C.ER 17:02 → C.9E 19:43 → C.6T 19:43
PROVIDERS: ADMIT Internal Medicine Cardiovascular Disease; ATTEND Internal Medicine Cardiovascular Disease
PROC: 5A1D60Z (ICD-10-PCS; principal; 2017-03-17)
DX: M66.862 Spontaneous rupture of other tendons, left lower leg (principal); N18.6 End stage renal disease; I13.2 Hypertensive heart and chronic kidney disease with heart failure and with stage 5 chronic kidney disease, or end stage renal disease; I42.0 Dilated cardiomyopathy; N25.81 Secondary hyperparathyroidism of renal origin; I27.2 Other secondary pulmonary hypertension; M25.061 Hemarthrosis, right knee; M25.062 Hemarthrosis, left knee; I50.40 Unspecified combined systolic (congestive) and diastolic (congestive) heart failure; M85.861 Other specified disorders of bone density and structure, right lower leg; M66.861 Spontaneous rupture of other tendons, right lower leg; M85.862 Other specified disorders of bone density and structure, left lower leg; R74.8 Abnormal levels of other serum enzymes; Z95.810 Presence of automatic (implantable) cardiac defibrillator; J45.909 Unspecified asthma, uncomplicated; Z83.3 Family history of diabetes mellitus; Z84.1 Family history of disorders of kidney and ureter; D63.1 Anemia in chronic kidney disease; Z82.49 Family history of ischemic heart disease and other diseases of the circulatory system; Z99.2 Dependence on renal dialysis

== ENCOUNTER 2017-03-27 05:52 | Observation (INO) | payer MEDICARE, OTHER ==
[2017-03-27 05:52] VITALS: BMI 33.9
--- NOTE | 2017-03-27 07:29 | C.PDOC ---
History Of Present Illness 31 y/o male presents to the ED with complains of left knee pain and swelling. Pt is on dialysis, MWF, missed appointment yesterday and scheduled again today at 0900 in [place]. Pt states pain to left knee was too severe this morning and called EMS. Pt states was diagnosed with bilateral patella tendon ruptures 4 -5 days ago, admitted and discharged with scheduled outpatient surgery next week with Dr Diaz. When discharged, prescribed pain medications to take at home, has not taken any today. Pt states has been elevating leg with some improvement in swelling but persistent pain. Denies weakness, numbness, SOB, chest pain or any other complaints. 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 Time Seen by Provider: 03/27/17 07:06 Chief Complaint (Nursing): Lower Extremity Problem/Injury History Per: Patient History/Exam Limitations: no limitations Onset/Duration Of Symptoms: Days Current Symptoms Are (Timing): Still Present Severity: Moderate Recent travel outside of the [place] States: No Past Medical History Reviewed: Historical Data, Nursing Documentation, Vital Signs Vital Signs: Last Vital Signs Temp 97.8 F 03/27/17 12:00 Pulse 105 H 03/27/17 12:46 Resp 16 03/27/17 12:15 BP 138/76 03/27/17 12:46 Pulse Ox 96 03/27/17 14:00 - Medical History PMH: Asthma (last attack sep 2013), HTN, End Stage Renal Disease (dialysis mwf) , Chronic Kidney Disease - [facility] Procedures HEMODIALYSIS (10/05/13) OTHER SKIN & SUBQ I D (06/04/13) PERFORMANCE OF URINARY FILTRATION, MULTIPLE (03/17/17) Family History: States: Unknown Family Hx - Social History Hx Tobacco Use: No Hx Alcohol Use: No Hx Substance Use: No - Immunization History Hx Tetanus Toxoid Vaccination: Yes Hx Influenza Vaccination: Yes Hx Pneumococcal Vaccination: No Review Of Systems Except As Marked, All Systems Reviewed And Found Negative. Constitutional: Negative for: Fever Cardiovascular: Negative for: Chest Pain Respiratory: Negative for: Shortness of Breath Musculoskeletal: Positive for: Other (left knee pain and swelling) Neurological: Negative for: Weakness, Numbness Physical Exam - Physical Exam Appears: Non-toxic, No Acute Distress Skin: Warm, Dry, No Rash Head: Atraumatic, Normacephalic Neck: Normal, Normal ROM Chest: Symmetrical Cardiovascular: Rhythm Regular (tachycardic), No Murmur Respiratory: Normal Breath Sounds, No Rales, No Rhonchi, No Wheezing Gastrointestinal/Abdominal: Normal Exam, Soft, No Tenderness Extremity: Other (knee immobilizers bilateral knees, left knee more swollen than right; refusing exam of lower extremitites secondary to pain) Pulses: Left Dorsalis Pedis: Normal, Right Dorsalis Pedis: Normal Neurological/Psych: Oriented x3, Normal Motor, Normal Sensation ED Course And Treatment - Laboratory Results Result Diagrams: 03/27/17 07:53 03/27/17 07:53 O2 Sat by Pulse Oximetry: 96 (room air) Pulse Ox Interpretation: Normal Progress Note: Plan: labs, doppler, morphine, zofran, IV fluids Medical Decision Making Medical Decision Makin yo M w/ pmh of HTN, on dialysis MWF, presents to the ER for missed dialysis and b/l LE pain, L>R due to b/l patellar tendon rupture. Plan: -Labs -EKG -US duplex b/l LE -Consult to neprhology -Reassess and disposition Case d/w LAURI Araujo of Dr. Diaz, states that she has spoken to the patient twice on the phone informing him that he must f/u in the office to schedule outpatient surgery for b/l patellar tendon rupture. States that the patient does not need any immediate surgery or orthopedic intervention at this time. Labs reviewed. EKG: NSR at 99, (-) acute ST changes, (-) peaked T waves, as read by PA. US duplex b/l LE: (-) DVT. Case d/w Dr. Beth, covering fro Dr. Harris, agrees with plan to admit for observation for dialysis. Patient notified of current plan of care. Patient verbalize understanding of diagnosis and further plan of care. I have given the patient opportunity to ask questions. Case d/w Dr. Hernandez, [facility] production analyst, agrees with plan. Consent for hemodialysis obtained. Disposition - Disposition Disposition: HOSPITALIZED Disposition Time: 10:00 (medical obs) Condition: STABLE - Clinical Impression Clinical Impression: Joint swelling, ESRD needing dialysis, Patellar tendon rupture - PA / LINUX ADMINISTRATOR / Resident Statement MD/DO has reviewed & agrees with the documentation as recorded. - Scribe Statement The provider has reviewed the documentation as recorded by the Mel Lyles All medical record entries made by the Mel were at my direction and personally dictated by me. I have reviewed the chart and agree that the record accurately reflects my personal performance of the history, physical exam, medical decision making, and the department course for this patient. I have also personally directed, reviewed, and agree with the discharge instructions and disposition.
[2017-03-27] MEDS ORDERED: Morphine 4 MG/ML VIAL ONE (07:52)
[2017-03-27 08:01] LABS: BASO # 0.1 K/uL (0.0-0.2); BASO % 0.8 % (0.0-2.0); EOS # 0.8 K/uL (0.0-0.7); EOS % 7.4 % (0.0-4.0); HEMATOCRIT 25.8 % (35.0-51.0); LYMPH # 0.7 K/uL (1.0-4.3); LYMPH % 6.5 % (20.0-40.0); MEAN CELL VOLUME 88.7 fL (80.0-94.0); MEAN CORPUSCULAR HEMOGLOBIN 29.3 pg (27.0-31.0); MEAN PLATELET VOLUME 7.4 fL (7.2-11.7); MONO # 0.8 K/uL (0.0-0.8); PLATELET COUNT 271 K/uL (130-400); RED CELL DISTRIBUTION WIDTH 16.5 % (11.5-14.5); WHITE BLOOD COUNT 11.2 K/uL (4.8-10.8)
[2017-03-27 08:16] LABS: POTASSIUM 5.6 mmol/L (3.6-5.2)
[2017-03-27 08:18] LABS: BILIRUBIN,TOTAL 1.7 mg/dL (0.2-1.3); TOTAL PROTEIN 7.5 g/dL (6.3-8.3)
[2017-03-27 08:19] LABS: CALCIUM 8.1 mg/dl (8.6-10.4)
[2017-03-27 08:46] LABS: EOSINOPHIL 10 % (0-4); NEUTROPHIL 80 % (50-75); TOTAL CELLS COUNTED 100
--- NOTE | 2017-03-27 11:17 | CP.PCM.HP ---
<Amanda Elder - Last Filed: 03/27/17 13:04> History of Present Illness - History of Present Illness History of Present Illness: Medicine Note for Dr. Vincent, CC: leg pain, in need of dialysis HPI: 31M with PMHxof ESRD, Dialysis, HTN, asthma, and cardiomyopathy presented to the ER due to left knee pain. He states that he was discharged on Sunday from [facility] and was told that he had ruptured both of his patellar tendons. He was told to follow up with Dr. Diaz as an outpatient for his surgery and was given pain medications prior to discharge. He states that on Sunday he was icing his knees to help with the pain. He states that he had to take off his knee braces to ice them and he believes that he didn't tighten the left one correctly. He then states that later that day he began to have severe pain even though he barely walked or put weight on his knees. Sunday he states he was bed bound due to the pain and thus, missed his Sunday scheduled Dialysis. He reports the pain as localized to the knees bilaterally with the left being more painful. Patient is scheduled outpatient surgery next week with Dr Diaz. Denies Chest pain, sob, palpitations, fever, chills weakness, numbness, tingling, nausea or vomiting. PMHx- ESRD, Dialysis, HTN, asthma, and cardiomyopathy PSHx- AICD, Fistula on left arm for dialysis Meds: As per MAR Allergies- NKDA Soc Hx- denies tobacco, alcohol , and drug use. Lives with [facility] and works in [employer] FamHx- HTN Present on Admission - Present on Admission Any Indicators Present on Admission: No Past Patient History - Past Medical History & Family History Past Medical History?: Yes - Past Social History Smoking Status: Never Smoked - CARDIAC Hx Hypertension: Yes - PULMONARY Hx Asthma: Yes (last attack sep 2013) - NEUROLOGICAL Hx Neurological Disorder: No - HEENT Hx HEENT Problems: No - RENAL Hx Chronic Kidney Disease: Yes - ENDOCRINE/METABOLIC Hx Diabetes Mellitus Type 2: Yes - HEMATOLOGICAL/ONCOLOGICAL Hx Blood Disorders: Yes Hx Blood Transfusions: Yes (2010) Hx Blood Transfusion Reaction: No - INTEGUMENTARY Hx Dermatological Problems: No - MUSCULOSKELETAL/RHEUMATOLOGICAL Hx Falls: Yes - GASTROINTESTINAL Hx Gastrointestinal Disorders: No - GENITOURINARY/GYNECOLOGICAL Other/Comment: dialysis pt.doesn't make urine - PSYCHIATRIC Hx Substance Use: No - SURGICAL HISTORY Hx Surgeries: Yes Hx Arteriovenous Shunt: Yes (left upper arm 2010) Hx Vascular Access Device: Yes (2010, removed 2 months later) - ANESTHESIA Hx Anesthesia: Yes Hx Anesthesia Reactions: No Hx Malignant Hyperthermia: No Meds Allergies/Adverse Reactions: Allergies Allergy/AdvReac Type Severity Reaction Status Date / Time No Known Allergies Allergy Verified 03/27/17 06:16 Physical Exam - Constitutional Appears: No Acute Distress - Head Exam Head Exam: NORMAL INSPECTION, NORMOCEPHALIC - Respiratory Exam Respiratory Exam: Clear to Auscultation Bilateral, NORMAL BREATHING PATTERN. absent: Decreased Breath Sounds, Wheezes - Cardiovascular Exam Cardiovascular Exam: REGULAR RHYTHM, +S1, +S2 - GI/Abdominal Exam GI & Abdominal Exam: Normal Bowel Sounds, Soft - Extremities Exam Additional comments: knee immobilizers bilateral knees, left knee more swollen than right; refusing exam of lower extremitites secondary to pain - Neurological Exam Neurological exam: Alert, Oriented x3 - Skin Skin Exam: Dry, Intact, Normal Color, Warm Results - Vital Signs Recent Vital Signs: Last Vital Signs Temp 98.0 F 03/27/17 09:09 Pulse 100 H 03/27/17 09:09 Resp 20 03/27/17 09:09 BP 135/81 03/27/17 09:09 Pulse Ox 96 03/27/17 09:09 - Labs Result Diagrams: 03/27/17 07:53 03/27/17 07:53 Assessment & Plan - Assessment and Plan (Free Text) Plan: Bilateral Patellar Ruptures -Percocet Q6H PRN -Morphine 3mg Q3H PRN -Patient is scheduled outpatient surgery next week with Dr Diaz ESRD -[facility] dialysis -Patient's Lowerator Operator is Dr. Harris. -Patient missed his dialysis yesterday. -Dr. Beth - consulted for dialysis orders- patient is to receive dialysis today. HTN - Resume home medications: lisinopril 10mg po daily, lopressor 25mg PO BID Prophylactic Measures -GI PPX: Protonix 40mg PO daily -DVT PPX: knees are immobilized, Heparin 5000units Q12 - Zofran PRN - Renal Diet DW Jael Yi DO, PGY-1 <William Vincent M - Last Filed: 03/27/17 14:22> Review of Systems - Review of Systems All systems: reviewed and no additional remarkable complaints except Review of Systems: 13 point review of system done. - Musculoskeletal Musculoskeletal: Abnormal Gait, Joint Swelling, Limited Range of Motion Results - Vital Signs Recent Vital Signs: Last Vital Signs Temp 97.8 F 03/27/17 12:00 Pulse 105 H 03/27/17 12:46 Resp 16 03/27/17 12:15 BP 138/76 03/27/17 12:46 Pulse Ox 96 03/27/17 14:02 - Labs Result Diagrams: 03/27/17 07:53 03/27/17 07:53 Attending/Attestation - Attestation I have personally seen and examined this patient.: Yes I have fully participated in the care of the patient.: Yes I have reviewed all pertinent clinical information: Yes Notes (Text): 03/27/17 14:21 Patient was seen and examined at bedside with the resident at the time of admission I discussed the plan of care with the resident Patient will receive hemodialysis today I agree with the history and physical and assessment/plan by the resident with the exceptions noted here.
[2017-03-27] MEDS ORDERED: Epoetin Alfa 10,000 unit/ml Dialysis IV ONE (12:45)
[2017-03-27] MEDS ORDERED: Morphine 4 MG/ML VIAL IVP PRN (12:55)
--- NOTE | 2017-03-27 13:54 | VASCLAB ---
PROCEDURE: Lower Extremity Venous Duplex Exam. HISTORY: pain, r/o DVT PRIORS: None. TECHNIQUE: Bilateral common femoral, femoral, popliteal and posterior tibial, peroneal and great saphenous veins were evaluated. Flow was assessed with color Doppler, compressibility, assessment of phasic flow and augmentation response. Report prepared by Nikolas Robins, MORIAH, RVT FINDINGS: RIGHT: 1. Common Femoral Vein: 1.1. Compressibility - Fully compressible: Thrombus - None : Flow - Phasic: Augmentation -Normal: Reflux - None. 2. Femoral Vein: 2.1. Compressibility - Fully compressible: Thrombus - None : Flow - Phasic: Augmentation -Normal: Reflux - None. 3. Popliteal Vein: 3.1. Compressibility - Fully compressible: Thrombus - None : Flow - Phasic: Augmentation -Normal: Reflux - None. 4. Posterior Tibial Vein: 4.1. Compressibility - Fully compressible: Thrombus - None: Flow - Phasic: Augmentation -Normal: Reflux - None. 5. Peroneal Vein: 5.1. Compressibility - Fully compressible: Thrombus - None: Flow - Phasic: Augmentation -Normal: Reflux - None. 6. Great Saphenous Vein: 6.1. Compressibility - Fully compressible: Thrombus - None: Flow - Phasic: Augmentation - Normal: Reflux - None. LEFT: 1. Common Femoral Vein: 1.1. Compressibility - Fully compressible: Thrombus - None: Flow - Phasic: Augmentation -Normal: Reflux - None. 2. Femoral Vein: 2.1. Compressibility - Fully compressible: Thrombus - None: Flow - Phasic: Augmentation -Normal: Reflux - None. 3. Popliteal Vein: 3.1. Compressibility - Fully compressible: Thrombus - None : Flow - Phasic: Augmentation -Normal: Reflux - None. 4. Posterior Tibial Vein: 4.1. Compressibility - Fully compressible: Thrombus - None: Flow - Phasic: Augmentation -Normal: Reflux - None. 5. Peroneal Vein: 5.1. Compressibility - Fully compressible: Thrombus - None: Flow - Phasic: Augmentation -Normal: Reflux - None. 6. Great Saphenous Vein: 6.1. Compressibility - Fully compressible: Thrombus - None: Flow - Phasic: Augmentation - Normal: Reflux - None. OTHER FINDINGS: Right: None significant. Left: None significant. IMPRESSION: Right: No evidence of deep or superficial vein thrombosis of the right lower extremity. Normal valve function noted of the right side. Left: No evidence of deep or superficial vein thrombosis of the left lower extremity. Normal valve function noted of the left side.
[2017-03-27] MEDS: Oxycodone/Acetaminophen 5/325 mg Tab PO PRN ×2 (15:02→21:08)
[2017-03-28] MEDS: Oxycodone/Acetaminophen 5/325 mg Tab PO PRN ×2 (03:56→15:02)
[2017-03-28 07:28] LABS: BASO # 0.1 K/uL (0.0-0.2); BASO % 0.7 % (0.0-2.0); EOS # 0.6 K/uL (0.0-0.7); EOS % 7.1 % (0.0-4.0); HEMATOCRIT 23.3 % (35.0-51.0); LYMPH # 1.1 K/uL (1.0-4.3); LYMPH % 12.7 % (20.0-40.0); MEAN CELL VOLUME 89.9 fL (80.0-94.0); MEAN CORPUSCULAR HEMOGLOBIN 30.1 pg (27.0-31.0); MEAN CORPUSCULAR HGB CONC 33.5 g/dL (33.0-37.0); MEAN PLATELET VOLUME 7.2 fL (7.2-11.7); MONO % 12.2 % (0.0-10.0); RED CELL DISTRIBUTION WIDTH 16.6 % (11.5-14.5); WHITE BLOOD COUNT 8.5 K/uL (4.8-10.8)
[2017-03-28 08:02] LABS: BILIRUBIN,TOTAL 1.3 mg/dL (0.2-1.3); CALCIUM 8.7 mg/dl (8.6-10.4); POTASSIUM 5.9 mmol/L (3.6-5.2); TOTAL PROTEIN 6.9 g/dL (6.3-8.3)
[2017-03-28] MEDS ORDERED: Sod Polystyrene Sulf 15 gm/60 ml Oral Susp PO ONE (09:31)
[2017-03-28] MEDS: Pantoprazole 40 mg EC Tab PO SCH ×2 (10:30→15:01)
[2017-03-28] MEDS ORDERED: Epoetin Alfa 10,000 unit/ml Dialysis IV ONE (10:59)
[2017-03-28 13:27] VITALS: TEMP 98
[2017-03-28 13:48] VITALS: O2SAT 97
[2017-03-28 16:04] VITALS: BP 142/73; PULSE 97; RESP 20
--- NOTE | 2017-03-28 16:23 | CP.PCM.DIS ---
<SamuelAmanda yung - Last Filed: 03/28/17 16:22> Provider - Provider Date of Admission: 03/27/17 10:16 Attending physician: William Vincent MD Time Spent in preparation of Discharge (in minutes): 45 Hospital Course - Lab Results Lab Results: Most Recent Lab Values WBC 8.5 K/uL (4.8-10.8) 03/28/17 06:59 RBC 2.59 Mil/uL (4.40-5.90) L 03/28/17 06:59 Hgb 7.8 g/dL (12.0-18.0) L 03/28/17 06:59 Hct 23.3 % (35.0-51.0) L 03/28/17 06:59 MCV 89.9 fL (80.0-94.0) 03/28/17 06:59 MCH 30.1 pg (27.0-31.0) 03/28/17 06:59 MCHC 33.5 g/dL (33.0-37.0) 03/28/17 06:59 RDW 16.6 % (11.5-14.5) H 03/28/17 06:59 Plt Count 264 K/uL (130-400) 03/28/17 06:59 MPV 7.2 fL (7.2-11.7) 03/28/17 06:59 Neut % (Auto) 67.3 % (50.0-75.0) 03/28/17 06:59 Lymph % (Auto) 12.7 % (20.0-40.0) L 03/28/17 06:59 Kings % (Auto) 12.2 % (0.0-10.0) H 03/28/17 06:59 Eos % (Auto) 7.1 % (0.0-4.0) H 03/28/17 06:59 Baso % (Auto) 0.7 % (0.0-2.0) 03/28/17 06:59 Neut # 5.7 K/uL (1.8-7.0) 03/28/17 06:59 Lymph # 1.1 K/uL (1.0-4.3) 03/28/17 06:59 Kings # 1.0 K/uL (0.0-0.8) H 03/28/17 06:59 Eos # 0.6 K/uL (0.0-0.7) 03/28/17 06:59 Baso # 0.1 K/uL (0.0-0.2) 03/28/17 06:59 Neutrophils % (Manual) 80 % (50-75) H 03/27/17 07:53 Lymphocytes % (Manual) 7 % (20-40) L 03/27/17 07:53 Monocytes % (Manual) 3 % (0-10) 03/27/17 07:53 Eosinophils % (Manual) 10 % (0-4) H 03/27/17 07:53 Platelet Estimate Normal (NORMAL) 03/27/17 07:53 Polychromasia Slight 03/27/17 07:53 Hypochromasia (manual) Slight 03/27/17 07:53 Anisocytosis (manual) Slight 03/27/17 07:53 Sodium 136 mmol/L (132-148) 03/28/17 06:59 Potassium 5.9 mmol/L (3.6-5.2) H 03/28/17 06:59 Chloride 93 mmol/L (98-107) L 03/28/17 06:59 Carbon Dioxide 29 mmol/L (22-30) 03/28/17 06:59 Anion Gap 20 (10-20) 03/28/17 06:59 BUN 68 mg/dL (9-20) H 03/28/17 06:59 Creatinine 12.9 MG/DL (0.8-1.5) H* D 03/28/17 06:59 Est GFR ( Amer) 5 03/28/17 06:59 Est GFR (Non-Af Amer) 4 03/28/17 06:59 Random Glucose 86 mg/dL (75-110) 03/28/17 06:59 Calcium 8.7 mg/dl (8.6-10.4) 03/28/17 06:59 Total Bilirubin 1.3 mg/dL (0.2-1.3) 03/28/17 06:59 AST 32 U/L (17-59) 03/28/17 06:59 ALT 18 U/L (21-72) L D 03/28/17 06:59 Alkaline Phosphatase 532 U/L (38-126) H 03/28/17 06:59 Total Protein 6.9 g/dL (6.3-8.3) 03/28/17 06:59 Albumin 3.4 g/dL (3.5-5.0) L 03/28/17 06:59 Globulin 3.5 gm/dL (2.2-3.9) 03/28/17 06:59 Albumin/Globulin Ratio 1.0 (1.0-2.1) 03/28/17 06:59 Blood Type O POSITIVE 03/28/17 11:47 Antibody Screen Negative 03/28/17 11:47 - Hospital Course Hospital Course: Upon admission: CC: leg pain, in need of dialysis HPI: 31M with PMHxof ESRD, Dialysis, HTN, asthma, and cardiomyopathy presented to the ER due to left knee pain. He states that he was discharged on Sunday from [facility] and was told that he had ruptured both of his patellar tendons. He was told to follow up with Dr. Diaz as an outpatient for his surgery and was given pain medications prior to discharge. He states that on Sunday he was icing his knees to help with the pain. He states that he had to take off his knee braces to ice them and he believes that he didn't tighten the left one correctly. He then states that later that day he began to have severe pain even though he barely walked or put weight on his knees. Sunday he states he was bed bound due to the pain and thus, missed his Sunday scheduled Dialysis. He reports the pain as localized to the knees bilaterally with the left being more painful. Patient is scheduled outpatient surgery next week with Dr. Diaz. Denies Chest pain, sob, palpitations, fever, chills weakness, numbness, tingling, nausea or vomiting. PMHx- ESRD, Dialysis, HTN, asthma, and cardiomyopathy PSHx- AICD, Fistula on left arm for dialysis Meds: As per MAR Allergies- NKDA Soc Hx- denies tobacco, alcohol , and drug use. Lives with [facility] and works in [employer] FamHx- HTN Throughout Hospital Course: Patient was admitted due to missing his original dialysis session. Patient underwent dialysis, and then proceeded to have the scheduled dialysis session. Patients pain was well controlled for his bilateral patellar rupture. Patient aware that he is scheduled for OR next week. This is a brief summary of the patients hospital course. Please review EMR for complete record. Discharge Exam - Head Exam Head Exam: NORMAL INSPECTION, NORMOCEPHALIC - Eye Exam Eye Exam: Normal appearance - ENT Exam ENT Exam: Mucous Membranes Moist - Respiratory Exam Respiratory Exam: NORMAL BREATHING PATTERN. absent: Decreased Breath Sounds, Wheezes - Cardiovascular Exam Cardiovascular Exam: REGULAR RHYTHM, RRR, +S1, +S2 - GI/Abdominal Exam GI & Abdominal Exam: Normal Bowel Sounds, Soft. absent: Distended, Tenderness - Neurological Exam Neurological exam: Alert, Oriented x3 - Skin Skin Exam: Dry, Intact, Normal Color, Warm Discharge Plan - Discharge Medications Prescriptions: oxyCODONE/Acetaminophen [Percocet 5/325 mg Tab] 1 tab PO Q6H PRN #20 tab PRN Reason: Pain, Moderate (4-7) - Follow Up Plan Condition: STABLE Disposition: HOME/ ROUTINE Instructions: Renal Failure Diet (DC), Patella Tendon Repair (DC), Patella Tendon Repair (GEN) Additional Instructions: Patient instructed to continue taking pain medications as needed for pain. And resume current home medications as prescribed. Patient is to follow up with Dr. Diaz for his scheduled surgery next week. Patient instructed to continue on current dialysis schedule. Please return to the ED if your symptoms worsen. Referrals: Gilda Diaz MD [Staff Provider] - <William Vincent - Last Filed: 03/29/17 14:41> Provider - Provider Date of Admission: 03/27/17 10:16 Attending physician: William Vincent MD Hospital Course - Lab Results Lab Results: Most Recent Lab Values WBC 7.7 K/uL (4.8-10.8) 03/28/17 16:50 RBC 2.99 Mil/uL (4.40-5.90) L 03/28/17 16:50 Hgb 8.7 g/dL (12.0-18.0) L 03/28/17 16:50 Hct 26.6 % (35.0-51.0) L 03/28/17 16:50 MCV 88.9 fL (80.0-94.0) 03/28/17 16:50 MCH 29.3 pg (27.0-31.0) 03/28/17 16:50 MCHC 32.9 g/dL (33.0-37.0) L 03/28/17 16:50 RDW 16.6 % (11.5-14.5) H 03/28/17 16:50 Plt Count 289 K/uL (130-400) 03/28/17 16:50 MPV 7.2 fL (7.2-11.7) 03/28/17 16:50 Neut % (Auto) 67.3 % (50.0-75.0) 03/28/17 06:59 Lymph % (Auto) 12.7 % (20.0-40.0) L 03/28/17 06:59 Kings % (Auto) 12.2 % (0.0-10.0) H 03/28/17 06:59 Eos % (Auto) 7.1 % (0.0-4.0) H 03/28/17 06:59 Baso % (Auto) 0.7 % (0.0-2.0) 03/28/17 06:59 Neut # 5.7 K/uL (1.8-7.0) 03/28/17 06:59 Lymph # 1.1 K/uL (1.0-4.3) 03/28/17 06:59 Kings # 1.0 K/uL (0.0-0.8) H 03/28/17 06:59 Eos # 0.6 K/uL (0.0-0.7) 03/28/17 06:59 Baso # 0.1 K/uL (0.0-0.2) 03/28/17 06:59 Neutrophils % (Manual) 80 % (50-75) H 03/27/17 07:53 Lymphocytes % (Manual) 7 % (20-40) L 03/27/17 07:53 Monocytes % (Manual) 3 % (0-10) 03/27/17 07:53 Eosinophils % (Manual) 10 % (0-4) H 03/27/17 07:53 Platelet Estimate Normal (NORMAL) 03/27/17 07:53 Polychromasia Slight 03/27/17 07:53 Hypochromasia (manual) Slight 03/27/17 07:53 Anisocytosis (manual) Slight 03/27/17 07:53 Sodium 136 mmol/L (132-148) 03/28/17 06:59 Potassium 5.9 mmol/L (3.6-5.2) H 03/28/17 06:59 Chloride 93 mmol/L (98-107) L 03/28/17 06:59 Carbon Dioxide 29 mmol/L (22-30) 03/28/17 06:59 Anion Gap 20 (10-20) 03/28/17 06:59 BUN 68 mg/dL (9-20) H 03/28/17 06:59 Creatinine 12.9 MG/DL (0.8-1.5) H* D 03/28/17 06:59 Est GFR ( Amer) 5 03/28/17 06:59 Est GFR (Non-Af Amer) 4 03/28/17 06:59 Random Glucose 86 mg/dL (75-110) 03/28/17 06:59 Calcium 8.7 mg/dl (8.6-10.4) 03/28/17 06:59 Total Bilirubin 1.3 mg/dL (0.2-1.3) 03/28/17 06:59 AST 32 U/L (17-59) 03/28/17 06:59 ALT 18 U/L (21-72) L D 03/28/17 06:59 Alkaline Phosphatase 532 U/L (38-126) H 03/28/17 06:59 Total Protein 6.9 g/dL (6.3-8.3) 03/28/17 06:59 Albumin 3.4 g/dL (3.5-5.0) L 03/28/17 06:59 Globulin 3.5 gm/dL (2.2-3.9) 03/28/17 06:59 Albumin/Globulin Ratio 1.0 (1.0-2.1) 03/28/17 06:59 Blood Type O POSITIVE 03/28/17 11:47 Antibody Screen Negative 03/28/17 11:47 Attending/Attestation - Attestation I have personally seen and examined this patient.: Yes I have fully participated in the care of the patient.: Yes I have reviewed all pertinent clinical information, including history, physical exam and plan: Yes Notes (Text): 03/29/17 14:40 Patient was seen and examined at bedside with the resident. Patient received hemodialysis. Patient has a surgery planned for next week for patellar tendon rupture. We will discharge the patient to home today. He'll follow with orthopedics for his surgery. I discussed the plan and of care with the resident and I agree with the above discharge note by the resident.
[2017-03-28 16:58] LABS: HEMATOCRIT 26.6 % (35.0-51.0); MEAN CELL VOLUME 88.9 fL (80.0-94.0); MEAN CORPUSCULAR HEMOGLOBIN 29.3 pg (27.0-31.0); MEAN CORPUSCULAR HGB CONC 32.9 g/dL (33.0-37.0); MEAN PLATELET VOLUME 7.2 fL (7.2-11.7); RED CELL DISTRIBUTION WIDTH 16.6 % (11.5-14.5); WHITE BLOOD COUNT 7.7 K/uL (4.8-10.8)
--- NOTE | 2017-03-28 18:33 | CARD ---
APPROVED REPORT EKG Measurement Heart [id number] <Conclusion> Normal sinus rhythm Minimal voltage criteria for LVH, may be normal variant Nonspecific T wave abnormality Prolonged QT Abnormal ECG
--- NOTE | 2017-03-29 00:32 | CP.PCM.CON ---
History of Present Illness - History of Present Illness History of Present Illness: REASONS FOR CONSULT : ESRD ON HD Viry Bee IN NEED FOR URGENT HD HE MISSED HIS HD ON MON ANEMIA OF CKD PT IS WELL KNOWN TO OUR SERVICE .. WAS ADMITTED AND D/C RECENTLY PT WAS SEEN AND EXAMINED YESTERDAY AND TODAY .. PT RECIEVED HD YESTERDAY AND TODAY Past Patient History - Past Medical History & Family History Past Medical History?: Yes - Past Social History Smoking Status: Never Smoked - CARDIAC Hx Hypertension: Yes - PULMONARY Hx Asthma: Yes (last attack sep 2013) - NEUROLOGICAL Hx Neurological Disorder: No - HEENT Hx HEENT Problems: No - RENAL Hx Chronic Kidney Disease: Yes - ENDOCRINE/METABOLIC Hx Endocrine Disorders: Yes Hx Diabetes Mellitus Type 2: No - HEMATOLOGICAL/ONCOLOGICAL Hx Blood Disorders: Yes Hx Blood Transfusions: Yes (2010) Hx Blood Transfusion Reaction: No - INTEGUMENTARY Hx Dermatological Problems: No - MUSCULOSKELETAL/RHEUMATOLOGICAL Hx Falls: Yes - GASTROINTESTINAL Hx Gastrointestinal Disorders: No - GENITOURINARY/GYNECOLOGICAL Other/Comment: dialysis pt.doesn't make urine - PSYCHIATRIC Hx Substance Use: No - SURGICAL HISTORY Hx Surgeries: Yes Hx Arteriovenous Shunt: Yes (left upper arm 2010) Hx Vascular Access Device: Yes (2010, removed 2 months later) - ANESTHESIA Hx Anesthesia: Yes Hx Anesthesia Reactions: No Hx Malignant Hyperthermia: No Meds Home Medications: Home Medication List Medication Instructions Recorded Confirmed Type oxyCODONE/Acetaminophen [Percocet 1 tab PO Q6H PRN #20 tab 03/28/17 Rx 5/325 mg Tab] Allergies/Adverse Reactions: Allergies Allergy/AdvReac Type Severity Reaction Status Date / Time No Known Allergies Allergy Verified 03/27/17 06:16 Results - Vital Signs Recent Vital Signs: Last Vital Signs Temp 98 F 03/28/17 16:00 Pulse 97 H 03/28/17 16:00 Resp 20 03/28/17 16:00 BP 142/73 03/28/17 17:26 Pulse Ox 97 03/28/17 16:00 - Labs Result Diagrams: 03/28/17 16:50 03/28/17 06:59 Labs: Laboratory Results - last 24 hr 03/28/17 03/28/17 03/28/17 06:59 06:59 11:47 WBC 8.5 RBC 2.59 L Hgb 7.8 L Hct 23.3 L MCV 89.9 MCH 30.1 MCHC 33.5 RDW 16.6 H Plt Count 264 MPV 7.2 Neut % (Auto) 67.3 Lymph % (Auto) 12.7 L Young % (Auto) 12.2 H Eos % (Auto) 7.1 H Baso % (Auto) 0.7 Neut # 5.7 Lymph # 1.1 Young # 1.0 H Eos # 0.6 Baso # 0.1 Sodium 136 Potassium 5.9 H Chloride 93 L Carbon Dioxide 29 Anion Gap 20 BUN 68 H Creatinine 12.9 H* D Est GFR ( Amer) 5 Est GFR (Non-Af Amer) 4 Random Glucose 86 Calcium 8.7 Total Bilirubin 1.3 AST 32 ALT 18 L D Alkaline Phosphatase 532 H Total Protein 6.9 Albumin 3.4 L Globulin 3.5 Albumin/Globulin Ratio 1.0 Blood Type O POSITIVE Antibody Screen Negative 03/28/17 16:50 WBC 7.7 RBC 2.99 L Hgb 8.7 L Hct 26.6 L MCV 88.9 MCH 29.3 MCHC 32.9 L RDW 16.6 H Plt Count 289 MPV 7.2 Neut % (Auto) Lymph % (Auto) Young % (Auto) Eos % (Auto) Baso % (Auto) Neut # Lymph # Young # Eos # Baso # Sodium Potassium Chloride Carbon Dioxide Anion Gap BUN Creatinine Est GFR ( Amer) Est GFR (Non-Af Amer) Random Glucose Calcium Total Bilirubin AST ALT Alkaline Phosphatase Total Protein Albumin Globulin Albumin/Globulin Ratio Blood Type Antibody Screen Assessment & Plan - Assessment and Plan (Free Text) Assessment: ESRD ON HD .. RECIEVED HIS HD TODAY MISSED HIS HD ON SUN .. RECIEVED HD STAT ON P : D/W DO RESIDENT CAN BE D/C POST HD CAN BE F/U AN OUT PT - Date & Time Date: 03/28/17 Time: 13:00
[2017-03-30] MEDS ORDERED: Pneumococcal 23-Valent Vaccine IM ONE (10:00)
== END 2017-03-28 16:00 | disposition home or self-care (01) ==
LOC: C.ER 05:52 → C.5T 10:16
PROVIDERS: ADMIT Internal Medicine; ATTEND Internal Medicine
DX: M66.862 Spontaneous rupture of other tendons, left lower leg (principal); M66.861 Spontaneous rupture of other tendons, right lower leg; I12.0 Hypertensive chronic kidney disease with stage 5 chronic kidney disease or end stage renal disease; N18.6 End stage renal disease; Z74.01 Bed confinement status; Z99.2 Dependence on renal dialysis
CPT/HCPCS: 36415; 36430; 80053; 85025; 85027; 86850; 86900; 86920; 93005; 93970; 96374; 96375; 96376; 99285; G0257; G0378; J1644; J2270; J2405; P9051; Q4081

== ENCOUNTER 2017-03-30 11:08 | Inpatient (IN) | payer MEDICARE, OTHER ==
[2017-03-30 11:20] VITALS: BMI 25.9
[2017-03-30] MEDS ORDERED: Oxycodone/Acetaminophen 5/325 mg Tab PO STA (11:46)
[2017-03-30] MEDS ORDERED: Oxycodone/Acetaminophen 5/325 mg Tab ONE (11:53)
--- NOTE | 2017-03-30 12:11 | C.PDOC ---
History Of Present Illness Patient with history of bilateral patellar tendon rupture since 03/17/17, complains of knee pain worse on the left side. Patient states he finished dialysis and during transport from wheelchair when he stood to pivit he felt a "twist in left knee", an now complains severe pain. Patient has scheduled surgery for next week, with Dr Diaz. Patient was discharged from hospital 2 day ago after missing HD and for knee pain. Time Seen by Provider: 03/30/17 11:37 Chief Complaint (Nursing): Lower Extremity Problem/Injury History Per: Patient History/Exam Limitations: no limitations Onset/Duration Of Symptoms: Days Past Medical History Reviewed: Historical Data, Nursing Documentation, Vital Signs Vital Signs: Last Vital Signs Temp 98.0 F 03/30/17 11:18 Pulse 98 H 03/30/17 16:21 Resp 18 03/30/17 16:21 BP 156/99 H 03/30/17 16:21 Pulse Ox 96 03/30/17 17:03 - Medical History PMH: Asthma (last attack sep 2013), HTN, End Stage Renal Disease (dialysis [facility]) , Chronic Kidney Disease - [facility] Procedures HEMODIALYSIS (10/05/13) OTHER SKIN & SUBQ I D (06/04/13) PERFORMANCE OF URINARY FILTRATION, MULTIPLE (03/17/17) Family History: States: Unknown Family Hx - Social History Hx Tobacco Use: No Hx Alcohol Use: No Hx Substance Use: No - Immunization History Hx Tetanus Toxoid Vaccination: No Hx Influenza Vaccination: No Hx Pneumococcal Vaccination: No Review Of Systems Cardiovascular: Negative for: Chest Pain Respiratory: Negative for: Shortness of Breath Musculoskeletal: Positive for: Other (knee pain) Neurological: Negative for: Weakness, Headache, Dizziness Physical Exam - Physical Exam Appears: Non-toxic, No Acute Distress Skin: Normal Color, Warm Head: Atraumatic, Normacephalic Eye(s): bilateral: Normal Inspection Oral Mucosa: Moist Respiratory: No Rales Extremity: Tenderness (tenderness to knee), Other (Bilateral knee immobilizers, right knee slower than left knee) Neurological/Psych: Oriented x3 ED Course And Treatment - Laboratory Results Result Diagrams: 03/30/17 16:13 03/30/17 16:13 O2 Sat by Pulse Oximetry: 96 - CT Scan/US CXR CT/US Interpretation: Accession No. : [id number]. Patient Name / ID : KAYLEEN AVALOS / [id number]. Exam Date : 03/30/2017 15:53:55 ( Approved ). Study Comment : Sex / Age : M / 31Y. Creator : RYDER GRAYSON. Dictator : Fercho Ko MD. Products Mechanical Design Engineer : Room Maid : Fercho Ko MD. Approver2 : Report Date : 03/30/2017 16:10:22. My Comment : . HISTORY: chest pain. COMPARISON: 03/17/2017. FINDINGS: LUNGS: No active pulmonary disease. PLEURA: No significant pleural effusion identified, no pneumothorax apparent. Medical Decision Making Medical Decision Making: Patient has bilateral patellar tendon rupture since 03/17/17 and complains of knee pain worse on the left side. All prior records reviewed patient had initial admission for diagnosis of bilateral patellar tendon rupture on 03/17/17, ortho consult with Dr Diaz, cardiology consult Dr Skinner and renal consult Dr Beth. Patient was readmitted on 03/27 after miss HD secondary to severe knee pain, discharged . On my evaluation patient was agitated and refused xray, stating he just had xrays done few days ago. He only wanted pain meds. Percocet PO was ordered. Plan was to discharge at 12:35. Patient advised to apply ice rest and to follow up with ortho outpatient. Patient was refusing to leave and requested calling his solar resource assessor Dr Skinner. I spoke with Dr Skinner who states if patient is stable for discharge he can follow up outpatient. I discussed with patient and at bedside there was no medical indication for admission at this time. Patient states he is unable to ambulate at home and cannot go home to be bed-bound. I consulted briefcase sewer Deja to arrange for social services director, visiting nurse at home and physical therapy. I contacted and spoke with Dr Diaz who states the patient missed his appointment and has not been scheduled for surgery. He has a new appointment scheduled in the office on 04/04/17. He states this is not an immediate orthopedic intervention and must follow up outpatient. After several hours, multiple calls and attempts to assist with outpatient rehab and social services director, the patient is not willing and refusing home nurse and cannot do PT. ER director Dr Delgado was made aware of case. Shortly after physical therapy evaluation, patient complained of chest pain, midsternal tightness and no associated SOB. Orders placed for EKG, labs and CXR. EKG shows NS with prolonged QT, no acute ST-T changes, no changes compared to prior. Case was reviewed with Dr Hensley, recommended insulin for the hyperkalemia. Will place patient on admission telemetry under Dr Skinner Disposition Counseled Patient/Family Regarding: Need For Followup - Disposition Disposition: HOSPITALIZED Disposition Time: 15:53 Condition: STABLE Additional Instructions: Please follow up with your orthopedic - POA Present On Arrival: None - Clinical Impression Clinical Impression: Patellar tendon rupture, Chest pain, Inability to ambulate due to left knee - PA / GEM STONE CUTTER / Resident Statement MD/DO has reviewed & agrees with the documentation as recorded. - Scribe Statement The provider has reviewed the documentation as recorded by the Mel Iverson All medical record entries made by the Mel were at my direction and personally dictated by me. I have reviewed the chart and agree that the record accurately reflects my personal performance of the history, physical exam, medical decision making, and the department course for this patient. I have also personally directed, reviewed, and agree with the discharge instructions and disposition. Decision To Admit - Pt Status Changed To: Hospital Disposition Of: Inpatient - Admit Certification Admit to Inpatient:: After my assessment, the patient will require hospitalization for at least two midnights. This is because of the severity of symptoms shown, intensity of services needed, and/or the medical risk in this patient being treated as an outpatient. - InPatient: Physician Admission Certification: I certify that this patient requires 2 or more midnights of care for the following reason:: Patient with severe knee pain s.p patellar rupture, unable to ambulate and fall risk. Patient developed chest pain during ED evaluation. Patient to be admitted for chest pain and also social work and needs ortho consult - . Bed Request Type: Telemetry Admitting Physician: Yair Skinner Patient Diagnosis: Patellar tendon rupture, Chest pain, Inability to ambulate due to left knee
[2017-03-30] MEDS ORDERED: Sodium Chloride 0.9% 1,000 ML IV ONE (15:30)
[2017-03-30] MEDS ORDERED: Sodium Chloride 0.9% 1,000 ML ONE (15:45)
[2017-03-30 16:19] LABS: BASO # 0.1 K/uL (0.0-0.2); BASO % 0.9 % (0.0-2.0); EOS # 0.3 K/uL (0.0-0.7); EOS % 2.7 % (0.0-4.0); HEMATOCRIT 26.5 % (35.0-51.0); LYMPH # 0.5 K/uL (1.0-4.3); LYMPH % 4.7 % (20.0-40.0); MEAN CELL VOLUME 88.3 fL (80.0-94.0); MEAN CORPUSCULAR HEMOGLOBIN 29.7 pg (27.0-31.0); MEAN CORPUSCULAR HGB CONC 33.6 g/dL (33.0-37.0); MEAN PLATELET VOLUME 6.9 fL (7.2-11.7); MONO # 0.9 K/uL (0.0-0.8); MONO % 8.8 % (0.0-10.0); NRBC % 0.1 % (0.0-2.0); PLATELET COUNT 413 K/uL (130-400); RED CELL DISTRIBUTION WIDTH 16.7 % (11.5-14.5); WHITE BLOOD COUNT 10.3 K/uL (4.8-10.8)
[2017-03-30 16:27] LABS: INR 1.2
[2017-03-30 16:29] LABS: ALB/GLOB RATIO 0.9 (1.0-2.1); BILIRUBIN,TOTAL 2.4 mg/dL (0.2-1.3); CALCIUM 8.3 mg/dl (8.6-10.4); TOTAL PROTEIN 8.5 g/dL (6.3-8.3)
[2017-03-30 16:33] LABS: POTASSIUM 6.2 mmol/L (3.6-5.2)
--- NOTE | 2017-03-30 16:44 | RAD ---
HISTORY: chest pain COMPARISON: 03/17/2017 FINDINGS: LUNGS: No active pulmonary disease. PLEURA: No significant pleural effusion identified, no pneumothorax apparent. CARDIOVASCULAR: AICD. Mild cardiomegaly. No congestive change. OSSEOUS STRUCTURES: No significant abnormalities. VISUALIZED UPPER ABDOMEN: Normal. OTHER FINDINGS: None. IMPRESSION: No active disease.
[2017-03-30 16:49] LABS: TROPONIN I 0.145 ng/mL (0.00-0.120)
[2017-03-30 16:57] LABS: EOSINOPHIL 1 % (0-4); NEUTROPHIL 88 % (50-75); TOTAL CELLS COUNTED 100
[2017-03-30] MEDS ORDERED: (Novolin R) Insulin Human Regular 100 units/ml vial IV ONE (16:57)
[2017-03-30] MEDS ORDERED: Dextrose 50% SYRINGE Inj (50 ml) IV STA (16:57)
[2017-03-30] MEDS ORDERED: Dextrose 50% SYRINGE Inj (50 ml) ONE (17:38)
[2017-03-30] MEDS ORDERED: (Novolin R) Insulin Human Regular 100 units/ml vial ONE (17:38)
[2017-03-30] MEDS: Oxycodone/Acetaminophen 5/325 mg Tab PO PRN (21:22)
[2017-03-31] MEDS: Oxycodone/Acetaminophen 5/325 mg Tab PO PRN ×5 (02:50→23:58)
--- NOTE | 2017-03-31 06:36 | CP.PCM.PN ---
Subjective - Date & Time of Evaluation Date of Evaluation: 03/31/17 Time of Evaluation: 06:15 - Subjective Subjective: Pt presents with fall after dialysis worried he had some damage to his knees. No cp sob nausea abdominal william, dizziness, vomitting, ear drainage knee pain, knee swellling. ICD stable no shocks Objective - Vital Signs/Intake and Output Vital Signs (last 24 hours): Temp Pulse Resp BP Pulse Ox 98.6 F 104 H 18 152/82 H 96 03/30/17 23:55 03/31/17 00:30 03/30/17 23:55 03/30/17 23:55 03/30/17 23:55 Intake and Output: 03/30/17 03/31/17 18:59 06:59 Intake Total 240 Balance 240 - Medications Medications: Current Medications Aspirin (Aspirin Chewable) 81 mg PO DAILY [facility] Cinacalcet (Sensipar) 30 mg PO DAILY [facility] Isosorbide Mononitrate (Imdur) 30 mg PO DAILY [facility] Last Admin: 03/30/17 21:26 Dose: 30 mg Lisinopril (Zestril) 10 mg PO DAILY [facility] Last Admin: 03/30/17 21:26 Dose: 10 mg Metoprolol Tartrate (Lopressor) 25 mg PO BID [facility] Oxycodone/Acetaminophen (Percocet 5/325 Mg Tab) 1 tab PO Q4H PRN PRN Reason: Pain, severe (8-10) Stop: 04/02/17 21:02 Last Admin: 03/31/17 02:50 Dose: 1 tab [facility]velamer [facility] Labs Labs: 03/30/17 16:13 03/30/17 16:13 PT 13.4 SECONDS (9.7-12.2) H 03/30/17 16:13 INR 1.2 03/30/17 16:13 APTT 32 SECONDS (21-34) 03/30/17 16:13 - Constitutional Appears: Well - Head Exam Head Exam: ATRAUMATIC - Eye Exam Eye Exam: Normal appearance - ENT Exam ENT Exam: Mucous Membranes Moist - Respiratory Exam Respiratory Exam: Clear to Ausculation Bilateral, NORMAL BREATHING PATTERN - Cardiovascular Exam Cardiovascular Exam: REGULAR RHYTHM, Murmur - GI/Abdominal Exam GI & Abdominal Exam: Soft, Normal Bowel Sounds - Exam External exam: NORMAL EXTERNAL EXAM - Extremities Exam Extremities Exam: Normal Inspection - Neurological Exam Neurological Exam: Alert, Awake, Oriented x3 - Psychiatric Exam Psychiatric exam: Agitated, Anxious - Skin Skin Exam: Dry, Intact Assessment and Plan (1) Inability to ambulate due to left knee Assessment & Plan: Pt denied syncope mechanical fall no cp or sob will have ortho eval and have medicine see and eval patient for better pain control continue dialysis continue chf meds Status: Acute (2) Joint swelling Status: Acute
--- NOTE | 2017-03-31 07:38 | CP.PCM.HP ---
<Chela Bartholomew - Last Filed: 03/31/17 13:38> History of Present Illness - History of Present Illness History of Present Illness: Medicine Note for Dr. Underwood CC: leg pain HPI: 31M with PMHx of ESRD on HD, HTN, asthma, secondary hyperparathyroidism, anemia of CKD, cardiomyopathy, and b/l patellar tendon rupture on 03/17 presented to the ER due to left knee pain. He states that he was lasr discharged from 03/30 for missing HD and for the knee pain. Patient reports he ruptured his tendons when he was standing up from the cough and felt severe pain and a "pop" at home on 03/17. He has been unable to move his legs since. Patient does not ambulate and wears knee braces and uses ice packs for pain relief. On this admission he states he was at dialysis on Friday 03/30 and the HD chair locked and when standing he felt a sharp pain in his left knee. He stated he did not hear a "pop" at this time. He reports the pain as localized to the knees bilaterally with the left being more painful and more swollen than the right. Patient states the pain in his left knee at first was only in the middle but now radiates to the left and up his thigh. Patient had an appointment with Dr. Diaz outpatient on April 04 but had to come in as he wants something done promptly. Patient denies chest pain, palpitations, sob, cough, abdominal pain, nausea, vomiting, bowel/bladder complaints, numbness/ tingling in his legs b/l. PMHx: ESRD on HD, HTN, asthma, secondary hyperparathyroidism, anemia of CKD, and cardiomyopathy PSHx: AICD 2016, Fistula on left arm for dialysis Meds: As per JAN Allergies: NKDA Soc Hx: denies tobacco, alcohol , and drug use. Lives with [employer] and works in [employer] FamHx: HTN PHx: Patient was last seen at 03/28 for missing HD after which he was discharged ROS: denies chest pain, palpitations, sob, cough, abdominal pain, nausea, vomiting, bowel/bladder complaints, numbness/tingling in his legs b/l. admits to pain and swelling in his knees b/l. Present on Admission - Present on Admission Any Indicators Present on Admission: No Review of Systems - Constitutional Constitutional: As Per HPI. absent: Chills, Fever - EENT Eyes: As Per HPI. absent: Change in Vision Ears: As Per HPI. absent: Dizziness Nose/Mouth/Throat: As Per HPI. absent: Sore Throat - Cardiovascular Cardiovascular: As Per HPI. absent: Chest Pain, Dyspnea, Dyspnea on Exertion, Palpitations - Respiratory Respiratory: As Per HPI. absent: Cough, Dyspnea, Dyspnea on Exertion, Chest Congestion - Gastrointestinal Gastrointestinal: As Per HPI. absent: Abdominal Pain, Constipation, Diarrhea, Nausea, Vomiting - Genitourinary Genitourinary: As Per HPI. absent: Dysuria, Hematuria, Pyuria - Musculoskeletal Musculoskeletal: As Per HPI, Joint Swelling (knees b/l). absent: Back Pain, Loss of Height, Numbness, Tingling Additional comments: pain knees b/l - Integumentary Integumentary: As Per HPI. absent: Rash - Neurological Neurological: As Per HPI. absent: Dizziness, Headaches, Tingling - Psychiatric Psychiatric: As Per HPI. absent: Anxiety, Depression - Endocrine Endocrine: As Per HPI. absent: Palpitations, Polydipsia, Polyuria - Hematologic/Lymphatic Hematologic: As Per HPI. absent: Easy Bleeding, Easy Bruising Past Patient History - Past Medical History & Family History Past Medical History?: Yes - Past Social History Smoking Status: Never Smoked - CARDIAC Hx Hypertension: Yes - PULMONARY Hx Asthma: Yes (last attack sep 2013) - NEUROLOGICAL Hx Neurological Disorder: No - HEENT Hx HEENT Problems: No - RENAL Date of Last Dialysis Treatment: 03/30/17 - ENDOCRINE/METABOLIC Hx Endocrine Disorders: Yes - HEMATOLOGICAL/ONCOLOGICAL Hx Blood Disorders: Yes Hx Blood Transfusions: Yes (2010) - INTEGUMENTARY Hx Dermatological Problems: No - MUSCULOSKELETAL/RHEUMATOLOGICAL Hx Falls: No - GASTROINTESTINAL Hx Gastrointestinal Disorders: No - GENITOURINARY/GYNECOLOGICAL Hx Genitourinary Disorders: Yes Other/Comment: dialysis pt.doesn't make urine - PSYCHIATRIC Hx Substance Use: No - SURGICAL HISTORY Hx Surgeries: Yes Hx Arteriovenous Shunt: Yes (left upper arm 2010) Hx Vascular Access Device: Yes (2010, removed 2 months later) - ANESTHESIA Hx Anesthesia: Yes Hx Anesthesia Reactions: No Hx Malignant Hyperthermia: No Meds Allergies/Adverse Reactions: Allergies Allergy/AdvReac Type Severity Reaction Status Date / Time No Known Allergies Allergy Verified 03/30/17 11:19 Physical Exam - Constitutional Appears: Well, Non-toxic, No Acute Distress - Head Exam Head Exam: ATRAUMATIC, NORMAL INSPECTION, NORMOCEPHALIC - Eye Exam Eye Exam: EOMI, Normal appearance, PERRL. absent: Conjunctival injection, Scleral icterus Pupil Exam: NORMAL ACCOMODATION - ENT Exam ENT Exam: Mucous Membranes Moist - Neck Exam Neck exam: Positive for: Full Rom, Normal Inspection. Negative for: Tenderness - Respiratory Exam Respiratory Exam: Clear to Auscultation Bilateral, NORMAL BREATHING PATTERN. absent: Accessory Muscle Use, Rales, Rhonchi, Wheezes, Respiratory Distress - Cardiovascular Exam Cardiovascular Exam: REGULAR RHYTHM, RRR, +S1, +S2. absent: Systolic Murmur - GI/Abdominal Exam GI & Abdominal Exam: Normal Bowel Sounds, Soft. absent: Firm, Guarding, Rigid, Tenderness - Extremities Exam Extremities exam: Positive for: joint swelling (knees b/l), normal capillary refill, tenderness (knees b/l), pedal pulses present. Negative for: full ROM, normal inspection, pedal edema Additional comments: b/l knee immobilizers in place with ice packs negative for decreased sensation pulses intact increased laxity of patella b/l - Back Exam Back exam: NORMAL INSPECTION. absent: rash noted - Neurological Exam Neurological exam: Alert, CN II-XII Intact, Oriented x3 - Psychiatric Exam Psychiatric exam: Normal Affect, Normal Mood - Skin Skin Exam: Dry, Intact, Normal Color, Warm Results - Vital Signs Recent Vital Signs: Last Vital Signs Temp 98.6 F 03/30/17 23:55 Pulse 104 H 03/31/17 00:30 Resp 18 03/30/17 23:55 BP 152/82 H 03/30/17 23:55 Pulse Ox 96 03/30/17 23:55 - Labs Result Diagrams: 03/31/17 11:42 03/31/17 11:42 Labs: Laboratory Results - last 24 hr 03/30/17 03/30/17 03/30/17 16:13 16:13 16:13 WBC 10.3 RBC 3.00 L Hgb 8.9 L Hct 26.5 L MCV 88.3 MCH 29.7 MCHC 33.6 RDW 16.7 H Plt Count 413 H D MPV 6.9 L Neut % (Auto) 82.9 H Lymph % (Auto) 4.7 L Hughes % (Auto) 8.8 Eos % (Auto) 2.7 Baso % (Auto) 0.9 Neut # 8.5 H Lymph # 0.5 L Hughes # 0.9 H Eos # 0.3 Baso # 0.1 Neutrophils % (Manual) 88 H Band Neutrophils % 2 Lymphocytes % (Manual) 8 L Monocytes % (Manual) 1 Eosinophils % (Manual) 1 Platelet Estimate Normal Hypochromasia (manual) Slight Anisocytosis (manual) Slight PT 13.4 H INR 1.2 APTT 32 Sodium 136 Potassium 6.2 H* Chloride 92 L Carbon Dioxide 32 H Anion Gap 18 BUN 30 H Creatinine 6.2 H Est GFR ( Amer) 13 Est GFR (Non-Af Amer) 10 Random Glucose 102 Calcium 8.3 L Total Bilirubin 2.4 H AST 72 H D ALT 11 L D Alkaline Phosphatase 600 H Total Creatine Kinase CK-MB (Mass) Troponin I 0.1450 H* Troponin I, Quant NT-Pro-B Natriuret Pep 57825 H Total Protein 8.5 H Albumin 4.1 Globulin 4.4 H Albumin/Globulin Ratio 0.9 L 03/30/17 22:56 WBC RBC Hgb Hct MCV MCH MCHC RDW Plt Count MPV Neut % (Auto) Lymph % (Auto) Hughes % (Auto) Eos % (Auto) Baso % (Auto) Neut # Lymph # Hughes # Eos # Baso # Neutrophils % (Manual) Band Neutrophils % Lymphocytes % (Manual) Monocytes % (Manual) Eosinophils % (Manual) Platelet Estimate Hypochromasia (manual) Anisocytosis (manual) PT INR APTT Sodium Potassium Chloride Carbon Dioxide Anion Gap BUN Creatinine Est GFR ( Amer) Est GFR (Non-Af Amer) Random Glucose Calcium Total Bilirubin AST ALT Alkaline Phosphatase Total Creatine Kinase 99 CK-MB (Mass) 0.29 Troponin I Troponin I, Quant 0.1910 H* NT-Pro-B Natriuret Pep Total Protein Albumin Globulin Albumin/Globulin Ratio Assessment & Plan - Assessment and Plan (Free Text) Assessment: 31M with PMHx of ESRD on HD, HTN, asthma, secondary hyperparathyroidism, anemia of CKD, cardiomyopathy, and b/l patellar tendon rupture on 03/17 presented to the ER due to left knee pain. Plan: Bilateral patellar tendon rupture -b/l immobilzers with ice pack in place -Percocet 5/325mg 1 tab po q4 prn pain severe -b/l knee x-ray 03/31: marked decrease in soft tissue swelling identified previously. Similar relationship of the talus to the femurs noted. No acute interval changes. -Dr. Finley orthopedics consulted ESRD on HD -Sensipar 30mg po daily -MWF schedule -Renal dialysis diet -Dr. Beth consulted HTN -ASA 81mg po daily -Imdur 30mg po daily -Lisinopril 10mg po daily -Lopressor 25mg po bid Asthma -Duoneb 3ml INH q6 PRN SOB Secondary hyperparathyroidism -Monitor outpatient Anemia of CKD -Monitor H&H PPX -Heparin 5000U SC Q12 -Pepcid 20mg po bid -SCD c/i -Renal dialysis diet -PT/OT Plan discussed with Dr. Kj Bartholomew PGY1 <Ivanna Underwood V - Last Filed: 03/31/17 19:54> Results - Vital Signs Recent Vital Signs: Last Vital Signs Temp 98.4 F 03/31/17 15:43 Pulse 95 H 03/31/17 16:00 Resp 18 03/31/17 15:43 BP 145/87 03/31/17 17:25 Pulse Ox 98 03/31/17 15:43 - Labs Result Diagrams: 03/31/17 11:42 03/31/17 11:42 Labs: Laboratory Results - last 24 hr 03/30/17 03/31/17 03/31/17 22:56 07:49 11:42 WBC 8.7 RBC 2.84 L Hgb 8.5 L Hct 25.4 L MCV 89.4 MCH 30.1 MCHC 33.6 RDW 16.5 H Plt Count 413 H MPV 6.9 L Neut % (Auto) 73.6 Lymph % (Auto) 8.5 L Hughes % (Auto) 8.8 Eos % (Auto) 8.3 H Baso % (Auto) 0.8 Neut # 6.4 Lymph # 0.7 L Hughes # 0.8 Eos # 0.7 Baso # 0.1 Neutrophils % (Manual) 78 H Lymphocytes % (Manual) 7 L Monocytes % (Manual) 7 Eosinophils % (Manual) 7 H Basophils % (Manual) 1 Toxic Granulation Present Platelet Estimate Slightly increased H Large Platelets Present Polychromasia Slight Hypochromasia (manual) Slight Anisocytosis (manual) Slight Sodium 137 Potassium 4.5 Chloride 91 L Carbon Dioxide 35 H Anion Gap 16 BUN 41 H Creatinine 8.7 H* D Est GFR ( Amer) 9 Est GFR (Non-Af Amer) 7 Random Glucose 87 Calcium 9.3 Phosphorus Magnesium Total Bilirubin AST ALT Alkaline Phosphatase Total Creatine Kinase 99 CK-MB (Mass) 0.29 Troponin I, Quant 0.1910 H* Total Protein Albumin Globulin Albumin/Globulin Ratio 03/31/17 11:42 WBC RBC Hgb Hct MCV MCH MCHC RDW Plt Count MPV Neut % (Auto) Lymph % (Auto) Hughes % (Auto) Eos % (Auto) Baso % (Auto) Neut # Lymph # Hughes # Eos # Baso # Neutrophils % (Manual) Lymphocytes % (Manual) Monocytes % (Manual) Eosinophils % (Manual) Basophils % (Manual) Toxic Granulation Platelet Estimate Large Platelets Polychromasia Hypochromasia (manual) Anisocytosis (manual) Sodium 138 Potassium 4.3 Chloride 91 L Carbon Dioxide 33 H Anion Gap 18 BUN 42 H Creatinine 9.1 H* Est GFR ( Amer) 8 Est GFR (Non-Af Amer) 7 Random Glucose 116 H Calcium 9.2 Phosphorus 6.4 H Magnesium 2.3 Total Bilirubin 1.6 H AST 51 ALT 27 Alkaline Phosphatase 559 H Total Creatine Kinase CK-MB (Mass) Troponin I, Quant Total Protein 7.2 Albumin 3.5 Globulin 3.8 Albumin/Globulin Ratio 0.9 L Attending/Attestation - Attestation I have personally seen and examined this patient.: Yes I have fully participated in the care of the patient.: Yes I have reviewed all pertinent clinical information: Yes Notes (Text): Patient seen, examined, and case discussed this morning with day-time resident. Patient transferred from private attending to hospitalist service, discussed with Dr. Skinner this morning. Patient reports upon completing his dialysis yesterday, he was sitting in his bed and reports the bed had not been locked, so he try to get up, he felt some thing off in his left knee. Patient reports he has had patellar tendon rupture since his last admission, but reports pain is over medial aspect of the knee usually. Patient reports knee pain changed from medial and lateral sides of left knee. patient has patella laxity and observable edema over the left knee more prominent compared to the right knee. Patient reports since last admission , he attempted to call the orthopedic office, and was told he was scheduled for surgery while in hospital but when he tried to schedule outpatient was told he wasnt. Patient reports he has not met the orthopedic and requests to see one. Patient reports since leaving the hospital he has been taking heparin shots because he was told to prevent further clots. Confirmed by review of EMR. Discussed with patient, denies chest pain, denies shortness of breathe, denies palpiations, denies abdominal pain, denies nausea, denies vomitting. Discussed with cardiology, patient is stable. Patient reports he completed his dialysis on Sunday and usually Sunday/Sunday /Sunday schedule. Assessment/Plan Bilateral patellar tendon rupture -b/l immobilzers with ice pack in place -Percocet 5/325mg 1 tab po q4 prn pain severe -b/l knee x-ray 03/31: marked decrease in soft tissue swelling identified previously. Similar relationship of the talus to the femurs noted. No acute interval changes. Patient has had prior knee xrays and CT scan from 03/17/17 -Dr. Finley orthopedics consulted-->help appreciated [facility] -Cardiology (Dr. Skinner) on board -Cardiac stable ESRD on HD -Sensipar 30mg po daily -MWF schedule -Renal dialysis diet -Dr. Beth, nephrology consulted HTN -ASA 81mg po daily -Imdur 30mg po daily -Lisinopril 10mg po daily -Lopressor 25mg po bid Asthma -Duoneb 3ml INH q6 PRN SOB -not in acute exacerbation Secondary hyperparathyroidism -Monitor outpatient Anemia of CKD -Monitor H&H PPX -Heparin 5000U SC Q12 -Pepcid 20mg po bid -SCD c/i -Renal dialysis diet -PT/OT eval
[2017-03-31 08:07] LABS: POTASSIUM 4.5 mmol/L (3.6-5.2)
[2017-03-31 08:10] LABS: CALCIUM 9.3 mg/dl (8.6-10.4)
[2017-03-31 11:54] LABS: BASO # 0.1 K/uL (0.0-0.2); BASO % 0.8 % (0.0-2.0); EOS # 0.7 K/uL (0.0-0.7); EOS % 8.3 % (0.0-4.0); HEMATOCRIT 25.4 % (35.0-51.0); LYMPH # 0.7 K/uL (1.0-4.3); LYMPH % 8.5 % (20.0-40.0); MEAN CELL VOLUME 89.4 fL (80.0-94.0); MEAN CORPUSCULAR HEMOGLOBIN 30.1 pg (27.0-31.0); MEAN CORPUSCULAR HGB CONC 33.6 g/dL (33.0-37.0); MEAN PLATELET VOLUME 6.9 fL (7.2-11.7); MONO # 0.8 K/uL (0.0-0.8); MONO % 8.8 % (0.0-10.0); PLATELET COUNT 413 K/uL (130-400); RED CELL DISTRIBUTION WIDTH 16.5 % (11.5-14.5); WHITE BLOOD COUNT 8.7 K/uL (4.8-10.8)
[2017-03-31 12:09] LABS: POTASSIUM 4.3 mmol/L (3.6-5.2)
[2017-03-31 12:11] LABS: ALB/GLOB RATIO 0.9 (1.0-2.1); BILIRUBIN,TOTAL 1.6 mg/dL (0.2-1.3); TOTAL PROTEIN 7.2 g/dL (6.3-8.3)
[2017-03-31 12:12] LABS: CALCIUM 9.2 mg/dl (8.6-10.4); MAGNESIUM 2.3 mg/dL (1.6-2.3); PHOSPHOROUS 6.4 mg/dL (2.5-4.5)
--- NOTE | 2017-03-31 12:18 | RAD ---
PROCEDURE: Bilateral Knee Radiographs. HISTORY: b/l knee pain COMPARISON: None. FINDINGS: Right Knee: Decrease in soft tissue swelling apparent on the prior study. Stable position/configuration of subluxed right patella relative to the femur. Incomplete assessment left patella of relative to the femur this is also subluxed. OTHER FINDINGS: None. IMPRESSION: Marked decrease in soft tissue swelling identified previously. Similar relationship of the talus to the femurs noted. No acute interval changes.
[2017-03-31 12:25] LABS: BASOPHIL 1 % (0-2); EOSINOPHIL 7 % (0-4); NEUTROPHIL 78 % (50-75); TOTAL CELLS COUNTED 100
[2017-03-31 12:35] LABS: LARGE PLATELETS PRESENT
[2017-03-31] MEDS ORDERED: Albuterol-Ipratrop 3 mg / 0.5 (3 ml) UD INH PRN (13:52)
--- NOTE | 2017-03-31 19:58 | CP.PCM.PN ---
Subjective - Date & Time of Evaluation Date of Evaluation: 03/31/17 Time of Evaluation: 14:20 - Subjective Subjective: plan hd mon surg on knees tue consult dictated Objective - Vital Signs/Intake and Output Vital Signs (last 24 hours): Temp Pulse Resp BP Pulse Ox 98.4 F 95 H 18 145/87 98 03/31/17 15:43 03/31/17 16:00 03/31/17 15:43 03/31/17 17:25 03/31/17 15:43 Intake and Output: 03/31/17 04/01/17 18:59 06:59 Intake Total 480 Balance 480 - Medications Medications: Current Medications Albuterol/Ipratropium (Duoneb 3 Mg/0.5 Mg (3 Ml) Ud) 3 ml INH RQ6 PRN PRN Reason: Shortness of Breath Aspirin (Aspirin Chewable) 81 mg PO DAILY [facility] Last Admin: 03/31/17 11:08 Dose: 81 mg Cinacalcet (Sensipar) 30 mg PO DAILY [facility] Last Admin: 03/31/17 11:08 Dose: 30 mg Famotidine (Pepcid) 20 mg PO DAILY [facility] Last Admin: 03/31/17 14:20 Dose: 20 mg Heparin Sodium (Porcine) (Heparin) 5,000 units SC Q12 [facility] Last Admin: 03/31/17 11:08 Dose: 5,000 units Isosorbide Mononitrate (Imdur) 30 mg PO DAILY [facility] Last Admin: 03/31/17 11:10 Dose: 30 mg Lisinopril (Zestril) 10 mg PO DAILY [facility] Last Admin: 03/31/17 11:08 Dose: 10 mg Metoprolol Tartrate (Lopressor) 25 mg PO BID [facility] Last Admin: 03/31/17 17:25 Dose: 25 mg Oxycodone/Acetaminophen (Percocet 5/325 Mg Tab) 1 tab PO Q4H PRN PRN Reason: Pain, severe (8-10) Stop: 04/02/17 21:02 Last Admin: 03/31/17 19:05 Dose: 1 tab Sevelamer Carbonate ([facility]) [facility] Last Admin: 03/31/17 17:25 Dose: 800 mg - Labs Labs: 03/31/17 11:42 03/31/17 11:42 PT 13.4 SECONDS (9.7-12.2) H 03/30/17 16:13 INR 1.2 03/30/17 16:13 APTT 32 SECONDS (21-34) 03/30/17 16:13 Assessment and Plan - Assessment and Plan (Free Text) Assessment: 31M with PMHx of ESRD on HD, HTN, asthma, secondary hyperparathyroidism, anemia of CKD, cardiomyopathy, and b/l patellar tendon rupture on 03/17 presented to the ER due to left knee pain. Plan: Bilateral patellar tendon rupture -b/l immobilzers with ice pack in place -Percocet 5/325mg 1 tab po q4 prn pain severe -b/l knee x-ray 03/31: marked decrease in soft tissue swelling identified previously. Similar relationship of the talus to the femurs noted. No acute interval changes. -Dr. Finley orthopedics consulted ESRD on HD -Sensipar 30mg po daily -MWF schedule -Renal dialysis diet -Dr. Beth consulted HTN -ASA 81mg po daily -Imdur 30mg po daily -Lisinopril 10mg po daily -Lopressor 25mg po bid Asthma -Duoneb 3ml INH q6 PRN SOB Secondary hyperparathyroidism -Monitor outpatient Anemia of CKD -Monitor H&H PPX -Heparin 5000U SC Q12 -Pepcid 20mg po bid -SCD c/i -Renal dialysis diet -PT/OT Plan discussed with Dr. Kj Bartholomew PGY1
--- NOTE | 2017-03-31 21:06 | CON ---
DATE: 03/31/2017 This 31-year-old black male is being seen in renal consultation because of chronic renal failure, end -stage renal disease and dialysis dependence. He is on dialysis Sunday, Sunday and Sunday at the [facility] located in [place]. His last treatment was early on the day of admission. He had his full treatment, but he had a problem getting up from the chair and he reinjured his knees that had been in braces because of bilateral patellar ligament tears. His tear was consistent with l ongstanding history of severe secondary hyperparathyroidism for which we have been trying to get him to surgical intervention for more than 2-3 years, but to no avail. He has had some of the highest PT H levels I have had in my 34 years of practice, sometimes between 3000 and 4000. The patient is well known to us and followed both in the office and in the dialysis center. MEDICATIONS: Includes Renvela 800 three tablets 3 times a day with meals and also with snacks, sodiu m bicarbonate 650 twice a day, isosorbide 60 once a day, renal caps multivitamin once a day, clonidin e 0.1 in the a.m. and 2 tablets in the p.m., amlodipine 10, isosorbide 60 in the afternoon. He was supposed to have a parathyroid surgery with Dr. Hodge in [place]. He was asked to have a trans plant cardiac clearance done through [facility] in [facility], which had been ongoing o maycol the course of the last 3 or 4 years. He has not followed up correctly to have his secondary hype rparathyroidism treated surgically by surgical removal. The patient was originally seen by me 01/2009 to the request of Dr. Demarco Berman from [place], his [facility] physician at that time. At that time, he had significant azotemia, with serum creatinine of 2.88, MDRD clearance of only 34 mL and stage III chronic kidney disease on presentation, he was o nly 23 years old, and significant accelerated or malignant hypertension. He has had some hospital st ays with systolics well over 200. In 01/2009, he was recommended to have admission to the hospital t he declined prior to his initial evaluation. There was no history of nephritis, nephrosis, Bright' s disease, scarlet fever, diphtheria or rheumatic heart disease. He denied chronic urinary tract inf ection or bladder infections, cystitis or pyelonephritis. He denies frequency, urgency or hesitancy. There was a significant history of kidney disease, an aunt had kidney disease who was on dialysis. The whole family has hypertension and his mother also had diabetes. During his hospital physical ba ck in 2005, he was told that blood pressure was high. He has had significant microalbuminuria in the past. A workup and evaluation was initiated. In 2008 we discussed the need for a kidney biopsy at that time. Unfortunately, the patient did not follow up with any of the recommendations and did not return for further treatment. He was then again seen in 2010 with a creatinine of 12, and a blood pr essure systolic of 204 and was placed in dialysis about that time. Since 2014, we have been danny hinkle encouraging him to have parathyroid surgery. He has had some of the highest PTH levels as noted. In 2012 he was also seen here at [facility] [place] when he presented with hypertension, in 2012 he presented w ith shortness of breath and hypertension and in 2012 he had an abscess in his right hand that was inf ected and had an incision and drainage done by Dr. Ferguson at that time and placed on antibiotics an d he improved. SOCIAL HISTORY: Born in 1984 in [place]. A nonsmoker, single, has a girlfriend. No alcohol, no IV drug use or abuse. FAMILY HISTORY: As stated above. REVIEW OF SYSTEMS: A 12-point review of systems was negative except as outlined above. PHYSICAL EXAMINATION: GENERAL: Shows a well-developed, well-nourished gentleman, in no acute distress. HEENT: Head is normocephalic, atraumatic. Eyes PERRLA, EOMs, unable to visualize fundi. NECK: Supple. Neck veins flat, fill from above, no bruit. Thyroid not enlarged. THORAX: Symmetrical. LUNGS: Decreased breath sounds, but clear to percussion and auscultation. HEART: PMI in the sixth left intercostal space, left of the midclavicular line. There is a summatio n gallop and a systolic murmur. No rub. ABDOMEN: Soft, nontender, no gross organomegaly. No mass, no bruit. EXTREMITIES: Braces on his knees, trace edema. Pulses are equal and intact. NEUROLOGIC: Oriented to time, place and person. Gross motor, sensory and coordination within normal limits. IMPRESSION: Chronic renal failure, end-stage renal disease in a 31-year-old gentleman with severe se condary hyperparathyroidism, ruptured patellar tendons and probably dilated cardiomyopathy. PLAN: Continue HD treatments Sunday, Sunday and Sunday. Surgical intervention on his knees is pl anned on Sunday, Dr. Beth and I will follow with you. Thank you for involving me in the patient's care. Toro Meeks MD cc: [id number] TT: 03/31/2017 21:05:53 Confirmation # [id number] Dictation # [id number] dn
[2017-04-01] MEDS: Oxycodone/Acetaminophen 5/325 mg Tab PO PRN ×5 (05:03→21:32)
--- NOTE | 2017-04-01 06:56 | CP.PCM.PN ---
Subjective - Date & Time of Evaluation Date of Evaluation: 04/01/17 Time of Evaluation: 06:50 - Subjective Subjective: Pt tolerating pain meds laying in bed Objective - Vital Signs/Intake and Output Vital Signs (last 24 hours): Temp Pulse Resp BP Pulse Ox 98.6 F 90 20 150/90 97 03/31/17 23:20 04/01/17 00:45 03/31/17 23:20 03/31/17 23:20 03/31/17 23:20 Intake and Output: 03/31/17 04/01/17 18:59 06:59 Intake Total 480 Balance 480 - Medications Medications: Current Medications Albuterol/Ipratropium (Duoneb 3 Mg/0.5 Mg (3 Ml) Ud) 3 ml INH RQ6 PRN PRN Reason: Shortness of Breath Aspirin (Aspirin Chewable) 81 mg PO DAILY [facility] Last Admin: 03/31/17 11:08 Dose: 81 mg Cinacalcet (Sensipar) 30 mg PO DAILY [facility] Last Admin: 03/31/17 11:08 Dose: 30 mg Famotidine (Pepcid) 20 mg PO DAILY [facility] Last Admin: 03/31/17 14:20 Dose: 20 mg Heparin Sodium (Porcine) (Heparin) 5,000 units SC Q12 [facility] Last Admin: 03/31/17 21:41 Dose: 5,000 units Isosorbide Mononitrate (Imdur) 30 mg PO DAILY [facility] Last Admin: 03/31/17 11:10 Dose: 30 mg Lisinopril (Zestril) 10 mg PO DAILY [facility] Last Admin: 03/31/17 11:08 Dose: 10 mg Metoprolol Tartrate (Lopressor) 25 mg PO BID [facility] Last Admin: 03/31/17 17:25 Dose: 25 mg Oxycodone/Acetaminophen (Percocet 5/325 Mg Tab) 1 tab PO Q4H PRN PRN Reason: Pain, severe (8-10) Stop: 04/02/17 21:02 Last Admin: 04/01/17 05:03 Dose: 1 tab Sevelamer Carbonate (Renvela) 2,400 mg PO TIDCC [facility] - Labs Labs: 03/31/17 11:42 03/31/17 11:42 PT 13.4 SECONDS (9.7-12.2) H 03/30/17 16:13 INR 1.2 03/30/17 16:13 APTT 32 SECONDS (21-34) 03/30/17 16:13 - Constitutional Appears: Well - Head Exam Head Exam: ATRAUMATIC - Eye Exam Eye Exam: Normal appearance - ENT Exam ENT Exam: Mucous Membranes Moist - Respiratory Exam Respiratory Exam: Clear to Ausculation Bilateral, NORMAL BREATHING PATTERN. absent: Rales - Cardiovascular Exam Cardiovascular Exam: REGULAR RHYTHM, +S1, +S2, Murmur - GI/Abdominal Exam GI & Abdominal Exam: Soft, Normal Bowel Sounds - Exam External exam: NORMAL EXTERNAL EXAM. absent: Erythema - Extremities Exam Additional comments: B/L knee immobilizers - Neurological Exam Neurological Exam: Alert, Awake - Psychiatric Exam Psychiatric exam: Normal Mood - Skin Skin Exam: Warm Assessment and Plan (1) Inability to ambulate due to left knee Assessment & Plan: Pt feeling better pain under control for surgery Status: Acute
--- NOTE | 2017-04-01 08:05 | CP.PCM.PN ---
<PumaChela - Last Filed: 04/01/17 13:06> Subjective - Date & Time of Evaluation Date of Evaluation: 04/01/17 Time of Evaluation: :30 - Subjective Subjective: PGY1 Medicine note for Dr. Underwood Patient seen and examined at bedside. Patient complaining of pain in his knees b /l and was requesting pain meds which he was due for. He is aware he is for OR on Tuesday 04/03. Patient denies fever, chills, chest pain, palpitations, SOB, cough, abd pain, nausea, vomiting, bowel/bladder complaints. He is eating well. For HD tomorrow 04/02 as per [facility] schedule. Objective - Vital Signs/Intake and Output Vital Signs (last 24 hours): Temp Pulse Resp BP Pulse Ox 98.6 F 90 20 150/90 97 03/31/17 23:20 04/01/17 00:45 03/31/17 23:20 03/31/17 23:20 03/31/17 23:20 Intake and Output: 04/01/17 04/01/17 06:59 18:59 Intake Total 500 Balance 500 - Medications Medications: Current Medications Albuterol/Ipratropium (Duoneb 3 Mg/0.5 Mg (3 Ml) Ud) 3 ml INH RQ6 PRN PRN Reason: Shortness of Breath Aspirin (Aspirin Chewable) 81 mg PO DAILY [facility] Last Admin: 03/31/17 11:08 Dose: 81 mg Cinacalcet (Sensipar) 30 mg PO DAILY [facility] Last Admin: 03/31/17 11:08 Dose: 30 mg Famotidine (Pepcid) 20 mg PO DAILY [facility] Last Admin: 03/31/17 14:20 Dose: 20 mg Heparin Sodium (Porcine) (Heparin) 5,000 units SC Q12 [facility] Last Admin: 03/31/17 21:41 Dose: 5,000 units Isosorbide Mononitrate (Imdur) 30 mg PO DAILY [facility] Last Admin: 03/31/17 11:10 Dose: 30 mg Lisinopril (Zestril) 10 mg PO DAILY [facility] Last Admin: 03/31/17 11:08 Dose: 10 mg Metoprolol Tartrate (Lopressor) 25 mg PO BID [facility] Last Admin: 03/31/17 17:25 Dose: 25 mg Morphine Sulfate (Morphine) 1 mg IV Q6 PRN PRN Reason: Pain, severe (8-10) Last Admin: 04/01/17 07:32 Dose: 1 mg Oxycodone/Acetaminophen (Percocet 5/325 Mg Tab) 1 tab PO Q4H PRN PRN Reason: Pain, severe (8-10) Stop: 04/02/17 21:02 Last Admin: 04/01/17 05:03 Dose: 1 tab Sevelamer Carbonate (Renvela) 2,400 mg PO T[facility]CC [facility] - Labs Labs: 03/31/17 11:42 03/31/17 11:42 PT 13.4 SECONDS (9.7-12.2) H 03/30/17 16:13 INR 1.2 03/30/17 16:13 APTT 32 SECONDS (21-34) 03/30/17 16:13 - Constitutional Appears: Non-toxic, No Acute Distress - Head Exam Head Exam: NORMAL INSPECTION - Eye Exam Eye Exam: Normal appearance. absent: Conjunctival injection, Scleral icterus - ENT Exam ENT Exam: Mucous Membranes Moist - Neck Exam Neck Exam: Full ROM, Normal Inspection. absent: Tenderness - Respiratory Exam Respiratory Exam: Clear to Ausculation Bilateral, NORMAL BREATHING PATTERN. absent: Accessory Muscle Use, Rales, Rhonchi, Wheezes, Respiratory Distress - Cardiovascular Exam Cardiovascular Exam: REGULAR RHYTHM, RRR, +S1, +S2 - GI/Abdominal Exam GI & Abdominal Exam: Soft, Normal Bowel Sounds. absent: Firm, Guarding, Rigid, Tenderness - Extremities Exam Extremities Exam: Joint Swelling (knees b/l), Normal Capillary Refill, Tenderness (knees b/l) Additional comments: b/l knee immobilizers in place with ice packs negative for decreased sensation pulses intact increased laxity of patella b/l LUE fistulas noted - Back Exam Back Exam: NORMAL INSPECTION. absent: rash noted - Neurological Exam Neurological Exam: Alert, Awake, Oriented x3 - Psychiatric Exam Psychiatric exam: Normal Affect, Normal Mood - Skin Skin Exam: Dry, Intact, Normal Color, Warm Assessment and Plan - Assessment and Plan (Free Text) Assessment: 31M with PMHx of ESRD on HD, HTN, asthma, secondary hyperparathyroidism, anemia of CKD, cardiomyopathy, and b/l patellar tendon rupture on 03/17 presented to the ER due to left knee pain. Plan: Bilateral patellar tendon rupture -b/l immobilzers with ice pack in place -Percocet 5/325mg 2 tab po q4 prn pain severe -Percocet 5/325mg 1 tab po q4 prn moderate pain -b/l knee x-ray 03/31: marked decrease in soft tissue swelling identified previously. Similar relationship of the talus to the femurs noted. No acute interval changes. Patient has had prior knee xrays and CT scan from 03/17/17 -Dr. Finley orthopedics -Patient for OR Tuesday 04/03 End stage renal disease on HD -Sensipar 30mg po daily -MWF schedule -Renal dialysis diet -Dr. Beth, nephrology Hypertension -ASA 81mg po daily -Imdur 30mg po daily -Lisinopril 10mg po daily -Lopressor 25mg po bid Hx of Asthma -Duoneb 3ml INH q6 PRN SOB Secondary hyperparathyroidism -Monitor outpatient Anemia of CKD -Monitor H&H -Hgb 8.5 Hct 26.3 this AM PPX -Heparin 5000U SC Q12 -Pepcid 20mg po daily as per renal dose -SCD c/i -Renal dialysis diet -PT/OT eval Plan discussed with Dr. Kj Bartholomew PGY1 <Ivanna Underwood V - Last Filed: 04/01/17 22:10> Objective - Vital Signs/Intake and Output Vital Signs (last 24 hours): Temp Pulse Resp BP Pulse Ox 98.4 F 99 H 20 164/104 H 97 04/01/17 07:27 04/01/17 08:00 04/01/17 07:27 04/01/17 17:30 04/01/17 07:27 - Medications Medications: Current Medications Albuterol/Ipratropium (Duoneb 3 Mg/0.5 Mg (3 Ml) Ud) 3 ml INH RQ6 PRN PRN Reason: Shortness of Breath Aspirin (Aspirin Chewable) 81 mg PO DAILY [facility] Last Admin: 04/01/17 09:19 Dose: 81 mg Cinacalcet (Sensipar) 30 mg PO DAILY [facility] Last Admin: 04/01/17 09:24 Dose: 30 mg Famotidine (Pepcid) 20 mg PO DAILY [facility] Last Admin: 04/01/17 09:18 Dose: 20 mg Heparin Sodium (Porcine) (Heparin) 5,000 units SC Q12 [facility] Last Admin: 04/01/17 21:18 Dose: 5,000 units Isosorbide Mononitrate (Imdur) 30 mg PO DAILY [facility] Last Admin: 04/01/17 09:24 Dose: 30 mg Lisinopril (Zestril) 10 mg PO DAILY [facility] Last Admin: 04/01/17 09:24 Dose: 10 mg Metoprolol Tartrate (Lopressor) 25 mg PO BID [facility] Last Admin: 04/01/17 17:30 Dose: 25 mg Oxycodone/Acetaminophen (Percocet 5/325 Mg Tab) 1 tab PO Q4H PRN PRN Reason: PAIN, MODERATE (4-7) Stop: 04/02/17 21:02 Last Admin: 04/01/17 21:32 Dose: 1 tab Oxycodone/Acetaminophen (Percocet 5/325 Mg Tab) 2 tab PO Q4H PRN PRN Reason: Pain, severe (8-10) Stop: 04/04/17 10:02 Last Admin: 04/01/17 17:30 Dose: 2 tab Sevelamer Carbonate (Renvela) 2,400 mg PO TIDCC [facility] Last Admin: 04/01/17 17:34 Dose: Not Given - Labs Labs: 04/01/17 11:44 04/01/17 11:44 PT 13.4 SECONDS (9.7-12.2) H 03/30/17 16:13 INR 1.2 03/30/17 16:13 APTT 32 SECONDS (21-34) 03/30/17 16:13 Attending/Attestation - Attestation I have personally seen and examined this patient.: Yes I have fully participated in the care of the patient.: Yes I have reviewed all pertinent clinical information, including history, physical exam and plan: Yes Notes (Text): Patient seen, examined, and case discussed this morning with day-time resident. Patient seen this morning, reporting exquiste knee pain refractory to Morphine IV, requesting Percocet. Per patient, orthopedic has scheduled him for surgery for this 04/03/17. Patient scheduled for dialysis tomorrow, his normal dialysis day. Patient on review of bloodwork exhibits elevated white count, will monitor, and blood cultures ordered. Appreciate nephrology, orthopedic and cardiology consult recommendations. Will follow-up with cardiology regarding cardiac clearance.. Assessment/Plan 1) Bilateral patellar tendon rupture -b/l immobilzers with ice pack in place -Percocet 5/325mg 1 tab po q4 prn pain severe -b/l knee x-ray 03/31: marked decrease in soft tissue swelling identified previously. Similar relationship of the talus to the femurs noted. No acute interval changes. Patient has had prior knee xrays and CT scan from 03/17/17 -Dr. Finley orthopedics consulted-->help appreciated -Dr. Breaux cardiology-->follow-up for cardiac clearance 2) Non-STEMI -Cardiology (Dr. Skinner) on board -Cardiac stable -held aspirin in anticipation for surgery this upcoming Sunday 3) ESRD on HD -Sensipar 30mg po daily -MWF schedule -Renal dialysis diet -Dr. Beth, nephrology consulted 4) HTN -Imdur 30mg po daily -Lisinopril 10mg po daily -Lopressor 25mg po bid -Dialysis M/W/F -also influenced by pain 5) Asthma -Duoneb 3ml INH q6 PRN SOB -not in acute exacerbation 6) Secondary hyperparathyroidism -appreciated review from nephrology the severity of hyperparathyroidism 7) Anemia of CKD -Monitor H&H 8) PPX -Heparin 5000U SC Q12-->will hold tomorrow in anticipation for Surgery on Sunday -Pepcid 20mg po bid -SCD c/i -Renal dialysis diet -PT/OT eval
[2017-04-01] MEDS ORDERED: Morphine 4 MG/ML VIAL IV PRN (08:24)
--- NOTE | 2017-04-01 09:18 | CON ---
DATE: 03/31/2017 REASON FOR CONSULTATION: Bilateral patellar tendon rupture. HISTORY OF PRESENT ILLNESS: A 31-year-old male with multiple medical comorbidities including end-sta ge renal disease, hypertension, hemodialysis, asthma, secondary hyperparathyroidism, anemia, cardiomy opathy. The patient sustained patellar tendon rupture on 03/17/2017 when he was trying to stand up fr om a seated position. He felt a loud pop in both his knees, was unable to ambulate. The patient pre sented to the Emergency Room for continued pain and swelling of the knees. Recently had another slip and fall and landing on his left knee. The patient is wearing a knee braces, however, unable to amb ulate due to his injuries. He reports pain bilaterally, left being worse than the right, with swelli ng. PHYSICAL EXAMINATION: EXTREMITIES: In bilateral knees, there is palpable gap over the patellar tendon insertion area. Inc reased swelling of the left knee as compared to the right. The patient cannot straight leg raise bot h knees. Range of motion passive 0-45 degrees limited due to pain and swelling. No varus valgus ins tability. X-rays of bilateral knees were seen and reviewed, show patella jaymie of both knees consistent with pat richard tendon rupture. Otherwise, the knee joint is well aligned and congruent. ASSESSMENT: Bilateral patellar tendon rupture, most likely secondary to metabolic disorder. PLAN: I discussed the above findings with the patient and his family. I recommended surgical fixati on of both his patellar tendons. There is a high risk for re-tearing due to his comorbidities. The patient understands the risks of surgery, which include bleeding, infection, tendon, nerve, vessel in jury, instability, chronic pain, potential need for additional surgery in the future. We will procee d with surgery on Sunday pending preoperative clearance. Jonathan Finley M.D. cc: [id number] TT: 04/01/2017 09:18:13 Confirmation # [id number] Dictation # [id number] en
[2017-04-01 12:01] LABS: BASO # 0.1 K/uL (0.0-0.2); BASO % 0.7 % (0.0-2.0); EOS # 0.2 K/uL (0.0-0.7); EOS % 1.4 % (0.0-4.0); HEMATOCRIT 26.3 % (35.0-51.0); LYMPH # 0.6 K/uL (1.0-4.3); LYMPH % 4.2 % (20.0-40.0); MEAN CORPUSCULAR HEMOGLOBIN 29.2 pg (27.0-31.0); MEAN CORPUSCULAR HGB CONC 32.4 g/dL (33.0-37.0); MEAN PLATELET VOLUME 7.2 fL (7.2-11.7); MONO # 0.9 K/uL (0.0-0.8); MONO % 6.9 % (0.0-10.0); PLATELET COUNT 478 K/uL (130-400); WHITE BLOOD COUNT 13.1 K/uL (4.8-10.8)
[2017-04-01 12:02] LABS: POTASSIUM 4.8 mmol/L (3.6-5.2)
[2017-04-01 12:04] LABS: CALCIUM 9.2 mg/dl (8.6-10.4); PHOSPHOROUS 6.3 mg/dL (2.5-4.5); TOTAL PROTEIN 7.7 g/dL (6.3-8.3)
[2017-04-01 12:05] LABS: MAGNESIUM 2.5 mg/dL (1.6-2.3)
[2017-04-01 12:53] LABS: EOSINOPHIL 1 % (0-4); METAMYELOCYTE 1 % (0-0); NEUTROPHIL 86 % (50-75); TOTAL CELLS COUNTED 100
[2017-04-02] MEDS: Oxycodone/Acetaminophen 5/325 mg Tab PO PRN ×5 (01:53→20:08)
[2017-04-02 07:33] LABS: BILIRUBIN,TOTAL 1.7 mg/dL (0.2-1.3); TOTAL PROTEIN 7.6 g/dL (6.3-8.3)
[2017-04-02 07:34] LABS: CALCIUM 9.6 mg/dl (8.6-10.4); MAGNESIUM 2.4 mg/dL (1.6-2.3); PHOSPHOROUS 6.9 mg/dL (2.5-4.5)
[2017-04-02 07:40] LABS: BASO # 0.1 K/uL (0.0-0.2); BASO % 0.8 % (0.0-2.0); EOS # 0.4 K/uL (0.0-0.7); EOS % 3.7 % (0.0-4.0); HEMATOCRIT 23.8 % (35.0-51.0); LYMPH # 1.1 K/uL (1.0-4.3); MEAN CELL VOLUME 88.1 fL (80.0-94.0); MEAN CORPUSCULAR HEMOGLOBIN 29.8 pg (27.0-31.0); MEAN CORPUSCULAR HGB CONC 33.8 g/dL (33.0-37.0); MEAN PLATELET VOLUME 7.1 fL (7.2-11.7); MONO # 0.8 K/uL (0.0-0.8); MONO % 7.1 % (0.0-10.0); NRBC % 0.1 % (0.0-2.0); WHITE BLOOD COUNT 11.2 K/uL (4.8-10.8)
--- NOTE | 2017-04-02 07:54 | CP.PCM.PN ---
Subjective - Date & Time of Evaluation Date of Evaluation: 04/02/17 Time of Evaluation: 07:10 - Subjective Subjective: Pt no cp no sob tolerating PO Objective - Vital Signs/Intake and Output Vital Signs (last 24 hours): Temp Pulse Resp BP Pulse Ox 98.0 F 105 H 20 163/96 H 97 04/01/17 23:40 04/02/17 04:08 04/01/17 23:40 04/01/17 23:40 04/01/17 23:40 Intake and Output: 04/02/17 04/02/17 06:59 18:59 Intake Total 150 Balance 150 - Medications Medications: Current Medications Albuterol/Ipratropium (Duoneb 3 Mg/0.5 Mg (3 Ml) Ud) 3 ml INH RQ6 PRN PRN Reason: Shortness of Breath Aspirin (Aspirin Chewable) 81 mg PO DAILY [facility] Last Admin: 04/01/17 09:19 Dose: 81 mg Cinacalcet (Sensipar) 30 mg PO DAILY [facility] Last Admin: 04/01/17 09:24 Dose: 30 mg Famotidine (Pepcid) 20 mg PO DAILY [facility] Last Admin: 04/01/17 09:18 Dose: 20 mg Heparin Sodium (Porcine) (Heparin) 5,000 units SC Q12 [facility] Last Admin: 04/01/17 21:18 Dose: 5,000 units Isosorbide Mononitrate (Imdur) 30 mg PO DAILY [facility] Last Admin: 04/01/17 09:24 Dose: 30 mg Lisinopril (Zestril) 10 mg PO DAILY [facility] Last Admin: 04/01/17 09:24 Dose: 10 mg Metoprolol Tartrate (Lopressor) 25 mg PO BID [facility] Last Admin: 04/01/17 17:30 Dose: 25 mg Oxycodone/Acetaminophen (Percocet 5/325 Mg Tab) 1 tab PO Q4H PRN PRN Reason: PAIN, MODERATE (4-7) Stop: 04/02/17 21:02 Last Admin: 04/01/17 21:32 Dose: 1 tab Oxycodone/Acetaminophen (Percocet 5/325 Mg Tab) 2 tab PO Q4H PRN PRN Reason: Pain, severe (8-10) Stop: 04/04/17 10:02 Last Admin: 04/02/17 01:53 Dose: 2 tab Sevelamer Carbonate (Renvela) 2,400 mg PO TIDCC [facility] Last Admin: 04/01/17 17:34 Dose: Not Given - Labs Labs: 04/02/17 07:11 04/01/17 11:44 PT 13.4 SECONDS (9.7-12.2) H 03/30/17 16:13 INR 1.2 03/30/17 16:13 APTT 32 SECONDS (21-34) 03/30/17 16:13 - Constitutional Appears: No Acute Distress - Eye Exam Eye Exam: Normal appearance - ENT Exam ENT Exam: Mucous Membranes Moist - Respiratory Exam Respiratory Exam: NORMAL BREATHING PATTERN. absent: Wheezes - Cardiovascular Exam Cardiovascular Exam: REGULAR RHYTHM - GI/Abdominal Exam GI & Abdominal Exam: Normal Bowel Sounds - Extremities Exam Extremities Exam: Normal Inspection Additional comments: b/l knee immobilizers - Neurological Exam Neurological Exam: Awake Assessment and Plan (1) Dyspnea Assessment & Plan: Continue chf meds and dialysis for fluid removal surgery to repair tendon b/l rupture Status: Acute (2) Inability to ambulate due to left knee Status: Acute (3) Patellar tendon rupture Status: Acute
[2017-04-02 08:10] LABS: POTASSIUM 6.1 mmol/L (3.6-5.2)
[2017-04-02] MEDS: Epoetin Alfa 10,000 unit/ml Dialysis IV SCH (13:15)
--- NOTE | 2017-04-02 15:20 | CP.PCM.PN ---
Subjective - Date & Time of Evaluation Date of Evaluation: 04/02/17 Time of Evaluation: 15:00 - Subjective Subjective: Medical Attending Note: Follow-up: Patient seen and examined at bedside post-dialysis. Discussed with orthopedic, patient is scheduled for OR tomorrow. Patient is type and cross 1 unit of PRBC, given during dialysis today. Discussed with cardiology, patient is scheduled for OR tomorrow Patient denies fever, denies chills, denies shortness of breathe, denies cough, denies chest pain, denies abdominal pain, reports adequate bowel movement, reports pain bilateral knees (Left greater than right) but manageable with percocet. patient reports Morphine IV does not help him. Objective - Vital Signs/Intake and Output Vital Signs (last 24 hours): Temp Pulse Resp BP Pulse Ox 98.1 F 102 H 16 149/112 H 96 04/02/17 14:10 04/02/17 14:47 04/02/17 14:47 04/02/17 14:47 04/02/17 14:10 Intake and Output: 04/02/17 04/02/17 06:59 18:59 Intake Total 150 355 Balance 150 355 - Medications Medications: Current Medications Albuterol/Ipratropium (Duoneb 3 Mg/0.5 Mg (3 Ml) Ud) 3 ml INH RQ6 PRN PRN Reason: Shortness of Breath Aspirin (Aspirin Chewable) 81 mg PO DAILY [facility] Last Admin: 04/01/17 09:19 Dose: 81 mg Cinacalcet (Sensipar) 30 mg PO DAILY [facility] Last Admin: 04/02/17 11:58 Dose: Not Given Epoetin Stephen (Procrit) 10,000 unit IV F [facility] Stop: 04/08/17 09:01 Last Admin: 04/02/17 13:15 Dose: 10,000 unit Famotidine (Pepcid) 20 mg PO DAILY [facility] Last Admin: 04/02/17 11:58 Dose: Not Given Isosorbide Mononitrate (Imdur) 30 mg PO DAILY [facility] Last Admin: 04/02/17 11:58 Dose: Not Given Lisinopril (Zestril) 10 mg PO DAILY [facility] Last Admin: 04/02/17 11:58 Dose: Not Given Metoprolol Tartrate (Lopressor) 25 mg PO BID [facility] Last Admin: 04/02/17 11:58 Dose: Not Given Oxycodone/Acetaminophen (Percocet 5/325 Mg Tab) 1 tab PO Q4H PRN PRN Reason: PAIN, MODERATE (4-7) Stop: 04/02/17 21:02 Last Admin: 04/01/17 21:32 Dose: 1 tab Oxycodone/Acetaminophen (Percocet 5/325 Mg Tab) 2 tab PO Q4H PRN PRN Reason: Pain, severe (8-10) Stop: 04/04/17 10:02 Last Admin: 04/02/17 12:15 Dose: 2 tab Sevelamer Carbonate (Renvela) 2,400 mg PO TIDCC [facility] Last Admin: 04/02/17 12:16 Dose: Not Given - Labs Labs: 04/02/17 07:11 04/02/17 07:11 PT 13.4 SECONDS (9.7-12.2) H 03/30/17 16:13 INR 1.2 03/30/17 16:13 APTT 32 SECONDS (21-34) 03/30/17 16:13 - Constitutional Appears: Non-toxic, No Acute Distress - Head Exam Head Exam: NORMAL INSPECTION - Eye Exam Eye Exam: EOMI - ENT Exam ENT Exam: Mucous Membranes Moist - Respiratory Exam Respiratory Exam: NORMAL BREATHING PATTERN. absent: Rales, Rhonchi, Respiratory Distress - Cardiovascular Exam Cardiovascular Exam: Tachycardia, +S1, +S2 - GI/Abdominal Exam GI & Abdominal Exam: Soft, Normal Bowel Sounds. absent: Distended, Firm, Guarding, Rigid, Tenderness, Rebound - Extremities Exam Extremities Exam: Pedal Edema Additional comments: Right and left knee in knee mobilizers Left knee effusion>right knee sensation bilateral intact negative babinski's bilateral - Neurological Exam Neurological Exam: Alert, Awake, CN II-XII Intact, Oriented x3 - Psychiatric Exam Psychiatric exam: Normal Affect, Normal Mood - Skin Skin Exam: Dry, Intact, Normal Color, Warm Additional comments: Left upper arm: palpable thrill, (dialysis access) Assessment and Plan - Assessment and Plan (Free Text) Assessment: Patient seen, examined, and case discussed this morning with day-time resident. Patient seen this afternoon, completing dialysis this morning, and reports pain controlled with percocet 5/325 2 tab PO Q 4hour PRN severe pain. Per patient, orthopedic has scheduled him for surgery for this 04/03/17. Per cardiology, patient is high cardiac risk individual given his dilated cardiomyopathy s/p ICD (03/2017: EF<25%) for intermediate risk procedure, benefits outweigh risk. Patient is on optimal cardiac therapy per cardio. Patient is type and cross 2 units of PRBC; 1 unit given during dialysis today for optimization; and 1 unit available for OR. Patient's heparin held anticipated for surgery. NPO after midnight Assessment/Plan 1) Bilateral patellar tendon rupture -history of severe hyperparathyroidism -b/l immobilzers with ice pack in place -Percocet 5/325mg 1 tab PO Q 4hour PRN moderate pain -Percocet 5/325mg 2 tab po q4 prn pain severe pain -b/l knee x-ray 03/31: marked decrease in soft tissue swelling identified previously. Similar relationship of the talus to the femurs noted. No acute interval changes. Patient has had prior knee xrays and CT scan from 03/17/17 -Dr. Finley orthopedics consulted-->help appreciated -Dr. Breaux cardiology-->follow-up for cardiac clearance -discussed with cardiology, patient is high cardiac risk individual given his dilated cardiomyopathy (03/2017 EF< 25%) improved to 48% with medical therapy for intermediate risk orthopedic surgery; benefits outweigh the risks -type and cross 2 units PRBC; 1 unit given today during dialysis -Chest xray (03/30): no acute process 2) Non-STEMI, Dilated Cardiomyopathy s/p ICD placement -Cardiology (Dr. Skinner) on board -held aspirin in anticipation for surgery -Lopressor 25mg PO bid -Lisinopril 10mg PO daily -Imdur 30mg PO daily -discussed with cardiology, patient is high cardiac risk individual given his dilated cardiomyopathy (03/2017 EF< 25%) improved to 48% with medical therapy for intermediate risk orthopedic surgery; benefits outweigh the risks 3) ESRD on HD -Sensipar 30mg po daily -MWF schedule -Renal dialysis diet -Dr. Beth, nephrology consulted 4) HTN -Imdur 30mg po daily -Lisinopril 10mg po daily -Lopressor 25mg po bid -Dialysis M/W/F -also influenced by pain, and history of non-compliance per review of EMR 5) Asthma -Duoneb 3ml INH q6 PRN SOB -not in acute exacerbation 6) Secondary hyperparathyroidism -appreciated review from nephrology the severity of hyperparathyroidism 7) Anemia of CKD -Monitor H&H -Type and cross 2 units PRBC; 1 unit given today during dialysis -post transfusion CBC 4 hours completion of transfusion 8) Leukocytosis -Downtrending -Blood culture (04/01/17) collected-->follow-up 9) PPX -held Heparin 5000U SC Q12-->anticoagulation post-op per orthopedic surgery -Pepcid 20mg po daily -SCD c/i -Renal dialysis diet -PT/OT eval per ortho
[2017-04-02 17:00] LABS: HEMATOCRIT 27.6 % (35.0-51.0); MEAN CELL VOLUME 87.3 fL (80.0-94.0); MEAN CORPUSCULAR HEMOGLOBIN 28.7 pg (27.0-31.0); MEAN CORPUSCULAR HGB CONC 32.9 g/dL (33.0-37.0); MEAN PLATELET VOLUME 6.8 fL (7.2-11.7); RED CELL DISTRIBUTION WIDTH 17.4 % (11.5-14.5); WHITE BLOOD COUNT 10.1 K/uL (4.8-10.8)
[2017-04-02 17:10] LABS: POTASSIUM 4.5 mmol/L (3.6-5.2)
[2017-04-02 17:13] LABS: CALCIUM 9.7 mg/dl (8.6-10.4)
[2017-04-03] MEDS: Oxycodone/Acetaminophen 5/325 mg Tab PO PRN ×3 (00:09→08:55)
--- NOTE | 2017-04-03 00:17 | CP.PCM.PN ---
Subjective - Date & Time of Evaluation Date of Evaluation: 04/02/17 Time of Evaluation: 16:00 - Subjective Subjective: SEEN ON RENAL F/U RECIEVED HD TODAY ALONG WITH 1 UNIR PRBC FOR SURGERY TOMORROW Objective - Vital Signs/Intake and Output Vital Signs (last 24 hours): Temp Pulse Resp BP Pulse Ox 98.2 F 110 H 20 148/81 95 04/02/17 16:14 04/02/17 16:14 04/02/17 16:14 04/02/17 17:51 04/02/17 16:14 Intake and Output: 04/02/17 04/03/17 18:59 06:59 Intake Total 355 Balance 355 - Medications Medications: Current Medications Albuterol/Ipratropium (Duoneb 3 Mg/0.5 Mg (3 Ml) Ud) 3 ml INH RQ6 PRN PRN Reason: Shortness of Breath Cinacalcet (Sensipar) 30 mg PO DAILY [facility] Last Admin: 04/02/17 11:58 Dose: Not Given Epoetin Stephen (Procrit) 10,000 unit IV [facility] Stop: 04/08/17 09:01 Last Admin: 04/02/17 13:15 Dose: 10,000 unit Famotidine (Pepcid) 20 mg PO DAILY [facility] Last Admin: 04/02/17 11:58 Dose: Not Given Isosorbide Mononitrate (Imdur) 30 mg PO DAILY [facility] Last Admin: 04/02/17 11:58 Dose: Not Given Lisinopril (Zestril) 10 mg PO DAILY [facility] Last Admin: 04/02/17 11:58 Dose: Not Given Metoprolol Tartrate (Lopressor) 25 mg PO BID [facility] Last Admin: 04/02/17 17:51 Dose: 25 mg Oxycodone/Acetaminophen (Percocet 5/325 Mg Tab) 2 tab PO Q4H PRN PRN Reason: Pain, severe (8-10) Stop: 04/04/17 10:02 Last Admin: 04/03/17 00:09 Dose: 2 tab Sevelamer Carbonate (Renvela) 2,400 mg PO [facility] Last Admin: 04/02/17 17:51 Dose: 2,400 mg - Labs Labs: 04/02/17 16:53 04/02/17 16:53 PT 13.4 SECONDS (9.7-12.2) H 03/30/17 16:13 INR 1.2 03/30/17 16:13 APTT 32 SECONDS (21-34) 03/30/17 16:13
[2017-04-03 06:36] LABS: INR 1.3
[2017-04-03 06:38] LABS: BASO # 0.1 K/uL (0.0-0.2); BASO % 0.7 % (0.0-2.0); EOS # 0.7 K/uL (0.0-0.7); EOS % 7.8 % (0.0-4.0); HEMATOCRIT 26.3 % (35.0-51.0); LYMPH % 10.8 % (20.0-40.0); MEAN CELL VOLUME 88.3 fL (80.0-94.0); MEAN CORPUSCULAR HEMOGLOBIN 29.9 pg (27.0-31.0); MEAN CORPUSCULAR HGB CONC 33.8 g/dL (33.0-37.0); MEAN PLATELET VOLUME 6.8 fL (7.2-11.7); MONO # 0.9 K/uL (0.0-0.8); MONO % 9.8 % (0.0-10.0); RED CELL DISTRIBUTION WIDTH 17.6 % (11.5-14.5); WHITE BLOOD COUNT 9.4 K/uL (4.8-10.8)
[2017-04-03 06:44] LABS: POTASSIUM 4.9 mmol/L (3.6-5.2)
[2017-04-03 06:46] LABS: ALB/GLOB RATIO 0.9 (1.0-2.1); BILIRUBIN,TOTAL 1.5 mg/dL (0.2-1.3); TOTAL PROTEIN 7.3 g/dL (6.3-8.3)
[2017-04-03 06:47] LABS: CALCIUM 10.1 mg/dl (8.6-10.4); MAGNESIUM 2.4 mg/dL (1.6-2.3); PHOSPHOROUS 6.6 mg/dL (2.5-4.5)
--- NOTE | 2017-04-03 07:30 | CP.PCM.PN ---
<Chela Bartholomew - Last Filed: 04/03/17 09:59> Subjective - Date & Time of Evaluation Date of Evaluation: 04/03/17 Time of Evaluation: 07:30 - Subjective Subjective: PGY1 Medicine note for Dr. Ross Patient seen and examined at bedside. Patient has been NPO after midnight and is due for OR today 04/03 at 11am. Patient is s/p 1 U PRBC that was transfused yesterday 04/02. Patient also had HD yesterday 04/02. He reports being very thirsty but understands he cannot eat/drink prior to OR. He denies acute complaints of headache, dizziness, chest pain, palpitations, SOB, cough, abd pain, nausea, vomiting, bowel/bladder complaints. He is in bilateral knee immobilizers and reports the pain is controlled with percocet. Patient was given BP meds before going down to OR Objective - Vital Signs/Intake and Output Vital Signs (last 24 hours): Temp Pulse Resp BP Pulse Ox 98.3 F 91 H 20 147/97 H 98 04/02/17 23:50 04/03/17 04:20 04/02/17 23:50 04/02/17 23:50 04/02/17 23:50 Intake and Output: 04/03/17 04/03/17 06:59 18:59 Intake Total 50 Balance 50 - Medications Medications: Current Medications Albuterol/Ipratropium (Duoneb 3 Mg/0.5 Mg (3 Ml) Ud) 3 ml INH RQ6 PRN PRN Reason: Shortness of Breath Cinacalcet (Sensipar) 30 mg PO DAILY [facility] Last Admin: 04/02/17 11:58 Dose: Not Given Epoetin Stephen (Procrit) 10,000 unit IV F [facility] Stop: 04/08/17 09:01 Last Admin: 04/02/17 13:15 Dose: 10,000 unit Famotidine (Pepcid) 20 mg PO DAILY [facility] Last Admin: 04/02/17 11:58 Dose: Not Given Isosorbide Mononitrate (Imdur) 30 mg PO DAILY [facility] Last Admin: 04/02/17 11:58 Dose: Not Given Lisinopril (Zestril) 10 mg PO DAILY [facility] Last Admin: 04/02/17 11:58 Dose: Not Given Metoprolol Tartrate (Lopressor) 25 mg PO BID [facility] Last Admin: 04/02/17 17:51 Dose: 25 mg Oxycodone/Acetaminophen (Percocet 5/325 Mg Tab) 2 tab PO Q4H PRN PRN Reason: Pain, severe (8-10) Stop: 04/04/17 10:02 Last Admin: 04/03/17 04:49 Dose: 2 tab Sevelamer Carbonate (Renvela) 2,400 mg PO TIDCC [facility] Last Admin: 04/02/17 17:51 Dose: 2,400 mg - Labs Labs: 04/03/17 06:17 04/03/17 06:17 PT 14.7 SECONDS (9.7-12.2) H 04/03/17 06:17 INR 1.3 04/03/17 06:17 APTT 32 SECONDS (21-34) 04/03/17 06:17 - Constitutional Appears: Non-toxic, No Acute Distress - Head Exam Head Exam: ATRAUMATIC, NORMAL INSPECTION, NORMOCEPHALIC - Eye Exam Eye Exam: Normal appearance. absent: Conjunctival injection, Scleral icterus - ENT Exam ENT Exam: Mucous Membranes Dry - Neck Exam Neck Exam: Normal Inspection - Respiratory Exam Respiratory Exam: Clear to Ausculation Bilateral, NORMAL BREATHING PATTERN. absent: Accessory Muscle Use, Rales, Rhonchi, Wheezes, Respiratory Distress - Cardiovascular Exam Cardiovascular Exam: Tachycardia, REGULAR RHYTHM, +S1, +S2, Murmur - GI/Abdominal Exam GI & Abdominal Exam: Soft, Normal Bowel Sounds. absent: Distended, Firm, Guarding, Rigid, Tenderness - Extremities Exam Extremities Exam: absent: Pedal Edema Additional comments: Right and left knee in knee mobilizers Left knee effusion>right knee sensation bilateral intact negative babinski's bilateral LUE palpable thrill - Back Exam Back Exam: NORMAL INSPECTION. absent: rash noted - Neurological Exam Neurological Exam: Alert, Awake, Oriented x3 - Psychiatric Exam Psychiatric exam: Normal Affect, Normal Mood - Skin Skin Exam: Dry, Intact, Normal Color, Warm Assessment and Plan - Assessment and Plan (Free Text) Assessment: 31M with PMHx of ESRD on HD, HTN, asthma, secondary hyperparathyroidism, anemia of CKD, cardiomyopathy, and b/l patellar tendon rupture on 03/17 presented to the ER due to left knee pain. Plan: 1) Bilateral patellar tendon rupture -hx severe hyperparathyroidism and patient has ESRD on HD -Patient for OR today 04/[address] Finley -b/l immobilzers with ice pack in place -Percocet 5/325mg 1 tab PO Q 4hour PRN moderate pain -Percocet 5/325mg 2 tab po q4 prn pain severe pain -b/l knee x-ray 03/31: marked decrease in soft tissue swelling identified previously. Similar relationship of the talus to the femurs noted. No acute interval changes. Patient has had prior knee xrays and CT scan from 03/17/17 -as per cardiology: patient is high cardiac risk with dilated cardiomyopathy (2016 EF< 25%) improved to 48% with medical therapy. Patient is intermediate risk for orthopedic surgery with benefits outweighing risks -Dr. Finley orthopedics consulted -Dr. Skinner cardiology 2) Non-STEMI, Dilated Cardiomyopathy s/p ICD placement -ASA 81mg - on hold for OR -Lopressor 25mg PO bid -Lisinopril 10mg PO daily -Imdur 30mg PO daily -as per cardiology: patient is high cardiac risk with dilated cardiomyopathy (2016 EF< 25%) improved to 48% with medical therapy. Patient is intermediate risk for orthopedic surgery with benefits outweighing risks -Dr. Skinner cardiology 3) ESRD on HD -Sensipar 30mg po daily -MWF schedule -Renal dialysis diet -Dr. Beth, nephrology consulted 4) HTN -Imdur 30mg po daily -Lisinopril 10mg po daily -Lopressor 25mg po bid -Dialysis M/W/F -also influenced by pain, and history of non-compliance per review of EMR 5) Asthma -Duoneb 3ml INH q6 PRN SOB -not in acute exacerbation 6) Secondary hyperparathyroidism -Managed as per nephro 7) Anemia of CKD -Monitor H&H -s/p 1 U PRBC transfusion on 04/02 -Hgb 8.9 this AM 8) Leukocytosis -Downtrending 9.4 this AM -Blood culture +1 Gram positive cocci prelim -Second blood culture was prelim negative- f/u final -1 dose vancomycin 1gm IV to be given 9) PPX -Heparin 5000U SC Q12 on hold -Pepcid 20mg po daily -SCD c/i -Renal dialysis diet -PT/OT eval per ortho Plan discussed with Dr. Cody Bartholomew PGY1 <Alfredito Ross - Last Filed: 05/09/17 11:46> Objective - Vital Signs/Intake and Output Vital Signs (last 24 hours): Temp Pulse Resp BP Pulse Ox 99.1 F 88 20 119/68 100 04/05/17 15:00 04/05/17 15:00 04/05/17 15:00 04/05/17 17:23 04/05/17 15:00 - Labs Labs: 04/05/17 08:16 04/05/17 08:16 PT 14.7 SECONDS (9.7-12.2) H 04/03/17 06:17 INR 1.3 04/03/17 06:17 APTT 32 SECONDS (21-34) 04/03/17 06:17 Attending/Attestation - Attestation I have personally seen and examined this patient.: Yes I have fully participated in the care of the patient.: Yes I have reviewed all pertinent clinical information, including history, physical exam and plan: Yes Notes (Text): 31M with PMHx of ESRD on HD, HTN, asthma, secondary hyperparathyroidism, anemia of CKD, cardiomyopathy, and b/l patellar tendon rupture on 03/17 presented to the ER due to left knee pain. Bilateral patellar tendon rupture Non-STEMI, Dilated Cardiomyopathy s/p ICD placement
[2017-04-03] MEDS ORDERED: Vancomycin 1 gm/NS 200 ml 1 GM/200 ML BAG IVPB STA (09:48)
[2017-04-03] MEDS ORDERED: Sodium Chloride 0.9% 1,000 ML IV ONE (10:10)
[2017-04-03] MEDS ORDERED: Bupivacaine HCl 0.25% PF (10 ml) Inj ONE (10:12)
[2017-04-03] MEDS ORDERED: Bupivacaine HCl 0.5% PF (10 ml) Inj ONE ×3 (10:12→10:53)
[2017-04-03] MEDS ORDERED: Lidocaine Hydrochloride 15 ML INJ ONE (10:13)
[2017-04-03] MEDS ORDERED: Phenylephrine 10 mg/ml Inj ONE (10:13)
[2017-04-03] MEDS ORDERED: Midazolam 2 MG/2 ML VIAL ONE ×3 (10:17→12:28)
[2017-04-03] MEDS ORDERED: Lidocaine 2% w Epi 1:100,000 Inj IJ ONE (10:37)
[2017-04-03] MEDS ORDERED: Remifentanil 1 mg/3 ml Vial IV ONE (10:50)
--- NOTE | 2017-04-03 11:19 | CP.PCM.PN ---
<Lino Vee - Last Filed: 04/03/17 16:18> Subjective - Date & Time of Evaluation Date of Evaluation: 04/03/17 Time of Evaluation: 09:35 - Subjective Subjective: Cardiology Progress Note Dr. Skinner Patient seen and examined at bedside. Resting in bed, no acute distress evident , but just recently received pain medication per Nursing. No acute events overnight. Underwent dialysis yesterday, pending OR today for surgical repair of bilateral patellar tendon rupture. Patient reports continued pain in bilateral knees and LE, denies chest pain, or worsening SOB (mild SOB at baseline per pt, unchanged). Remaining ROS negative. Objective - Vital Signs/Intake and Output Vital Signs (last 24 hours): Temp Pulse Resp BP Pulse Ox 98 F 87 18 142/86 95 04/03/17 07:15 04/03/17 07:15 04/03/17 07:15 04/03/17 09:15 04/03/17 07:15 Intake and Output: 04/03/17 04/03/17 06:59 18:59 Intake Total 50 Balance 50 - Medications Medications: Current Medications Albuterol/Ipratropium (Duoneb 3 Mg/0.5 Mg (3 Ml) Ud) 3 ml INH RQ6 PRN PRN Reason: Shortness of Breath Cinacalcet (Sensipar) 30 mg PO DAILY [facility] Last Admin: 04/03/17 09:18 Dose: Not Given Epoetin Stephen (Procrit) 10,000 unit IV MWF [facility] Stop: 04/08/17 09:01 Last Admin: 04/02/17 13:15 Dose: 10,000 unit Famotidine (Pepcid) 20 mg PO DAILY [facility] Last Admin: 04/03/17 09:17 Dose: Not Given Vancomycin/Sodium Chloride (Vancocin) 1 gm in 200 mls @ 133.333 mls/hr IVPB STAT ST[facility] Stop: 04/03/17 11:17 Last Admin: 04/03/17 10:47 Dose: 200 mls Isosorbide Mononitrate (Imdur) 30 mg PO DAILY [facility] Last Admin: 04/03/17 09:17 Dose: Not Given Lisinopril (Zestril) 10 mg PO DAILY [facility] Last Admin: 04/03/17 09:16 Dose: 10 mg Metoprolol Tartrate (Lopressor) 25 mg PO BID [facility] Last Admin: 04/03/17 09:15 Dose: 25 mg Oxycodone/Acetaminophen (Percocet 5/325 Mg Tab) 2 tab PO Q4H PRN PRN Reason: Pain, severe (8-10) Stop: 04/04/17 10:02 Last Admin: 04/03/17 08:55 Dose: 2 tab Sevelamer Carbonate (Renvela) 2,400 mg PO TIDCC [facility] Last Admin: 04/03/17 11:12 Dose: Not Given - Labs Labs: 04/03/17 06:17 04/03/17 06:17 PT 14.7 SECONDS (9.7-12.2) H 04/03/17 06:17 INR 1.3 04/03/17 06:17 APTT 32 SECONDS (21-34) 04/03/17 06:17 - Constitutional Appears: Non-toxic, No Acute Distress, Chronically Ill - Head Exam Head Exam: ATRAUMATIC, NORMAL INSPECTION, NORMOCEPHALIC - Eye Exam Eye Exam: EOMI, Normal appearance. absent: Conjunctival injection, Scleral icterus Additional comments: No conjunctival palor - ENT Exam ENT Exam: Mucous Membranes Moist. absent: Mucous Membranes Dry - Neck Exam Neck Exam: Full ROM - Respiratory Exam Respiratory Exam: Decreased Breath Sounds, Clear to Ausculation Bilateral, NORMAL BREATHING PATTERN. absent: Accessory Muscle Use, Chest Wall Tenderness, Rales, Rhonchi, Wheezes, Respiratory Distress - Cardiovascular Exam Cardiovascular Exam: Tachycardia, REGULAR RHYTHM, +S1, +S2. absent: Bradycardia , Irregular Rhythm, JVD, RRR, +S4 - GI/Abdominal Exam GI & Abdominal Exam: Soft, Tenderness (mild diffuse tenderness), Normal Bowel Sounds. absent: Distended, Firm, Rigid, Diminished Bowel Sounds, Hypoactive Bowel Sounds - Extremities Exam Extremities Exam: Joint Swelling (swelling in bilateral knees, L>R), Tenderness (acutely tender at bilateral knees, mild tenderness surrounding bilateral knees , no distinct calf tenderness). absent: Calf Tenderness, Full ROM Additional comments: Wearing bilateral knee immobilizers and SCDs No pitting edema in bilateral LE below the knees, knee swelling as noted above No gross asymmetry or erythema in bilateral LE - Neurological Exam Neurological Exam: Alert, Awake - Psychiatric Exam Psychiatric exam: Normal Affect, Normal Mood - Skin Skin Exam: Dry, Intact, Normal Color, Warm Assessment and Plan (1) Dilated cardiomyopathy Assessment & Plan: EKG 03/17/17: Unusual P axis and short MD, probable junctional tachycardia, Voltage criteria for left ventricular hypertrophy, T wave abnormality (consider lateral ischemia), Prolonged QT, Abnormal ECG EKG 03/18/17: Normal sinus rhythm, Moderate voltage criteria for LVH, may be normal variant, T wave abnormality (consider lateral ischemia), Prolonged QT, Abnormal ECG EKG 03/27/17: Normal sinus rhythm at 99bpm, Minimal voltage criteria for LVH ( may be normal variant), Nonspecific T wave abnormality, Prolonged QT at 477, Abnormal ECG EKG 03/30/17: Normal sinus rhythm at 100bpm, Voltage criteria for left ventricular hypertrophy, Nonspecific T wave abnormality, Prolonged QT at 490, Abnormal ECG Echo 09/25/15: LVEF 32%, Dilated LV with severe global hypokinesis, Mod-Severe MR, Mod TR, Mod-Severe Pulm HTN (PASP = 55mmHG) Echo 03/18/17: LVEF 25%, Dilated LV with normal thickness, elevated diastolic filling pressures, no evidence of intraluminal thrombus, dilated LA, mild MR, normal aortic root, moderate TR, elevated pulm systolic pressures (80mmHg), right ICD lead noted Trops (admit --> most recent): 0.1450, 0.1910 -Hx Cardiomyopathy with EF 25%, 2/2 to poorly controlled HTN (pt frequently noted to be non-compliant) -s/p ICD; normal fxn as per interrogation during 03/17/17-03/21/17 admission -continue to medically manage Status: Chronic (2) Elevated troponin Assessment & Plan: EKG 03/17/17: Unusual P axis and short MD, probable junctional tachycardia, Voltage criteria for left ventricular hypertrophy, T wave abnormality (consider lateral ischemia), Prolonged QT, Abnormal ECG EKG 03/18/17: Normal sinus rhythm, Moderate voltage criteria for LVH, may be normal variant, T wave abnormality (consider lateral ischemia), Prolonged QT, Abnormal ECG EKG 03/27/17: Normal sinus rhythm at 99bpm, Minimal voltage criteria for LVH ( may be normal variant), Nonspecific T wave abnormality, Prolonged QT at 477, Abnormal ECG EKG 03/30/17: Normal sinus rhythm at 100bpm, Voltage criteria for left ventricular hypertrophy, Nonspecific T wave abnormality, Prolonged QT at 490, Abnormal ECG Echo 09/25/15: LVEF 32%, Dilated LV with severe global hypokinesis, Mod-Severe MR, Mod TR, Mod-Severe Pulm HTN (PASP = 55mmHG) Echo 03/18/17: LVEF 25%, Dilated LV with normal thickness, elevated diastolic filling pressures, no evidence of intraluminal thrombus, dilated LA, mild MR, normal aortic root, moderate TR, elevated pulm systolic pressures (80mmHg), right ICD lead noted Trops (admit --> most recent): 0.1450, 0.1910 -Renal leak vs leak 2/2 RV strain from fluid overload; less likely ACS/NSTEMI -Hx of Cardiomyopathy s/p ICD secondary to poorly controlled HTN, EF 25% -S/p HD yesterday (on MWF schedule); missed HD on 03/27/17, received it 03/28/17 -Cardiac stable, hemodynamically stable, No chest pain prior to/during this admission, ICD normal fxn as per interrogation during 03/17-03/21 admission -Continue medical management, HD as per Nephro Status: Chronic (3) HTN (hypertension) Assessment & Plan: -Intermittently elevated BPs, improved since HD yesterday -Cardiomyopathy 2/2 poorly controlled HTN, frequently noted to be non-compliant with med regimen and followup -Continue daily Imdur and Lisinopril, BID Metoprolol -continue to monitor Status: Chronic (4) ESRD needing dialysis Assessment & Plan: Trops (admit --> most recent): 0.1450, 0.1910 -HD MWF, continue as per Nephro -elevated trops may be due to renal leak vs RV strain from fluid overload, continue to monitor Status: Chronic (5) Pre-operative clearance Assessment & Plan: -Cardiac clearance for Bilateral Patellar tendon repair * Page score: 3 (1% risk) * Detsky score: 15 (low risk) * David score: 2 (6.6% risk) -Benefits outweigh risk, Per Ortho risks discussed with pt and family and they accept Status: Acute - Assessment and Plan (Free Text) Assessment: Case discussed with Dr. Skinner. <Yair Skinner - Last Filed: 04/06/17 10:15> Objective - Vital Signs/Intake and Output Vital Signs (last 24 hours): Temp Pulse Resp BP Pulse Ox 99.1 F 88 20 119/68 100 04/05/17 15:00 04/05/17 15:00 04/05/17 15:00 04/05/17 17:23 04/05/17 15:00 - Labs Labs: 04/05/17 08:16 04/05/17 08:16 PT 14.7 SECONDS (9.7-12.2) H 04/03/17 06:17 INR 1.3 04/03/17 06:17 APTT 32 SECONDS (21-34) 04/03/17 06:17 Attending/Attestation - Attestation I have personally seen and examined this patient.: Yes I have fully participated in the care of the patient.: Yes I have reviewed all pertinent clinical information, including history, physical exam and plan: Yes Notes (Text): 04/06/17 10:15 s/p dialysis for surgery today no VT
--- NOTE | 2017-04-03 12:42 | CARD ---
APPROVED REPORT EKG Measurement Heart [id number] <Conclusion> Normal sinus rhythm Voltage criteria for left ventricular hypertrophy Nonspecific T wave abnormality Prolonged QT Abnormal ECG
[2017-04-03] MEDS ORDERED: Dexmedetomidine Hydrochloride 100 mcg/ml (2ML) ONE (12:51)
--- NOTE | 2017-04-03 12:51 | PCM.ANESB3 ---
Femoral Nerve Block - Femoral Nerve Block Date of Procedure: 04/03/17 Anesthesiologist: Elis Pre-Procedure Diagnosis: Bilateral Patella Tendon Rupture Post-Procedure Diagnosis: Bilateral Patella Tendon Rupture Procedure Performed: Femoral Nerve Block Left, Femoral Nerve Block Right - Procedure Femoral Nerve Block: The procedure was explained to the patient that it is for the post-operative pain management. Consent was obtained after a thorough discussion with the patient regarding the benefits and possible complications of local anesthetic block of the femoral nerve at the inguinal crease area. The patient was brought to the operating room and standard monitors were applied. Time-out was held with the circulating nurse to confirm the correct surgery and the appropriate block. After applying oxygen by nasal cannula and administering IV Sedation, patient was placed in supine position with fully extended lower extremities and the groin exposed. The femoral artery was then carefully palpated. The ultrasound transducer was then applied to this area in the transverse plane and the femoral nerve was visualized lateral to the femoral artery and underneath the fascia iliaca. After thorough identification, the inguinal crease area was prepped with chloroprep solution three times. At this point, a #22 gauge Stimuplex 4-inch needle was inserted immediately lateral to the femoral artery pulse at the left inguinal crease and advanced perpendicularly. The needle was inserted to the ultrasound transducer in-plane towards the femoral nerve in a [id number] direction. Needle advancement was performed carefully under direct ultrasound visualization. After negative aspiration, 20 cc of 0.5% bupivicaine was injected. Under ultrasound guidance the local anesthetics were observed spreading below fascia iliaca and around the femoral nerve. The same procedure with 20 cc of 0.5% bupivicaine was repeated for the right side after sterile prep with chloroprep. The needle was removed intact and sterile dressing was applied. The patient had stable vital signs, was conscious and in no apparent distress. The patient tolerated the femoral nerve blocks well with stable vital signs and was prepared for subsequent surgery.
[2017-04-03] MEDS ORDERED: Esmolol 100 mg/10ml Inj IV ONE (14:16)
[2017-04-03] MEDS ORDERED: HYDROmorphone 0.5 mg/0.5 ml ISec IVP PRN (15:34)
--- NOTE | 2017-04-03 15:34 | PCM.SURG1 ---
Surgeon's Initial Post Op Note - Surgeon's Notes Surgeon: Dr. Jonathan Finley MD Reed Press Feeder: Dr. Adalberto Saleh, PGY1 Type of Anesthesia: Spinal, Block Regional (Femoral Block; Bilaterally. ) Anesthesia Administered By: Dr. Thuan DO Pre-Operative Diagnosis: Bilateral Patellar Tendon rupture Operative Findings: See Dictation Post-Operative Diagnosis: Same as pre-operative Operation Performed: Bilateral Patellar Tendon repair Specimen/Specimens Removed: None Estimated Blood Loss: EBL {In ML}: 200 Blood Products Given: N/A Drains Used: Mariano Ware (Left Knee) Post-Op Condition: Good Date of Surgery/Procedure: 04/03/17 Time of Surgery/Procedure: 15:34
[2017-04-03] MEDS ORDERED: Oxycodone/Acetaminophen 5/325 mg Tab PO PRN (15:35)
--- NOTE | 2017-04-04 06:59 | CP.PCM.PN ---
<Chela Bartholomew - Last Filed: 04/04/17 13:05> Subjective - Date & Time of Evaluation Date of Evaluation: 04/04/17 Time of Evaluation: 07:30 - Subjective Subjective: PGY1 Medicine note for Dr. Ross Patient seen and examined at bedside. Patient is POD#1 s/p bilateral patellar tendon repair. Patient has knee immobilizers in place and reports pain is controlled. Patient to be transfused 1U PRBC and have HD today. He denies acute complaints of headache, dizziness, chest pain, palpitations, SOB, cough, abd pain, nausea, vomiting, bowel/bladder complaints. Objective - Vital Signs/Intake and Output Vital Signs (last 24 hours): Temp Pulse Resp BP Pulse Ox 99.4 F 105 H 20 131/73 95 04/03/17 23:30 04/04/17 04:05 04/03/17 23:30 04/03/17 23:30 04/03/17 23:30 Intake and Output: 04/03/17 04/04/17 18:59 06:59 Intake Total 650 Output Total 55 Balance 595 - Medications Medications: Current Medications Acetaminophen (Tylenol 325mg Tab) 650 mg PO Q6 PRN PRN Reason: Pain, Mild (1-3) Albuterol/Ipratropium (Duoneb 3 Mg/0.5 Mg (3 Ml) Ud) 3 ml INH RQ6 PRN PRN Reason: Shortness of Breath Cinacalcet (Sensipar) 30 mg PO DAILY [facility] Last Admin: 04/03/17 09:18 Dose: Not Given Epoetin Stephen (Procrit) 10,000 unit IV F [facility] Stop: 04/08/17 09:01 Last Admin: 04/02/17 13:15 Dose: 10,000 unit Famotidine (Pepcid) 20 mg PO DAILY [facility] Last Admin: 04/03/17 09:17 Dose: Not Given Isosorbide Mononitrate (Imdur) 30 mg PO DAILY [facility] Last Admin: 04/03/17 09:17 Dose: Not Given Lisinopril (Zestril) 10 mg PO DAILY [facility] Last Admin: 04/03/17 09:16 Dose: 10 mg Metoprolol Tartrate (Lopressor) 25 mg PO BID [facility] Last Admin: 04/03/17 18:12 Dose: 25 mg Oxycodone/Acetaminophen (Percocet 5/325 Mg Tab) 2 tab PO Q4H PRN PRN Reason: Pain, severe (8-10) Stop: 04/04/17 10:02 Last Admin: 04/03/17 08:55 Dose: 2 tab Oxycodone/Acetaminophen (Percocet 5/325 Mg Tab) 1 tab PO Q4H PRN PRN Reason: Pain, moderate (4-7) Stop: 04/06/17 15:36 Sevelamer Carbonate (Renvela) 2,400 mg PO TIDCC [facility] Last Admin: 04/03/17 17:50 Dose: 2,400 mg - Labs Labs: 04/03/17 16:13 04/03/17 06:17 PT 14.7 SECONDS (9.7-12.2) H 04/03/17 06:17 INR 1.3 04/03/17 06:17 APTT 32 SECONDS (21-34) 04/03/17 06:17 - Constitutional Appears: Non-toxic, No Acute Distress - Head Exam Head Exam: NORMAL INSPECTION - Eye Exam Eye Exam: Normal appearance. absent: Conjunctival injection, Scleral icterus - ENT Exam ENT Exam: Mucous Membranes Moist - Neck Exam Neck Exam: Full ROM, Normal Inspection - Respiratory Exam Respiratory Exam: Clear to Ausculation Bilateral, NORMAL BREATHING PATTERN. absent: Accessory Muscle Use, Rales, Rhonchi, Wheezes, Respiratory Distress - Cardiovascular Exam Cardiovascular Exam: Tachycardia, REGULAR RHYTHM, +S1, +S2, Murmur - GI/Abdominal Exam GI & Abdominal Exam: Soft, Normal Bowel Sounds. absent: Tenderness - Extremities Exam Extremities Exam: Tenderness (approp to surgery) Additional comments: b/l knee immobilizers in place L woundvac in place dressings c/d/i b/l LUE fistula with thrill - Back Exam Back Exam: NORMAL INSPECTION. absent: rash noted - Neurological Exam Neurological Exam: Alert, Awake, Oriented x3 - Psychiatric Exam Psychiatric exam: Normal Affect, Normal Mood - Skin Skin Exam: Dry, Intact, Normal Color, Warm Assessment and Plan - Assessment and Plan (Free Text) Assessment: 31M with PMHx of ESRD on HD, HTN, asthma, secondary hyperparathyroidism, anemia of CKD, cardiomyopathy, and b/l patellar tendon rupture on 03/17 presented to the ER due to left knee pain. Plan: 1) Bilateral patellar tendon rupture -hx severe hyperparathyroidism and patient has ESRD on HD -POD#1 s/p bilateral patellar tendon repairs -b/l immobilzers with ice pack in place -Percocet 5/325mg 1 tab PO Q 4hour PRN moderate pain -Percocet 5/325mg 2 tab po q4 prn pain severe pain -b/l knee x-ray 03/31: marked decrease in soft tissue swelling identified previously. Similar relationship of the talus to the femurs noted. No acute interval changes. Patient has had prior knee xrays and CT scan from 03/17/17 -as per cardiology: patient is high cardiac risk with dilated cardiomyopathy (2016 EF< 25%) improved to 48% with medical therapy. Patient is intermediate risk for orthopedic surgery with benefits outweighing risks -Dr. Finley orthopedics consulted -Dr. Skinner cardiology 2) Dilated Cardiomyopathy s/p ICD placement -ASA 81mg - on hold for OR -Lopressor 25mg PO bid -Lisinopril 10mg PO daily -Imdur 30mg PO daily -as per cardiology: patient is high cardiac risk with dilated cardiomyopathy (2016 EF< 25%) improved to 48% with medical therapy. Patient is intermediate risk for orthopedic surgery with benefits outweighing risks -Dr. Skinner cardiology 3) ESRD on HD -Sensipar 30mg po daily -MWF schedule -Renal dialysis diet -Dr. Beth, nephrology consulted 4) HTN -Imdur 30mg po daily -Lisinopril 10mg po daily -Lopressor 25mg po bid -Dialysis M/W/F -also influenced by pain, and history of non-compliance per review of EMR 5) Asthma -Duoneb 3ml INH q6 PRN SOB -not in acute exacerbation 6) Secondary hyperparathyroidism -Managed as per nephro 7) Anemia of CKD -Monitor H&H -patient to be transfused 1U PRBC during HD today 04/04 -s/p 1 U PRBC transfusion on 04/02 8) Leukocytosis -10.3 this AM -Blood culture x 2 +1Gram positive cocci prelim -1 dose vancomycin 1gm IV to be given [total of 2 doses] 9) PPX -Heparin 5000U SC Q12 r -Pepcid 20mg po daily -SCD c/i -Renal dialysis diet -PT/OT eval -WBAT as per ortho -Dispo: D/C planning Plan discussed with Dr. Cody Bartholomew PGY1 <Alfredito Ross - Last Filed: 05/10/17 12:28> Objective - Vital Signs/Intake and Output Vital Signs (last 24 hours): Temp Pulse Resp BP Pulse Ox 99.1 F 88 20 119/68 100 04/05/17 15:00 04/05/17 15:00 04/05/17 15:00 04/05/17 17:23 04/05/17 15:00 - Labs Labs: 04/05/17 08:16 04/05/17 08:16 PT 14.7 SECONDS (9.7-12.2) H 04/03/17 06:17 INR 1.3 04/03/17 06:17 APTT 32 SECONDS (21-34) 04/03/17 06:17 Attending/Attestation - Attestation I have personally seen and examined this patient.: Yes I have fully participated in the care of the patient.: Yes I have reviewed all pertinent clinical information, including history, physical exam and plan: Yes Notes (Text): Patient Seen and examined with the resident. Agree with the resident's evaluation, assessment and plan. 31M with PMHx of ESRD on HD, HTN, asthma, secondary hyperparathyroidism, anemia of CKD, cardiomyopathy, and b/l patellar tendon rupture on 03/17 presented to the ER due to left knee pain. Bilateral patellar tendon rupture hx severe hyperparathyroidism and patient has ESRD on HD POD#1 s/p bilateral patellar tendon repairs Dilated Cardiomyopathy s/p ICD placement ESRD on HD
[2017-04-04 07:26] LABS: BASO # 0.1 K/uL (0.0-0.2); BASO % 0.8 % (0.0-2.0); EOS # 0.4 K/uL (0.0-0.7); HEMATOCRIT 21.8 % (35.0-51.0); LYMPH # 1.1 K/uL (1.0-4.3); LYMPH % 10.8 % (20.0-40.0); MEAN CELL VOLUME 87.5 fL (80.0-94.0); MEAN CORPUSCULAR HEMOGLOBIN 29.7 pg (27.0-31.0); MEAN CORPUSCULAR HGB CONC 33.9 g/dL (33.0-37.0); MONO # 1.5 K/uL (0.0-0.8); MONO % 14.3 % (0.0-10.0); RED CELL DISTRIBUTION WIDTH 17.2 % (11.5-14.5); WHITE BLOOD COUNT 10.3 K/uL (4.8-10.8)
[2017-04-04 07:37] LABS: BILIRUBIN,TOTAL 1.3 mg/dL (0.2-1.3); POTASSIUM 5.6 mmol/L (3.6-5.2)
[2017-04-04 07:38] LABS: ALB/GLOB RATIO 0.9 (1.0-2.1); CALCIUM 9.4 mg/dl (8.6-10.4); PHOSPHOROUS 6.5 mg/dL (2.5-4.5); TOTAL PROTEIN 6.7 g/dL (6.3-8.3)
[2017-04-04 07:39] LABS: MAGNESIUM 2.4 mg/dL (1.6-2.3)
--- NOTE | 2017-04-04 08:10 | OP ---
PROCEDURE DATE: 04/03/2017 SURGEON: Jonathan Finley M.D. MACHINE TAPER: Marvin, resident. PREOPERATIVE DIAGNOSIS: Bilateral knee patellar tendon rupture. POSTOPERATIVE DIAGNOSES: 1. Bilateral knee patellar tendon rupture. 2. Bilateral knee retinaculum rupture. 3. Bilateral knee hematomas. OPERATIONS: 1. Bilateral knee patellar tendon primary repair with augmentation using Arthrex SwiveLock anchor with internal brace technique. 2. Bilateral knee primary medial and lateral retinaculum repair. 3. Bilateral knee hematoma removal. ANESTHESIA: Epidural anesthesia and bilateral femoral nerve blocks. ESTIMATED BLOOD LOSS: 200 mL. SPECIMENS: None. COMPLICATIONS: None. DISPOSITION: Stable to recovery room. INDICATIONS: A 31-year-old male with multiple comorbidities and metabolic disorder who presented with full-thickness bilateral patellar tendon rupture from standing up from a chair. The patient presented to the Emergency Room, was admitted and underwent the above surgery. Risks and benefits of the procedure were explained. Risks include, but not limited to bleeding, tendon, nerve or vessel injury, instability, re-rupture, potential need for additional surgery in the future, stiffness, chronic pain, weakness. The patient understood the above risks and elected to proceed. Informed consent was obtained. DESCRIPTION OF PROCEDURE: The patient was brought to the operating room and placed supine on the operating table. After regional anesthesia was given and prophylactic antibiotics, a nonsterile thigh tourniquet was placed. Both lower extremities were then prepped and draped in standard surgical fashion. A timeout was performed. First, work was begun on the right knee. A standard anterior knee incision was made over the anterior knee. Incision was carried down to the fascial layer. There was extensive hematoma and a full thickness rupture of the patellar tendon extending into the vastus medialis muscle and into the lateral retinaculum muscle. The hematoma was removed. The wound was copiously irrigated. The tendon edges were debrided to healthy tissue. Also, the patella was exposed and proximal pole of the patella was debrided with rongeur to bleeding bone. After this, work was begun on the tendon. Using #5 FiberWire, the tendon was secured with a running krackow technique with 4 free limbs exiting the tendon edge. After this, bone tunnels were prepared using 2.0 drill. Three bone tunnels in inferior to superior position in the patella were made. The limbs 4 of the sutures were passed through the 3 bone tunnels. The most superior suture was passed through the superior bone tunnel. The middle 2 sutures were passed through the middle bone tunnel and the inferior suture was passed through the inferior bone tunnel. After this, the knee was held in 30 degrees of flexion. The patella was reduced to the tendon under tension. The sutures were tied over the bone tunnels. Sutures were tied under the bone tunnels. They were secured deep to the quadriceps tendon. After this, multiple 0 Vicryl sutures were used to repair the vastus medialis muscle and lateral retinaculum. This added reinforcement of the construct. Next, work was begun on securing an internal brace over the repaired site. 2-0 SwiveLock anchors with FiberTape and FiberWire were used on both inferior, medial and anterolateral poles of the patella for placement of the anchors with sutures/ Both sutures were carried down in a triangular fashion to the tibial tubercle and they were both secured using another SwiveLock anchor with good tension at the tibial tubercle. This construct and the internal brace added reinforcement of the repair. The patient had passive range of motion 0 to about 45 degrees without any gapping of the repair site. The wound was then copiously irrigated and tourniquet was deflated. Hemostasis was obtained. The wound was closed with multiple 0 Vicryls followed by 2-0 Vicryl followed by jose. Work was then begun on the left knee. A standard anterior knee incision was made over the left knee. Flaps were created. The wound was exposed down to the fascial layer. There was extensive amount of hematoma in the knee. About 200-300 mL of dry hematoma was removed. The wound was copiously irrigated. Rupture was identified full thickness and running all the way from vastus medialis across the inferior pole of the patella to the lateral retinaculum. The wound, muscle and patella bone was debrided The patellar tendon was secured with #5 FiberWire simillar to contralateral knee , using running krackow stich with 4 free limbs exiting the tendon edge. Three bone tunnels were made in patela. patellar tendon sutures were then passed through the bone tunnels and tied to each other while the knee was held in 30 degrees of flexion. This anatomically repaired the patellar tendon. We then repaired the vastus medialis muscle with interrupted 0 Vicryl sutures followed by repairing of the lateral retinaculum also with interrupted 0 Vicryl sutures. The tendon repair was then again reinforced with interrupted #5 FiberWire sutures. Next, work was begun on securing the the internal brace. UsingSwiveLock with FiberTape and FiberWire, we drilled over the inferior medial and lateral poles of the patella. After drilling both anchors were places and the free suture limbs were then carried down and secured to tibial tubercle with another anchor. This formed a triangular configuration of internal brace and added reinforcement to the repair. The patient had good range of motion 0-45 degrees. there was no gapping at repair sites. The wound was then copiously irrigated again and closed with 1-0 Vicryl followed by 2-0 Vicryl followed by jose for the skin Both knees were sterilely dressed. Tourniquet was deflated. Dressings applied consisting of fluffs, Xeroform and Geoff bandage. Both lower extremities were placed into the extension knee braces. The patient tolerated anesthesia well. Also, a Hemovac drain was placed into the left knee for postoperative hematoma, control. Note that the patient has a large BMI, this increased the complexity of case by 50% which required longer operating time. Jonathan Finley M.D. cc: [id number] TT: 04/04/2017 07:50:59 zakia HARPER
[2017-04-04] MEDS ORDERED: HYDROmorphone 0.5 mg/0.5 ml ISec IVP PRN (08:30)
[2017-04-04] MEDS ORDERED: Oxycodone/Acetaminophen 5/325 mg Tab PO PRN (08:30)
[2017-04-04] MEDS: Epoetin Alfa 10,000 unit/ml Dialysis IV SCH (10:09)
--- NOTE | 2017-04-04 10:32 | CP.PCM.PN ---
<Lino Vee - Last Filed: 04/04/17 10:24> Subjective - Date & Time of Evaluation Date of Evaluation: 04/04/17 Time of Evaluation: 07:35 - Subjective Subjective: Cardiology Progress Note Dr. Skinner Patient seen and examined at bedside. Resting in bed, no acute distress evident. No acute events overnight. POD #1 for for surgical repair of bilateral patellar tendon rupture. Patient reports continued pain in bilateral knees and LE, better controlled today; denies chest pain, or worsening SOB ( mild SOB at baseline per pt, unchanged). Remaining ROS negative. Pending HD today. Objective - Vital Signs/Intake and Output Vital Signs (last 24 hours): Temp Pulse Resp BP Pulse Ox 98.6 F 102 H 16 130/72 97 04/04/17 10:13 04/04/17 10:13 04/04/17 10:13 04/04/17 10:13 04/04/17 09:00 Intake and Output: 04/04/17 04/04/17 06:59 18:59 Intake Total 650 0 Output Total 55 Balance 595 0 - Medications Medications: Current Medications Acetaminophen (Tylenol 325mg Tab) 650 mg PO Q6 PRN PRN Reason: Pain, Mild (1-3) Albuterol/Ipratropium (Duoneb 3 Mg/0.5 Mg (3 Ml) Ud) 3 ml INH RQ6 PRN PRN Reason: Shortness of Breath Cinacalcet (Sensipar) 30 mg PO DAILY [facility] Last Admin: 04/03/17 09:18 Dose: Not Given Epoetin Stephen (Procrit) 10,000 unit IV MWF [facility] Stop: 04/08/17 09:01 Last Admin: 04/04/17 10:09 Dose: 10,000 unit Famotidine (Pepcid) 20 mg PO DAILY [facility] Last Admin: 04/03/17 09:17 Dose: Not Given Hydromorphone HCl (Dilaudid) 0.5 mg IVP Q6H PRN PRN Reason: Pain, severe (8-10) Isosorbide Mononitrate (Imdur) 30 mg PO DAILY [facility] Last Admin: 04/03/17 09:17 Dose: Not Given Lisinopril (Zestril) 10 mg PO DAILY [facility] Last Admin: 04/03/17 09:16 Dose: 10 mg Metoprolol Tartrate (Lopressor) 25 mg PO BID [facility] Last Admin: 04/03/17 18:12 Dose: 25 mg Oxycodone/Acetaminophen (Percocet 5/325 Mg Tab) 1 tab PO Q4H PRN PRN Reason: Pain, Mild (1-3) Stop: 04/06/17 08:31 Sevelamer Carbonate (Renvela) 2,400 mg PO TIDCC [facility] Last Admin: 04/04/17 08:24 Dose: 2,400 mg - Labs Labs: 04/04/17 07:18 04/04/17 07:18 PT 14.7 SECONDS (9.7-12.2) H 04/03/17 06:17 INR 1.3 04/03/17 06:17 APTT 32 SECONDS (21-34) 04/03/17 06:17 - Additional Findings Additional findings: - Constitutional Appears: Non-toxic, No Acute Distress, Chronically Ill - Head Exam Head Exam: ATRAUMATIC, NORMAL INSPECTION, NORMOCEPHALIC - Eye Exam Eye Exam: EOMI, Normal appearance. absent: Conjunctival injection, Scleral icterus, Conjunctival palor - ENT Exam ENT Exam: Mucous Membranes Moist. absent: Mucous Membranes Dry - Neck Exam Neck Exam: Full ROM - Respiratory Exam Respiratory Exam: Decreased Breath Sounds, Clear to Ausculation Bilateral, NORMAL BREATHING PATTERN. absent: Accessory Muscle Use, Chest Wall Tenderness, Rales, Rhonchi, Wheezes, Respiratory Distress - Cardiovascular Exam Cardiovascular Exam: Tachycardia, REGULAR RHYTHM, +S1, +S2. absent: Bradycardia , Irregular Rhythm, JVD, RRR - GI/Abdominal Exam GI & Abdominal Exam: Soft, Normal Bowel Sounds. absent: Distended, Firm, Rigid , Diminished Bowel Sounds, Hypoactive Bowel Sounds - Extremities Exam Extremities Exam: Tenderness (acutely tender at bilateral knees, mild tenderness surrounding bilateral knees, no distinct calf tenderness), Wearing bilateral knee immobilizers and SCDs, Bandages around both knees, No active bleeding/oozing through bandages. absent: Calf Tenderness, Full ROM - Neurological Exam Neurological Exam: Alert, Awake - Psychiatric Exam Psychiatric exam: Normal Affect, Normal Mood - Skin Skin Exam: Dry, Intact, Normal Color, Warm Assessment and Plan (1) Dilated cardiomyopathy Assessment & Plan: EKG 03/17/17: Unusual P axis and short [place], probable junctional tachycardia, Voltage criteria for left ventricular hypertrophy, T wave abnormality (consider lateral ischemia), Prolonged QT, Abnormal ECG EKG 03/18/17: Normal sinus rhythm, Moderate voltage criteria for LVH, may be normal variant, T wave abnormality (consider lateral ischemia), Prolonged QT, Abnormal ECG EKG 03/27/17: Normal sinus rhythm at 99bpm, Minimal voltage criteria for LVH ( may be normal variant), Nonspecific T wave abnormality, Prolonged QT at 477, Abnormal ECG EKG 03/30/17: Normal sinus rhythm at 100bpm, Voltage criteria for left ventricular hypertrophy, Nonspecific T wave abnormality, Prolonged QT at 490, Abnormal ECG Echo 09/25/15: LVEF 32%, Dilated LV with severe global hypokinesis, Mod-Severe MR, Mod TR, Mod-Severe Pulm HTN (PASP = 55mmHG) Echo 03/18/17: LVEF 25%, Dilated LV with normal thickness, elevated diastolic filling pressures, no evidence of intraluminal thrombus, dilated LA, mild MR, normal aortic root, moderate TR, elevated pulm systolic pressures (80mmHg), right ICD lead noted Trops (admit --> most recent): 0.1450, 0.1910 -Hx Cardiomyopathy with EF 25%, 2/2 to poorly controlled HTN (pt frequently noted to be non-compliant) -s/p ICD; normal fxn as per interrogation during 03/17/17-03/21/17 admission -continue to medically manage Status: Chronic (2) Elevated troponin Assessment & Plan: EKG 03/17/17: Unusual P axis and short AZ, probable junctional tachycardia, Voltage criteria for left ventricular hypertrophy, T wave abnormality (consider lateral ischemia), Prolonged QT, Abnormal ECG EKG 03/18/17: Normal sinus rhythm, Moderate voltage criteria for LVH, may be normal variant, T wave abnormality (consider lateral ischemia), Prolonged QT, Abnormal ECG EKG 03/27/17: Normal sinus rhythm at 99bpm, Minimal voltage criteria for LVH ( may be normal variant), Nonspecific T wave abnormality, Prolonged QT at 477, Abnormal ECG EKG 03/30/17: Normal sinus rhythm at 100bpm, Voltage criteria for left ventricular hypertrophy, Nonspecific T wave abnormality, Prolonged QT at 490, Abnormal ECG Echo 09/25/15: LVEF 32%, Dilated LV with severe global hypokinesis, Mod-Severe MR, Mod TR, Mod-Severe Pulm HTN (PASP = 55mmHG) Echo 03/18/17: LVEF 25%, Dilated LV with normal thickness, elevated diastolic filling pressures, no evidence of intraluminal thrombus, dilated LA, mild MR, normal aortic root, moderate TR, elevated pulm systolic pressures (80mmHg), right ICD lead noted Trops (admit --> most recent): 0.1450, 0.1910 -Renal leak vs leak 2/2 RV strain from fluid overload; less likely ACS/NSTEMI -Hx of Cardiomyopathy s/p ICD secondary to poorly controlled HTN, EF 25% -Pending HD today (on MWF schedule) -Cardiac stable, hemodynamically stable, No chest pain prior to/during this admission, ICD normal fxn as per interrogation during 03/17-03/21 admission -Continue medical management, HD as per Nephro Status: Chronic (3) HTN (hypertension) Assessment & Plan: -Intermittently elevated BPs, improved since HD yesterday -Cardiomyopathy 2/2 poorly controlled HTN, frequently noted to be non-compliant with med regimen and followup -Continue daily Imdur and Lisinopril, BID Metoprolol -continue to monitor Status: Chronic (4) ESRD needing dialysis Assessment & Plan: Trops (admit --> most recent): 0.1450, 0.1910 -HD MWF, continue as per Nephro -elevated trops may be due to renal leak vs RV strain from fluid overload, continue to monitor Status: Chronic (5) Pre-operative clearance Assessment & Plan: -Cardiac clearance for Bilateral Patellar tendon repair * Page score: 3 (1% risk) * Detsky score: 15 (low risk) * David score: 2 (6.6% risk) -Benefits outweigh risk, cleared from cardiac standpoint Status: Acute - Assessment and Plan (Free Text) Assessment: Case discussed with Dr. Skinner. <Yair Skinner - Last Filed: 04/06/17 10:14> Objective - Vital Signs/Intake and Output Vital Signs (last 24 hours): Temp Pulse Resp BP Pulse Ox 99.1 F 88 20 119/68 100 04/05/17 15:00 04/05/17 15:00 04/05/17 15:00 04/05/17 17:23 04/05/17 15:00 - Labs Labs: 04/05/17 08:16 04/05/17 08:16 PT 14.7 SECONDS (9.7-12.2) H 04/03/17 06:17 INR 1.3 04/03/17 06:17 APTT 32 SECONDS (21-34) 04/03/17 06:17 Attending/Attestation - Attestation I have personally seen and examined this patient.: Yes I have fully participated in the care of the patient.: Yes I have reviewed all pertinent clinical information, including history, physical exam and plan: Yes Notes (Text): 04/06/17 10:14 tolerating dialysis knees stable pain under control BP stable
--- NOTE | 2017-04-04 12:08 | CP.PCM.PN ---
Subjective - Date & Time of Evaluation Date of Evaluation: 04/04/17 Time of Evaluation: 07:00 - Subjective Subjective: Patient states pain is tolerable, but concerned about pain when he is moving to go to dialysis. He says the pain is getting worse today. He says he still has a little tingling in his and side of knees. Advised pt tingling and increased pain is due to block wearing off and is to be expected. Pain medication will be adjusted. Objective - Vital Signs/Intake and Output Vital Signs (last 24 hours): Temp Pulse Resp BP Pulse Ox 98.6 F 102 H 16 153/88 H 97 04/04/17 11:19 04/04/17 11:19 04/04/17 11:19 04/04/17 12:00 04/04/17 09:00 Intake and Output: 04/04/17 04/04/17 06:59 18:59 Intake Total 650 375 Output Total 55 Balance 595 375 - Medications Medications: Current Medications Acetaminophen (Tylenol 325mg Tab) 650 mg PO Q6 PRN PRN Reason: Pain, Mild (1-3) Albuterol/Ipratropium (Duoneb 3 Mg/0.5 Mg (3 Ml) Ud) 3 ml INH RQ6 PRN PRN Reason: Shortness of Breath Cinacalcet (Sensipar) 30 mg PO DAILY [facility] Last Admin: 04/04/17 10:33 Dose: Not Given Epoetin Stephen (Procrit) 10,000 unit IV MWF [facility] Stop: 04/08/17 09:01 Last Admin: 04/04/17 10:09 Dose: 10,000 unit Famotidine (Pepcid) 20 mg PO DAILY [facility] Last Admin: 04/04/17 10:33 Dose: Not Given Hydromorphone HCl (Dilaudid) 0.5 mg IVP Q6H PRN PRN Reason: Pain, severe (8-10) Isosorbide Mononitrate (Imdur) 30 mg PO DAILY [facility] Last Admin: 04/04/17 10:33 Dose: Not Given Lisinopril (Zestril) 10 mg PO DAILY [facility] Last Admin: 04/04/17 10:33 Dose: Not Given Metoprolol Tartrate (Lopressor) 25 mg PO BID [facility] Last Admin: 04/04/17 10:33 Dose: Not Given Oxycodone/Acetaminophen (Percocet 5/325 Mg Tab) 1 tab PO Q4H PRN PRN Reason: Pain, Mild (1-3) Stop: 04/06/17 08:31 Sevelamer Carbonate (Renvela) 2,400 mg PO TIDCC [facility] Last Admin: 04/04/17 08:24 Dose: 2,400 mg - Labs Labs: 04/04/17 07:18 04/04/17 07:18 PT 14.7 SECONDS (9.7-12.2) H 04/03/17 06:17 INR 1.3 04/03/17 06:17 APTT 32 SECONDS (21-34) 04/03/17 06:17 - Extremities Exam Additional comments: BLE: +ROM ankle/toes, sensation intact, +DP/PT pulses, calves soft NT neg homans +hemovac on left. Assessment and Plan (1) Rupture of left patellar tendon Assessment & Plan: POD#1 s/p bilateral patellar tendon repairs -knee immob at all times -WBAT in immob -PT/OT -for transfusion during HD today -labs in am -d/c planning -march restart anticoagulation 23 hrs post op, defer to medical team due to HD and anemia -d/w Dr. Finley, agrees with above Status: Acute (2) Rupture of right patellar tendon Status: Acute
[2017-04-04 16:27] VITALS: RESP 20
[2017-04-04] MEDS: Oxycodone/Acetaminophen 5/325 mg Tab PO PRN ×2 (17:07→21:33)
[2017-04-05] MEDS: Oxycodone/Acetaminophen 5/325 mg Tab PO PRN ×5 (01:29→18:23)
--- NOTE | 2017-04-05 06:50 | CP.PCM.PN ---
Subjective - Date & Time of Evaluation Date of Evaluation: 04/04/17 Time of Evaluation: 12:00 - Subjective Subjective: SEEN ON RENAL F/U SEEN ON HD GETTING 2 UNITS PRBC ON HD FEELS IMPROVED C/O JARRETT KNEE PAIN .. S/P JARRETT PATELLAR TENDON REPAIR Objective - Vital Signs/Intake and Output Vital Signs (last 24 hours): Temp Pulse Resp BP Pulse Ox 97.4 F L 87 20 109/71 98 04/04/17 23:50 04/05/17 00:30 04/04/17 23:50 04/04/17 23:50 04/04/17 23:50 Intake and Output: 04/04/17 04/05/17 18:59 06:59 Intake Total 375 500 Output Total 5 0 Balance 370 500 - Medications Medications: Current Medications Acetaminophen (Tylenol 325mg Tab) 650 mg PO Q6 PRN PRN Reason: Pain, Mild (1-3) Albuterol/Ipratropium (Duoneb 3 Mg/0.5 Mg (3 Ml) Ud) 3 ml INH RQ6 PRN PRN Reason: Shortness of Breath Cinacalcet (Sensipar) 30 mg PO DAILY [facility] Last Admin: 04/04/17 13:23 Dose: 30 mg Epoetin Stephen (Procrit) 10,000 unit IV MWF [facility] Stop: 04/08/17 09:01 Last Admin: 04/04/17 10:09 Dose: 10,000 unit Famotidine (Pepcid) 20 mg PO DAILY [facility] Last Admin: 04/04/17 13:22 Dose: 20 mg Hydromorphone HCl (Dilaudid) 0.5 mg IVP Q6H PRN PRN Reason: Pain, severe (8-10) Last Admin: 04/04/17 13:18 Dose: 0.5 mg Isosorbide Mononitrate (Imdur) 30 mg PO DAILY [facility] Last Admin: 04/04/17 10:33 Dose: Not Given Lisinopril (Zestril) 10 mg PO DAILY [facility] Last Admin: 04/04/17 10:33 Dose: Not Given Metoprolol Tartrate (Lopressor) 25 mg PO BID [facility] Last Admin: 04/04/17 17:06 Dose: 25 mg Oxycodone/Acetaminophen (Percocet 5/325 Mg Tab) 1 tab PO Q4H PRN PRN Reason: Pain, Mild (1-3) Stop: 04/06/17 08:31 Oxycodone/Acetaminophen (Percocet 5/325 Mg Tab) 2 tab PO Q4H PRN PRN Reason: Pain, moderate (4-7) Stop: 04/07/17 14:31 Last Admin: 04/05/17 05:29 Dose: 2 tab Sevelamer Carbonate (Renvela) 2,400 mg PO TIDCC [facility] Last Admin: 04/04/17 17:06 Dose: 2,400 mg - Labs Labs: 04/04/17 07:18 04/04/17 07:18 PT 14.7 SECONDS (9.7-12.2) H 04/03/17 06:17 INR 1.3 04/03/17 06:17 APTT 32 SECONDS (21-34) 04/03/17 06:17 Assessment and Plan - Assessment and Plan (Free Text) Assessment: ESRD ON HD M W F ANEMIA OF CKD .. ON EPO .. RECIEVED 2 U PRBC MULTIPLE CO MORBIDITIES P : C/O CURRENT CARE FOR REHAB TRANSFERE .. WILL SPEAK WITH THE SW ADD ELIAZAR GARCIA
[2017-04-05 08:27] LABS: BASO % 0.3 % (0.0-2.0); EOS % 8.3 % (0.0-4.0); HEMATOCRIT 25.7 % (35.0-51.0); LYMPH # 1.2 K/uL (1.0-4.3); LYMPH % 9.8 % (20.0-40.0); MEAN CELL VOLUME 88.8 fL (80.0-94.0); MEAN CORPUSCULAR HEMOGLOBIN 29.2 pg (27.0-31.0); MEAN CORPUSCULAR HGB CONC 32.9 g/dL (33.0-37.0); MONO # 1.5 K/uL (0.0-0.8); MONO % 12.2 % (0.0-10.0); PLATELET COUNT 454 K/uL (130-400); RED CELL DISTRIBUTION WIDTH 16.8 % (11.5-14.5)
[2017-04-05 08:40] LABS: POTASSIUM 4.8 mmol/L (3.6-5.2)
[2017-04-05 08:42] LABS: ALB/GLOB RATIO 0.9 (1.0-2.1); BILIRUBIN,TOTAL 1.2 mg/dL (0.2-1.3); TOTAL PROTEIN 7.4 g/dL (6.3-8.3)
[2017-04-05 08:43] LABS: MAGNESIUM 2.5 mg/dL (1.6-2.3)
--- NOTE | 2017-04-05 09:17 | CP.PCM.PN ---
<Lino Vee - Last Filed: 04/05/17 09:15> Subjective - Date & Time of Evaluation Date of Evaluation: 04/05/17 Time of Evaluation: 07:45 - Subjective Subjective: Cardiology Progress Note Dr. Skinner Patient seen and examined at bedside. Resting in bed, no acute distress evident. No acute events overnight. POD #2 for for surgical repair of bilateral patellar tendon rupture. Patient reports continued pain in bilateral knees and LE, better controlled today; denies chest pain, or worsening SOB ( mild SOB at baseline per pt, unchanged). Remaining ROS negative. S/p HD yesterday. Objective - Vital Signs/Intake and Output Vital Signs (last 24 hours): Temp Pulse Resp BP Pulse Ox 98.5 F 97 H 20 149/94 H 98 04/05/17 08:32 04/05/17 08:32 04/05/17 08:32 04/05/17 08:32 04/05/17 08:32 Intake and Output: 04/05/17 04/05/17 06:59 18:59 Intake Total 500 Output Total 0 Balance 500 - Medications Medications: Current Medications Acetaminophen (Tylenol 325mg Tab) 650 mg PO Q6 PRN PRN Reason: Pain, Mild (1-3) Albuterol/Ipratropium (Duoneb 3 Mg/0.5 Mg (3 Ml) Ud) 3 ml INH RQ6 PRN PRN Reason: Shortness of Breath Ascorbic Acid (Vitamin C 500 Mg Tab) 500 mg PO DAILY [facility] Cinacalcet (Sensipar) 30 mg PO DAILY [facility] Last Admin: 04/04/17 13:23 Dose: 30 mg Epoetin Stephen (Procrit) 10,000 unit IV MWF [facility] Stop: 04/08/17 09:01 Last Admin: 04/04/17 10:09 Dose: 10,000 unit Famotidine (Pepcid) 20 mg PO DAILY [facility] Last Admin: 04/04/17 13:22 Dose: 20 mg Hydromorphone HCl (Dilaudid) 0.5 mg IVP Q6H PRN PRN Reason: Pain, severe (8-10) Last Admin: 04/04/17 13:18 Dose: 0.5 mg Isosorbide Mononitrate (Imdur) 30 mg PO DAILY [facility] Last Admin: 05/31/17 10:33 Dose: Not Given Lisinopril (Zestril) 10 mg PO DAILY [facility] Last Admin: 04/04/17 10:33 Dose: Not Given Metoprolol Tartrate (Lopressor) 25 mg PO BID [facility] Last Admin: 04/04/17 17:06 Dose: 25 mg Oxycodone/Acetaminophen (Percocet 5/325 Mg Tab) 1 tab PO Q4H PRN PRN Reason: Pain, Mild (1-3) Stop: 04/06/17 08:31 Oxycodone/Acetaminophen (Percocet 5/325 Mg Tab) 2 tab PO Q4H PRN PRN Reason: Pain, moderate (4-7) Stop: 04/07/17 14:31 Last Admin: 04/05/17 05:29 Dose: 2 tab Sevelamer Carbonate (Renvela) 2,400 mg PO TIDCC [facility] Last Admin: 04/05/17 08:36 Dose: 2,400 mg Vitamin B Complex/Vit C/Folic Acid (Nephro-Lilia) 1 tab PO DAILY [facility] - Labs Labs: 04/05/17 08:16 04/05/17 08:16 PT 14.7 SECONDS (9.7-12.2) H 04/03/17 06:17 INR 1.3 04/03/17 06:17 APTT 32 SECONDS (21-34) 04/03/17 06:17 - Additional Findings Additional findings: - Constitutional Appears: Non-toxic, No Acute Distress, Chronically Ill - Head Exam Head Exam: ATRAUMATIC, NORMAL INSPECTION, NORMOCEPHALIC - Eye Exam Eye Exam: EOMI, Normal appearance. absent: Conjunctival injection, Scleral icterus, Conjunctival palor - ENT Exam ENT Exam: Mucous Membranes Moist. absent: Mucous Membranes Dry - Neck Exam Neck Exam: Full ROM - Respiratory Exam Respiratory Exam: Decreased Breath Sounds, Clear to Ausculation Bilateral, NORMAL BREATHING PATTERN. absent: Accessory Muscle Use, Chest Wall Tenderness, Rales, Rhonchi, Wheezes, Respiratory Distress - Cardiovascular Exam Cardiovascular Exam: Tachycardia, REGULAR RHYTHM, +S1, +S2. absent: Bradycardia , Irregular Rhythm, JVD, RRR - GI/Abdominal Exam GI & Abdominal Exam: Soft, Normal Bowel Sounds. absent: Distended, Firm, Rigid , Diminished Bowel Sounds, Hypoactive Bowel Sounds - Extremities Exam Extremities Exam: Tenderness (acutely tender at bilateral knees, mild tenderness surrounding bilateral knees, no distinct calf tenderness), Wearing bilateral knee immobilizers and SCDs, Bandages around both knees, No active bleeding/oozing through bandages. absent: Calf Tenderness, Full ROM - Neurological Exam Neurological Exam: Alert, Awake - Psychiatric Exam Psychiatric exam: Normal Affect, Normal Mood - Skin Skin Exam: Dry, Intact, Normal Color, Warm Assessment and Plan (1) Dilated cardiomyopathy Assessment & Plan: EKG 03/17/17: Unusual P axis and short KS, probable junctional tachycardia, Voltage criteria for left ventricular hypertrophy, T wave abnormality (consider lateral ischemia), Prolonged QT, Abnormal ECG EKG 03/18/17: Normal sinus rhythm, Moderate voltage criteria for LVH, may be normal variant, T wave abnormality (consider lateral ischemia), Prolonged QT, Abnormal ECG EKG 03/27/17: Normal sinus rhythm at 99bpm, Minimal voltage criteria for LVH ( may be normal variant), Nonspecific T wave abnormality, Prolonged QT at 477, Abnormal ECG EKG 03/30/17: Normal sinus rhythm at 100bpm, Voltage criteria for left ventricular hypertrophy, Nonspecific T wave abnormality, Prolonged QT at 490, Abnormal ECG Echo 09/25/15: LVEF 32%, Dilated LV with severe global hypokinesis, Mod-Severe MR, Mod TR, Mod-Severe Pulm HTN (PASP = 55mmHG) Echo 03/18/17: LVEF 25%, Dilated LV with normal thickness, elevated diastolic filling pressures, no evidence of intraluminal thrombus, dilated LA, mild MR, normal aortic root, moderate TR, elevated pulm systolic pressures (80mmHg), right ICD lead noted Trops (admit --> most recent): 0.1450, 0.1910 -Hx Cardiomyopathy with EF 25%, 2/2 to poorly controlled HTN (pt frequently noted to be non-compliant) -s/p ICD; normal fxn as per interrogation during 03/17/17-03/21/17 admission -continue to medically manage Status: Chronic (2) Elevated troponin Assessment & Plan: EKG 03/17/17: Unusual P axis and short KS, probable junctional tachycardia, Voltage criteria for left ventricular hypertrophy, T wave abnormality (consider lateral ischemia), Prolonged QT, Abnormal ECG EKG 03/18/17: Normal sinus rhythm, Moderate voltage criteria for LVH, may be normal variant, T wave abnormality (consider lateral ischemia), Prolonged QT, Abnormal ECG EKG 03/27/17: Normal sinus rhythm at 99bpm, Minimal voltage criteria for LVH ( may be normal variant), Nonspecific T wave abnormality, Prolonged QT at 477, Abnormal ECG EKG 03/30/17: Normal sinus rhythm at 100bpm, Voltage criteria for left ventricular hypertrophy, Nonspecific T wave abnormality, Prolonged QT at 490, Abnormal ECG Echo 09/25/15: LVEF 32%, Dilated LV with severe global hypokinesis, Mod-Severe MR, Mod TR, Mod-Severe Pulm HTN (PASP = 55mmHG) Echo 03/18/17: LVEF 25%, Dilated LV with normal thickness, elevated diastolic filling pressures, no evidence of intraluminal thrombus, dilated LA, mild MR, normal aortic root, moderate TR, elevated pulm systolic pressures (80mmHg), right ICD lead noted Trops (admit --> most recent): 0.1450, 0.1910 -Renal leak vs leak 2/2 RV strain from fluid overload; less likely ACS/NSTEMI -Hx of Cardiomyopathy s/p ICD secondary to poorly controlled HTN, EF 25% -Pending HD today (on MWF schedule) -Cardiac stable, hemodynamically stable, No chest pain prior to/during this admission, ICD normal fxn as per interrogation during 03/17-03/21 admission -Continue medical management, HD as per Nephro Status: Chronic (3) HTN (hypertension) Assessment & Plan: -Intermittently elevated BPs, improved since HD yesterday -Cardiomyopathy 2/2 poorly controlled HTN, frequently noted to be non-compliant with med regimen and followup -Continue daily Imdur and Lisinopril, BID Metoprolol -continue to monitor Status: Chronic (4) ESRD needing dialysis Assessment & Plan: Trops (admit --> most recent): 0.1450, 0.1910 -HD MWF, continue as per Nephro -elevated trops may be due to renal leak vs RV strain from fluid overload, continue to monitor Status: Chronic (5) Pre-operative clearance Assessment & Plan: -Cardiac clearance for Bilateral Patellar tendon repair * Page score: 3 (1% risk) * Detsky score: 15 (low risk) * David score: 2 (6.6% risk) -Benefits outweigh risk, cleared from cardiac standpoint Status: Acute - Assessment and Plan (Free Text) Assessment: Case discussed with Dr. Skinner. <Yair Skinner - Last Filed: 04/06/17 10:13> Objective - Vital Signs/Intake and Output Vital Signs (last 24 hours): Temp Pulse Resp BP Pulse Ox 99.1 F 88 20 119/68 100 04/05/17 15:00 04/05/17 15:00 04/05/17 15:00 04/05/17 17:23 04/05/17 15:00 - Labs Labs: 04/05/17 08:16 04/05/17 08:16 PT 14.7 SECONDS (9.7-12.2) H 04/03/17 06:17 INR 1.3 04/03/17 06:17 APTT 32 SECONDS (21-34) 04/03/17 06:17 Attending/Attestation - Attestation I have personally seen and examined this patient.: Yes I have fully participated in the care of the patient.: Yes I have reviewed all pertinent clinical information, including history, physical exam and plan: Yes Notes (Text): 04/06/17 10:13 pt successful surgery continue ICD f/u in office
[2017-04-05 09:34] LABS: EOSINOPHIL 8 % (0-4); NEUTROPHIL 71 % (50-75); TOTAL CELLS COUNTED 100
[2017-04-05] MEDS ORDERED: Multivitamin Vitamin B Complex (Nephro-Vite) Tab PO SCH (10:00)
--- NOTE | 2017-04-05 11:15 | CP.PCM.DIS ---
<Chela Bartholomew - Last Filed: 04/08/17 22:49> Provider - Provider Date of Admission: 03/30/17 15:38 Attending physician: DO Alfredito Sorenson MD Primary care physician: None Consults: Dr. Finley ortho Dr. Skinner cardiology Dr. Beth nephrology Time Spent in preparation of Discharge (in minutes): 45 Hospital Course - Lab Results Lab Results: Micro Results 04/01/17 07:00 Blood Blood Culture - Preliminary Gram Positive Cocci 04/01/17 07:00 Blood Gram Stain - Final 04/01/17 07:00 Blood S.aureus & Coag-Neg Staph PNA FISH - Preliminary 04/01/17 07:00 Blood Blood Culture - Preliminary Gram Positive Cocci 04/01/17 07:00 Blood Gram Stain - Final Most Recent Lab Values WBC 12.0 K/uL (4.8-10.8) H 04/05/17 08:16 RBC 2.89 Mil/uL (4.40-5.90) L 04/05/17 08:16 Hgb 8.5 g/dL (12.0-18.0) L 04/05/17 08:16 Hct 25.7 % (35.0-51.0) L 04/05/17 08:16 MCV 88.8 fL (80.0-94.0) 04/05/17 08:16 MCH 29.2 pg (27.0-31.0) 04/05/17 08:16 MCHC 32.9 g/dL (33.0-37.0) L 04/05/17 08:16 RDW 16.8 % (11.5-14.5) H 04/05/17 08:16 Plt Count 454 K/uL (130-400) H 04/05/17 08:16 MPV 7.0 fL (7.2-11.7) L 04/05/17 08:16 Neut % (Auto) 69.4 % (50.0-75.0) 04/05/17 08:16 Lymph % (Auto) 9.8 % (20.0-40.0) L 04/05/17 08:16 [place] % (Auto) 12.2 % (0.0-10.0) H 04/05/17 08:16 Eos % (Auto) 8.3 % (0.0-4.0) H 04/05/17 08:16 Baso % (Auto) 0.3 % (0.0-2.0) 04/05/17 08:16 Neut # 8.4 K/uL (1.8-7.0) H 04/05/17 08:16 Lymph # 1.2 K/uL (1.0-4.3) 04/05/17 08:16 [place] # 1.5 K/uL (0.0-0.8) H 04/05/17 08:16 Eos # 1.0 K/uL (0.0-0.7) H 04/05/17 08:16 Baso # 0.0 K/uL (0.0-0.2) 04/05/17 08:16 Neutrophils % (Manual) 71 % (50-75) 04/05/17 08:16 Band Neutrophils % 1 % (0-2) 04/01/17 11:44 Lymphocytes % (Manual) 9 % (20-40) L 04/05/17 08:16 Monocytes % (Manual) 12 % (0-10) H 04/05/17 08:16 Eosinophils % (Manual) 8 % (0-4) H 04/05/17 08:16 Basophils % (Manual) 1 % (0-2) 03/31/17 11:42 Metamyelocytes % 1 % (0-0) H 04/01/17 11:44 Toxic Granulation Present 03/31/17 11:42 Platelet Estimate Slightly increased (NORMAL) H 04/05/17 08:16 Large Platelets Present 03/31/17 11:42 Polychromasia Slight 04/01/17 11:44 Hypochromasia (manual) Slight 04/05/17 08:16 Poikilocytosis (manual Slight 04/05/17 08:16 Anisocytosis (manual) Slight 04/05/17 08:16 Target Cells Slight 04/05/17 08:16 PT 14.7 SECONDS (9.7-12.2) H 04/03/17 06:17 INR 1.3 04/03/17 06:17 APTT 32 SECONDS (21-34) 04/03/17 06:17 Sodium 135 mmol/L (132-148) 04/05/17 08:16 Potassium 4.8 mmol/L (3.6-5.2) 04/05/17 08:16 Chloride 91 mmol/L (98-107) L 04/05/17 08:16 Carbon Dioxide 29 mmol/L (22-30) 04/05/17 08:16 Anion Gap 20 (10-20) 04/05/17 08:16 BUN 60 mg/dL (9-20) H 04/05/17 08:16 Creatinine 9.4 MG/DL (0.8-1.5) H* D 04/05/17 08:16 Est GFR ( Amer) 8 04/05/17 08:16 Est GFR (Non-Af Amer) 6 04/05/17 08:16 Random Glucose 89 mg/dL (75-110) 04/05/17 08:16 Calcium 9.0 mg/dl (8.6-10.4) 04/05/17 08:16 Phosphorus 7.0 mg/dL (2.5-4.5) H 04/05/17 08:16 Magnesium 2.5 mg/dL (1.6-2.3) H 04/05/17 08:16 Total Bilirubin 1.2 mg/dL (0.2-1.3) 04/05/17 08:16 AST 22 U/L (17-59) 04/05/17 08:16 ALT 14 U/L (21-72) L D 04/05/17 08:16 Alkaline Phosphatase 596 U/L (38-126) H D 04/05/17 08:16 Total Creatine Kinase 99 U/L (55-170) 03/30/17 22:56 CK-MB (Mass) 0.29 ng/mL (0.0-3.38) 03/30/17 22:56 Troponin I 0.1450 ng/mL (0.00-0.120) H* 03/30/17 16:13 Troponin I, Quant 0.1910 ng/mL (0.00-0.120) H* 03/30/17 22:56 NT-Pro-B Natriuret Pep 99687 pg/mL (0-450) H 03/30/17 16:13 Total Protein 7.4 g/dL (6.3-8.3) 04/05/17 08:16 Albumin 3.4 g/dL (3.5-5.0) L 04/05/17 08:16 Globulin 3.9 gm/dL (2.2-3.9) 04/05/17 08:16 Albumin/Globulin Ratio 0.9 (1.0-2.1) L 04/05/17 08:16 Blood Type O POSITIVE 04/02/17 11:05 Antibody Screen Negative 04/02/17 11:05 - Hospital Course Hospital Course: Upon Admission 31M with PMHx of ESRD on HD, HTN, asthma, secondary hyperparathyroidism, anemia of CKD, cardiomyopathy, and b/l patellar tendon rupture on 03/17 presented to the ER due to left knee pain. Patient reported the pain had worsened since then. Patient had an appointment with Dr. Diaz outpatient on April 04 but had to come in as he wants something done promptly. Other ROS was negative. Patient was admitted to [facility] due to being ESRD patient on HD and having a hx of cardiomyopathy with a AICD placed 2015. Cardiology Dr. Skinner was consulted and Dr. Beth nephrology was consulted. For orthopedics, Dr. Finley was consulted. When patient was medically cleared for the OR, he was taken in for bilateral patellar tendon repair on 04/03. Patient tolerated procedure well and was placed in knee immobilizers. Dr. Simeon and physical therapy both advised patient to be discharged to [facility]. Patient was deemed medically stable for [facility] on 04/05. 1) Bilateral patellar tendon rupture: patient to be discharged to [facility] and f/u with Dr. Finley in 7 days 2) Dilated cardiomyopathy s/p AICD placement: continue home meds- f/u with cardiology in 10 days 3) ESRD on HD: continue HD schedule and home meds 4) HTN: continue home meds 5) Hx Asthma: continue home meds 6) Hx secondary hypoparathyroidism: continue home meds 7) Anemia of CKD: continue home meds 8) Leukocytosis: continue home meds Upon Discharge Patient stable for discharge to [facility] as per hospitalist Dr. Ross and Orthopedics Dr. Finley Patient to continue medications as prescribed. Patient to continue HD schedule MWF Patient encouraged to work with physical therapy and be WBAT in knee immobilizers with walker/crutches. Patient to keep knee immobilizers at all times, not to be removed except for dressing changes, knee must stay in extension. Dressings can be changed every 2 days until dry. Patient to follow up with Orthopedics Dr. Finley in 7 days. Patient to also follow up with PMD within 10 days. If symptoms persist or worsen patient to visit ER immediately Instructions discussed in detail with patient who understands and agrees. Discharge Exam - Head Exam Head Exam: NORMAL INSPECTION - Eye Exam Eye Exam: EOMI, Normal appearance, PERRL. absent: Conjunctival injection, Scleral icterus Pupil Exam: NORMAL ACCOMODATION - ENT Exam ENT Exam: Mucous Membranes Moist - Neck Exam Neck exam: Full Rom, Normal Inspection - Respiratory Exam Respiratory Exam: Clear to PA & Lateral, NORMAL BREATHING PATTERN, UNREMARKABLE. absent: Accessory Muscle Use, Rales, Rhonchi, Wheezes - Cardiovascular Exam Cardiovascular Exam: Tachycardia, +S1, +S2, Systolic Murmur - GI/Abdominal Exam GI & Abdominal Exam: Normal Bowel Sounds, Soft. absent: Firm, Guarding, Rigid, Tenderness - Extremities Exam Extremities exam: joint swelling (b/l knees approp to surgery), tenderness ( approp to surgery) Additional comments: b/l knee immobilizers in place L woundvac in place dressings c/d/i b/l LUE fistula with thrill - Back Exam Back exam: NORMAL INSPECTION. absent: rash noted, tenderness - Neurological Exam Neurological exam: Alert, CN II-XII Intact, Oriented x3 - Psychiatric Exam Psychiatric exam: Normal Affect, Normal Mood - Skin Skin Exam: Dry, Intact, Normal Color, Warm Discharge Plan - Follow Up Plan Condition: STABLE Disposition: HOME/ ROUTINE Instructions: Renal Failure Diet (DC), Dialysis Diet (DC), Patella Tendon Repair (DC), Patella Tendon Repair (GEN), Hypertension (DC), Hypertension (GEN) , End Stage Kidney Disease (DC), Knee Immobilizer (DC) Additional Instructions: Patient stable for discharge to [facility] as per hospitalist Dr. Ross and Orthopedics Dr. Finley Patient to continue medications as prescribed. Patient to continue HD schedule MWF Patient encouarged to work with physical therapy and be WBAT in knee immobilizers with walker/crutches. Patient to keep knee immobilizers at all times, not to be removed except for dressing changes, knee must stay in extension. Dressings can be changed every 2 days until dry. Patient to follow up with Orthopedics Dr. Finley in 7 days. Patient to also follow up with PMD within 10 days. If symptoms persist or worsen patient to visit ER immediately Instructions discussed in detail with patient who understands and agrees. Referrals: Jonathan Finley MD [Staff Provider] - <Alfredito Ross - Last Filed: 05/10/17 12:29> Provider - Provider Date of Admission: 03/30/17 15:38 Attending physician: Ivanna Underwood DO Hospital Course - Lab Results Lab Results: Micro Results 04/01/17 07:00 Blood S.aureus & Coag-Neg Staph PNA FISH - Final 04/01/17 07:00 Blood Blood Culture - Final Coagulase Neg Staphylococcus 04/01/17 07:00 Blood Gram Stain - Final 04/01/17 07:00 Blood Blood Culture - Final Coagulase Neg Staphylococcus 04/01/17 07:00 Blood Gram Stain - Final Most Recent Lab Values WBC 12.0 K/uL (4.8-10.8) H 04/05/17 08:16 RBC 2.89 Mil/uL (4.40-5.90) L 04/05/17 08:16 Hgb 8.5 g/dL (12.0-18.0) L 04/05/17 08:16 Hct 25.7 % (35.0-51.0) L 04/05/17 08:16 MCV 88.8 fL (80.0-94.0) 04/05/17 08:16 MCH 29.2 pg (27.0-31.0) 04/05/17 08:16 MCHC 32.9 g/dL (33.0-37.0) L 04/05/17 08:16 RDW 16.8 % (11.5-14.5) H 04/05/17 08:16 Plt Count 454 K/uL (130-400) H 04/05/17 08:16 MPV 7.0 fL (7.2-11.7) L 04/05/17 08:16 Neut % (Auto) 69.4 % (50.0-75.0) 04/05/17 08:16 Lymph % (Auto) 9.8 % (20.0-40.0) L 04/05/17 08:16 [place] % (Auto) 12.2 % (0.0-10.0) H 04/05/17 08:16 Eos % (Auto) 8.3 % (0.0-4.0) H 04/05/17 08:16 Baso % (Auto) 0.3 % (0.0-2.0) 04/05/17 08:16 Neut # 8.4 K/uL (1.8-7.0) H 04/05/17 08:16 Lymph # 1.2 K/uL (1.0-4.3) 04/05/17 08:16 [place] # 1.5 K/uL (0.0-0.8) H 04/05/17 08:16 Eos # 1.0 K/uL (0.0-0.7) H 04/05/17 08:16 Baso # 0.0 K/uL (0.0-0.2) 04/05/17 08:16 Neutrophils % (Manual) 71 % (50-75) 04/05/17 08:16 Band Neutrophils % 1 % (0-2) 04/01/17 11:44 Lymphocytes % (Manual) 9 % (20-40) L 04/05/17 08:16 Monocytes % (Manual) 12 % (0-10) H 04/05/17 08:16 Eosinophils % (Manual) 8 % (0-4) H 04/05/17 08:16 Basophils % (Manual) 1 % (0-2) 03/31/17 11:42 Metamyelocytes % 1 % (0-0) H 04/01/17 11:44 Toxic Granulation Present 03/31/17 11:42 Platelet Estimate Slightly increased (NORMAL) H 04/05/17 08:16 Large Platelets Present 03/31/17 11:42 Polychromasia Slight 04/01/17 11:44 Hypochromasia (manual) Slight 04/05/17 08:16 Poikilocytosis (manual Slight 04/05/17 08:16 Anisocytosis (manual) Slight 04/05/17 08:16 Target Cells Slight 04/05/17 08:16 PT 14.7 SECONDS (9.7-12.2) H 04/03/17 06:17 INR 1.3 04/03/17 06:17 APTT 32 SECONDS (21-34) 04/03/17 06:17 Sodium 135 mmol/L (132-148) 04/05/17 08:16 Potassium 4.8 mmol/L (3.6-5.2) 04/05/17 08:16 Chloride 91 mmol/L (98-107) L 04/05/17 08:16 Carbon Dioxide 29 mmol/L (22-30) 04/05/17 08:16 Anion Gap 20 (10-20) 04/05/17 08:16 BUN 60 mg/dL (9-20) H 04/05/17 08:16 Creatinine 9.4 MG/DL (0.8-1.5) H* D 04/05/17 08:16 Est GFR ( Amer) 8 04/05/17 08:16 Est GFR (Non-Af Amer) 6 04/05/17 08:16 Random Glucose 89 mg/dL (75-110) 04/05/17 08:16 Calcium 9.0 mg/dl (8.6-10.4) 04/05/17 08:16 Phosphorus 7.0 mg/dL (2.5-4.5) H 04/05/17 08:16 Magnesium 2.5 mg/dL (1.6-2.3) H 04/05/17 08:16 Total Bilirubin 1.2 mg/dL (0.2-1.3) 04/05/17 08:16 AST 22 U/L (17-59) 04/05/17 08:16 ALT 14 U/L (21-72) L D 04/05/17 08:16 Alkaline Phosphatase 596 U/L (38-126) H D 04/05/17 08:16 Total Creatine Kinase 99 U/L (55-170) 03/30/17 22:56 CK-MB (Mass) 0.29 ng/mL (0.0-3.38) 03/30/17 22:56 Troponin I 0.1450 ng/mL (0.00-0.120) H* 03/30/17 16:13 Troponin I, Quant 0.1910 ng/mL (0.00-0.120) H* 03/30/17 22:56 NT-Pro-B Natriuret Pep 49683 pg/mL (0-450) H 03/30/17 16:13 Total Protein 7.4 g/dL (6.3-8.3) 04/05/17 08:16 Albumin 3.4 g/dL (3.5-5.0) L 04/05/17 08:16 Globulin 3.9 gm/dL (2.2-3.9) 04/05/17 08:16 Albumin/Globulin Ratio 0.9 (1.0-2.1) L 04/05/17 08:16 Blood Type O POSITIVE 04/02/17 11:05 Antibody Screen Negative 04/02/17 11:05 Attending/Attestation - Attestation I have personally seen and examined this patient.: Yes I have fully participated in the care of the patient.: Yes I have reviewed all pertinent clinical information, including history, physical exam and plan: Yes Notes (Text): Patient Seen and examined with the resident. Agree with the resident's evaluation, assessment and plan. 31M with PMHx of ESRD on HD, HTN, asthma, secondary hyperparathyroidism, anemia of CKD, cardiomyopathy, and b/l patellar tendon rupture on 03/17 presented to the ER due to left knee pain. Bilateral patellar tendon rupture hx severe hyperparathyroidism and patient has ESRD on HD POD#1 s/p bilateral patellar tendon repairs Dilated Cardiomyopathy s/p ICD placement ESRD on HD
--- NOTE | 2017-04-05 11:19 | CP.PCM.PN ---
Subjective - Date & Time of Evaluation Date of Evaluation: 04/05/17 Time of Evaluation: 11:13 - Subjective Subjective: PPatient complaining of pain in knees, left worse than right, and a feeling of "tightness" in his left leg. He is very concerned drain is clogged. Advised patient that drain is temporary, and is expected to stop draining and clot after 1-2 days, and this is normal. Denies denies CP/SOB/dizziness/n/v/numbness/ tingling. Objective - Vital Signs/Intake and Output Vital Signs (last 24 hours): Temp Pulse Resp BP Pulse Ox 98.5 F 97 H 20 148/82 98 04/05/17 08:32 04/05/17 08:32 04/05/17 08:32 04/05/17 09:48 04/05/17 08:32 Intake and Output: 04/05/17 04/05/17 06:59 18:59 Intake Total 500 Output Total 0 Balance 500 - Medications Medications: Current Medications Acetaminophen (Tylenol 325mg Tab) 650 mg PO Q6 PRN PRN Reason: Pain, Mild (1-3) Albuterol/Ipratropium (Duoneb 3 Mg/0.5 Mg (3 Ml) Ud) 3 ml INH RQ6 PRN PRN Reason: Shortness of Breath Ascorbic Acid (Vitamin C 500 Mg Tab) 500 mg PO DAILY [facility] Last Admin: 04/05/17 09:48 Dose: 500 mg Cinacalcet (Sensipar) 30 mg PO DAILY [facility] Last Admin: 04/05/17 09:49 Dose: 30 mg Epoetin Stephen (Procrit) 10,000 unit IV MWF [facility] Stop: 04/08/17 09:01 Last Admin: 04/04/17 10:09 Dose: 10,000 unit Famotidine (Pepcid) 20 mg PO DAILY [facility] Last Admin: 04/05/17 09:49 Dose: 20 mg Hydromorphone HCl (Dilaudid) 0.5 mg IVP Q6H PRN PRN Reason: Pain, severe (8-10) Last Admin: 04/04/17 13:18 Dose: 0.5 mg Isosorbide Mononitrate (Imdur) 30 mg PO DAILY [facility] Last Admin: 04/05/17 09:49 Dose: 30 mg Lisinopril (Zestril) 10 mg PO DAILY [facility] Last Admin: 04/05/17 09:48 Dose: 10 mg Metoprolol Tartrate (Lopressor) 25 mg PO BID [facility] Last Admin: 04/05/17 09:48 Dose: 25 mg Oxycodone/Acetaminophen (Percocet 5/325 Mg Tab) 1 tab PO Q4H PRN PRN Reason: Pain, Mild (1-3) Stop: 04/06/17 08:31 Last Admin: 04/05/17 09:49 Dose: 1 tab Oxycodone/Acetaminophen (Percocet 5/325 Mg Tab) 2 tab PO Q4H PRN PRN Reason: Pain, moderate (4-7) Stop: 04/07/17 14:31 Last Admin: 04/05/17 05:29 Dose: 2 tab Sevelamer Carbonate (Renvela) 2,400 mg PO TIDCC [facility] Last Admin: 04/05/17 08:36 Dose: 2,400 mg Vitamin B Complex/Vit C/Folic Acid (Nephro-Lilia) 1 tab PO DAILY [facility] Last Admin: 04/05/17 09:49 Dose: 1 tab - Labs Labs: 04/05/17 08:16 04/05/17 08:16 PT 14.7 SECONDS (9.7-12.2) H 04/03/17 06:17 INR 1.3 04/03/17 06:17 APTT 32 SECONDS (21-34) 04/03/17 06:17 - Constitutional Appears: Well, No Acute Distress - Extremities Exam Additional comments: Dressing changed. no erythema. Left knee hemovac pulled. incision intact, small amount sang drainage noted. Left knee is more swollen than right. sensation intact, +DP/PT pulses bilaterally. +ROM ankles/toes DF/PF/flex/ext. Right knee incision intact. NO erythema. no drainage. knee immobilizers reapplied. Advised patient that he must wear knee immobilizers at all times, and that he is not to bend knee at all or risks damaging repair/retear. He verbalizes understanding and agrees. Assessment and Plan (1) Rupture of left patellar tendon Assessment & Plan: POD#2 s/p b patellar tendon repairs -knee immobilizers at all times, not to be removed except for dressing changes, knee must stay in extension. Dressings can be changed every 2 days until dry. -WBAT in knee immobilizers with walker/crutches -f/u Dr. Finley 1 week call for appointment -VTE proph with lovenox or heparin -d/w Dr. Finley, agrees with above Status: Acute (2) Rupture of right patellar tendon Assessment & Plan: see above Status: Acute
[2017-04-05 16:49] VITALS: PULSE 88; TEMP 99.1; O2SAT 100
[2017-04-05 17:24] VITALS: BP 119/68
--- NOTE | 2017-04-14 18:57 | CP.PCM.PN ---
Subjective - Date & Time of Evaluation Date of Evaluation: 04/14/17 Time of Evaluation: 18:55 - Subjective Subjective: for hd mon stable for same again discussed need of parathyroidectomy in near future. he now agrees chart rev, lab rev Objective - Vital Signs/Intake and Output Vital Signs (last 24 hours): Temp Pulse Resp BP Pulse Ox 99.1 F 88 20 119/68 100 04/05/17 15:00 04/05/17 15:00 04/05/17 15:00 04/05/17 17:23 04/05/17 15:00 - Labs Labs: 04/05/17 08:16 04/05/17 08:16 PT 14.7 SECONDS (9.7-12.2) H 04/03/17 06:17 INR 1.3 04/03/17 06:17 APTT 32 SECONDS (21-34) 04/03/17 06:17 - Constitutional Appears: Non-toxic - Head Exam Head Exam: NORMAL INSPECTION - Eye Exam Eye Exam: Normal appearance - ENT Exam ENT Exam: Mucous Membranes Moist - Respiratory Exam Respiratory Exam: NORMAL BREATHING PATTERN - Cardiovascular Exam Cardiovascular Exam: REGULAR RHYTHM - GI/Abdominal Exam GI & Abdominal Exam: Soft - Neurological Exam Neurological Exam: Alert, Awake, Oriented x3 - Psychiatric Exam Psychiatric exam: Normal Affect, Normal Mood - Skin Skin Exam: Dry, Normal Color, Warm
== END 2017-04-05 18:30 | disposition short-term general hospital (02) | DRG 488 ==
LOC: C.ER 11:08 → C.6T 15:38
PROVIDERS: ADMIT Specialist; ATTEND Hospitalist
PROC: 30233N1 Transfusion of Nonautologous Red Blood Cells into Peripheral Vein, Percutaneous Approach (ICD-10-PCS; 2017-04-02)
PROC: 0SCD0ZZ Extirpation of Matter from Left Knee Joint, Open Approach (ICD-10-PCS; 2017-04-03)
PROC: 0SCC0ZZ Extirpation of Matter from Right Knee Joint, Open Approach (ICD-10-PCS; 2017-04-03)
PROC: 0LUQ07Z Supplement Right Knee Tendon with Autologous Tissue Substitute, Open Approach (ICD-10-PCS; 2017-04-03)
PROC: 0LUR07Z Supplement Left Knee Tendon with Autologous Tissue Substitute, Open Approach (ICD-10-PCS; principal; 2017-04-03 10:10)
PROC: 5A1D00Z (ICD-10-PCS; 2017-04-04)
DX: S76.112A Strain of left quadriceps muscle, fascia and tendon, initial encounter (principal); N18.6 End stage renal disease; I21.4 Non-ST elevation (NSTEMI) myocardial infarction; I12.0 Hypertensive chronic kidney disease with stage 5 chronic kidney disease or end stage renal disease; N25.81 Secondary hyperparathyroidism of renal origin; I42.0 Dilated cardiomyopathy; S76.111A Strain of right quadriceps muscle, fascia and tendon, initial encounter; J45.909 Unspecified asthma, uncomplicated; E87.5 Hyperkalemia; Z99.2 Dependence on renal dialysis; D63.1 Anemia in chronic kidney disease; Z95.810 Presence of automatic (implantable) cardiac defibrillator; X50.9XXA Other and unspecified overexertion or strenuous movements or postures, initial encounter; D72.829 Elevated white blood cell count, unspecified; Z91.14 Patient's other noncompliance with medication regimen